=== PATIENT | female | born 1950 | race Caucasian/White ===

== ENCOUNTER 2020-01-05 10:16 | Emergency (ER) | payer OTHER, SELFPAY ==
--- NOTE | ~2020-01-05 | CT_ITS ---
EXAMINATION: CT abdomen pelvis w con DATE: 01/05/2020 11:35 INDICATION: Abdominal pain. TECHNIQUE: Computed tomography (CT) of the abdomen and pelvis was performed with 100 mL Omnipaque 350 intravenous contrast. Automated exposure control and iterative reconstruction technique were employe d. The dose-length product was 583.63 mGy-cm. COMPARISON: CT abdomen and pelvis 03/05/2019 FINDINGS: The visualized portions of the lung bases demonstrate mild atelectasis. No pleural effusion . The heart size is normal. There are coronary artery calcifications. No pericardial effusion. The li isaías, gallbladder, spleen, pancreas, and adrenal glands are normal. There is cortical thinning of the kidneys. There is an umbilical hernia containing fat. There is diverticulosis of the colon. There is fat stranding around a diverticulum of the descending colon, consistent with diverticulitis. The appe ndix is normal. There are no pathologically enlarged lymph nodes. There is no free intraperitoneal fl uid. There is severe lumbar spondylosis. IMPRESSION: 1. Acute diverticulitis of descending colon. No perforation or abscess. Reviewed, dictated and finalized at location A.
[2020-01-05 10:17] VITALS: BP 164/80; PULSE 67; RESP 16; TEMP 36.6; O2SAT 97
--- NOTE | 2020-01-05 10:25 | ED.ABDPAIN ---
HPI - Abdominal Pain General Chief Complaint: Abdominal Pain Stated Complaint: Abd Pain Time Seen by Provider: 01/05/20 10:20 Source: RN notes reviewed History of Present Illness HPI narrative: Patient presents emergency department from home for abdominal pain. Patient states symptoms been ongoing for approximately 1 week. The pain is diffuse throughout the abdomen. Described as sharp and stabbing progressively worsening. Patient states she denies any fevers or chills chest pain shortness of breath nausea vomiting diarrhea or any other symptoms. States she was seen by her PCP last week did have a covid test that was negative at that time Related Data Home Medications Medication Instructions Recorded Confirmed cholecalciferol (vitamin D3) 01/05/20 diclofenac sodium 75 mg PO DAILY 01/05/20 Allergies Allergy/AdvReac Type Severity Reaction Status Date / Time No Known Allergies Allergy Unverified 01/05/20 10:49 Review of Systems Review of Systems: Narrative: Gen.: Denies fevers or chills ENT: Denies congestion Respiratory: Denies shortness of breath or cough CV: Denies chest pain or palpitations GI: See HPI denies burning, urgency, frequency or hematuria Musculoskeletal: Denies back pain or muscle pain Neuro: Denies numbness, tingling, weakness or focal weakness Skin: Denies rash Except as documented, all other systems reviewed and negative [facility] Past Medical History Medical History (Updated 01/05/20 @ 11:48 by Graeme Deal DO) Patient denies significant medical history Family History Family History (Updated 04/05/16 @ 23:19 by DOCTOR UNKNOWN) Mother Hypertension Family history of chronic obstructive pulmonary disease Family history of diabetes mellitus in first degree relative Family history of type 2 diabetes mellitus Father Hypertension Malignant neoplasm of prostate Social History Social History (Updated 01/05/20 @ 10:26 by Graeme Deal DO) Smoking packs per day: 0.5 Smoking cigarettes per day: 10.0 Smoking status: Smoker, status unknown Alcohol intake: never Exam Narrative: Exam Narrative: APPEARANCE: No acute distress, nontoxic, resting in bed HEENT: Normocephalic, atraumatic, OMM RESPIRATORY: No respiratory distress, clear to auscultation bilaterally with no rhonchi wheezing or rales CARDIOVASCULAR: RRR s murmur ABDOMINAL: Soft, nondistended, diffusely tender to palpation, no rebound or guarding MUSCULOSKELETAl: Moves all extremities. No clubbing, cyanosis or edema. NEURO: Awake and alert. Following commands, speech normal, no focal deficits SKIN:: Warm, dry. Normal Color PSYCHIATRIC: Normal affect/mood Course Course Emergency Course: Patient states that they are feeling much better at this time. States abdominal pain has improved. Repeat abdominal exam shows the patient's abdomen to be soft with no surgical abdomen present. Discussed with patient results of workup and diagnosis. Discussed need for follow-up with primary care physician, reasons to return to the emergency department in proper use of medication. Patient understands and agrees to current treatment plan Vital Signs Vital signs: Vital Signs Temperature 97.9 F 01/05/20 10:17 Pulse Rate 67 01/05/20 10:17 Respiratory Rate 16 01/05/20 10:17 Blood Pressure 164/80 H 01/05/20 10:17 Pulse Oximetry 97 01/05/20 10:17 Temperature 97.9 F 01/05/20 10:17 Pulse Rate 67 01/05/20 10:17 Respiratory Rate 16 01/05/20 10:17 Blood Pressure 164/80 H 01/05/20 10:17 Pulse Oximetry 97 01/05/20 10:17 MDM - Abdominal Pain MDM Narrative Medical decision making narrative: Patient's abdomen is soft without significant pain or signs of surgical abdomen on serial exams. Lab and x-ray evaluations are reviewed and patient is felt to be a reasonable candidate for outpatient management. Patient was instructed as to limitations of x-ray and laboratory evaluation and encouraged to return to ED
[2020-01-05 10:54] LABS: Basophils Absolute Auto 0.1 K/mm3 (0.0-0.1); Basophils Percent Auto 0.8 % (0.2-1.2); Eosinophils Absolute Auto 0.2 K/mm3 (0-0.3); Eosinophils Percent Auto 2.4 % (0-4.4); Hematocrit 50.6 % (37.0-47.0); Hemoglobin 16.8 g/dL (12.0-15.0); Immature Granulocyte Absolute 0.03 K/mm3 (0.00-0.031); Immature Granulocyte Percent A 0.4 % (0-0.5); Lymphocytes Absolute Auto 2.38 K/mm3 (0.9-3.2); Mean Corpuscular HGB Conc 33.2 g/dl (32-36); Mean Corpuscular Hemoglobin 29.9 pg (26-34); Mean Platelet Volume 10.5 fl (7.4-10.4); Monocytes Absolute Auto 0.5 K/mm3 (0.1-0.6); Monocytes Percent Auto 6.2 % (2.6-8.5); Neutrophils Absolute Auto 4.1 K/mm3 (1.3-6.7); Neutrophils Percent Auto 57.2 % (45.5-73.1); Nucleated Red Blood Cells Perc 0.4 % (0.0-0.2); Platelet Count Result 266 k/mm3 (150-375); Red Blood Count 5.62 M/mm3 (4.2-5.4); Red Cell Distribution Width 13.2 % (11.5-14.5); White Blood Count 7.2 K/mm3 (4.5-10.0)
[2020-01-05 10:56] LABS: Add Urine Microscopic? YES; Appearance Urine Cloudy (Clear); Bacteria Urine Trace /hpf; Bilirubin Urine Negative (Negative); Blood Urine Negative (Negative); Color Urine Yellow (Yellow); Glucose Urine UA Negative (Negative); Hyaline Casts Urine 15-19 /lpf; Ketones Urine Negative (Negative); Leukocyte Esterase Ur Negative LEU/UL (Negative); Mucus Urine Heavy /lpf; Nitrate Urine Negative (Negative); Protein Urine 1+ mg/dL (Negative); RBC Urine 0-2 /hpf (0-2); Specific Grav Ur 1.024 (1.001-1.035); Squamous Epithelial Cell Urine Many /hpf (Few)
[2020-01-05] MEDS: MORPHINE SULFATE 4 MG/ML INJ IV PUSH (10:56)
[2020-01-05] MEDS: SODIUM CHLORIDE 0.9% IV 1,000 ML 999 ML IV CONT (10:56)
[2020-01-05 11:10] LABS: Alanine Aminotransferase 26 U/L (4-35); Albumin Level 4.2 g/dL (3.5-5.1); Alkaline Phosphatase 97 U/L (38-126); Aspartate Amino Transferase 37 U/L (14-36); Bilirubin,Total 1.1 mg/dL (0.2-1.3); Blood Urea Nitrogen 14 mg/dL (7-17); Calcium 9.2 mg/dL (8.4-10.2); Carbon Dioxide 25 mmol/L (22-30); Chloride 106 mmol/L (98-107); Estimated CRCL calculation 55 ml/min; Estimated Glomerular Filt Rate > 60; Glucose 103 mg/dL (65-105); Lipase 136 U/L (23-300); Potassium 3.8 mmol/L (3.4-5.0); Sodium 138 mmol/L (137-145)
[2020-01-05] MEDS: AMOXICILLIN/CLAVULANATE K 875-125 MG TAB 1 TABLET PO (11:52)
[2020-01-05 11:53] VITALS: BP 133/72; PULSE 70; RESP 16; O2SAT 100
== END 2020-01-05 12:25 | disposition home or self-care (01) ==
PROVIDERS: Emergency Provider Emergency Medicine; PCP Family Medicine
DX: K57.32 Diverticulitis of large intestine without perforation or abscess without bleeding (principal); F17.210 Nicotine dependence, cigarettes, uncomplicated; K57.92 Diverticulitis of intestine, part unspecified, without perforation or abscess without bleeding
CPT/HCPCS: 36415; 74177; 80053; 81001; 83690; 85025; 87086; 96361; 96374; 99284; A9270; J2270; J7030; Q9967

== ENCOUNTER 2020-02-15 00:25 | Outpatient (CLI) | payer OTHER, SELFPAY ==
[2020-02-15 18:58] LABS: SARS-CoV-2 RNA PCR Negative
== END 2020-02-15 00:26 | disposition home or self-care (01) ==
LOC: ANHCOVIDDT 00:25
PROVIDERS: PCP Family Medicine; Visit Provider Internal Medicine Gastroenterology
DX: Z01.818 Encounter for other preprocedural examination (principal); Z11.59 Encounter for screening for other viral diseases
CPT/HCPCS: 87635; C9803; U0003

== ENCOUNTER 2020-02-17 01:40 | Day surgery (SDC) | payer OTHER, SELFPAY ==
[2020-02-07 14:14] VITALS: BMI 30.2
[2020-02-17 08:22] VITALS: BP 127/70; PULSE 93; RESP 16; TEMP 37.2; O2SAT 99; BMI 29.6
[2020-02-17] MEDS: LACTATED RINGERS 1,000 ML 150 ML IV CONT (08:38)
--- NOTE | 2020-02-17 08:50 | WPDANESEPPF ---
Anes - Initial Pre Proc Eval Procedure: Operation Date: 02/17/20 09:30 Proposed Procedures p Colonoscopy - Justo Khan DO Date/Time: 02/17/20 08:50 Surgeon: Justo Kahn DO Pre Op Diagnosis: Diverticulitis Patient Data Age: 70 Gender: F Height: 5 ft 4 in Weight: 78.4 kg Last Vital Signs Temp 98.9 F 02/17/20 08:22 Pulse 93 02/17/20 08:22 Resp 16 02/17/20 08:22 BP 127/70 02/17/20 08:22 Pulse Ox 99 02/17/20 08:22 Allergies Allergy/AdvReac Type Severity Reaction Status Date / Time No Known Allergies Allergy Unverified 02/17/20 08:13 Home Medications Medication Instructions Recorded Confirmed Type lisinopril 10 mg tablet 10 mg PO DAILY #90 tablet 09/03/19 02/17/20 Rx rosuvastatin 20 mg tablet 20 mg PO DAILY #90 tablet 09/03/19 02/17/20 Rx linaclotide 145 mcg capsule 145 mcg PO DAILY #90 cap 09/06/19 02/17/20 Rx cholecalciferol (vitamin D3) 50,000 unit PO WEEKLY 01/05/20 02/17/20 History diclofenac sodium 75 mg PO DAILY 01/05/20 02/17/20 History clobetasol 1 applic TOPICAL HS 02/17/20 02/17/20 History estradiol [Estrace] 1 g VAGINAL WEEKLY 02/17/20 02/17/20 History Patient hx anesthesia problems: none Family hx anesthesia problems: none PMFSH Past Medical History Medical History (Updated 02/17/20 @ 08:49 by Jackson Wang MD) Hyperlipidemia Hypertension Patient denies significant medical history Family History Family History (Updated 04/05/16 @ 23:19 by DOCTOR UNKNOWN) Mother Hypertension Family history of chronic obstructive pulmonary disease Family history of diabetes mellitus in first degree relative Family history of type 2 diabetes mellitus Father Hypertension Malignant neoplasm of prostate Social History Social History (Updated 01/05/20 @ 10:26 by Graeme Deal DO) Smoking packs per day: 0.5 Smoking cigarettes per day: 10.0 Smoking status: Smoker, status unknown Alcohol intake: never Anes - Eval Final PreProcedure Day of Procedure 06/11/20 08:50 Patient weight: normal Heart: regular rate and rhythm Lungs: clear to auscultation Airway: Mallampati scale class II Neurological: alert and oriented Last oral intake: >/= 8 hours ASA classification: II Emergent: no Anesthetic plan: proceed Anesthesia type and monitoring: general GIVS and standard monitoring Informed Consent: The patient's anesthetic plan and its attendant risks and benefits were discussed with the patient/family/POA. Questions were solicited and answers provided to the satisfaction of the patient/family/POA.
--- NOTE | 2020-02-17 09:14 | PM.IMHP ---
H&P: HPI History of Present Illness Chief complaint: Diverticulitis [facility] Past Medical History Medical History (Updated 02/17/20 @ 09:14 by Justo Kahn DO) Chronic idiopathic constipation Diverticulitis Hyperlipidemia Hypertension Vitamin D deficiency Surgical History Surgical History (Updated 02/17/20 @ 09:14 by Justo Kahn DO) H/O colonoscopy Family History Family History (Updated 04/05/16 @ 23:19 by DOCTOR UNKNOWN) Mother Hypertension Family history of chronic obstructive pulmonary disease Family history of diabetes mellitus in first degree relative Family history of type 2 diabetes mellitus Father Hypertension Malignant neoplasm of prostate Social History Social History (Updated 01/05/20 @ 10:26 by Graeme Deal DO) Smoking packs per day: 0.5 Smoking cigarettes per day: 10.0 Smoking status: Smoker, status unknown Alcohol intake: never Meds Home Medications and Allergies Home Medications Medication Instructions Recorded Confirmed Type lisinopril 10 mg tablet 10 mg PO DAILY #90 tablet 09/03/19 02/17/20 Rx rosuvastatin 20 mg tablet 20 mg PO DAILY #90 tablet 09/03/19 02/17/20 Rx linaclotide 145 mcg capsule 145 mcg PO DAILY #90 cap 09/06/19 02/17/20 Rx cholecalciferol (vitamin D3) 50,000 unit PO WEEKLY 01/05/20 02/17/20 History diclofenac sodium 75 mg PO DAILY 01/05/20 02/17/20 History clobetasol 1 applic TOPICAL HS 02/17/20 02/17/20 History estradiol [Estrace] 1 g VAGINAL WEEKLY 02/17/20 02/17/20 History Allergies Allergy/AdvReac Type Severity Reaction Status Date / Time No Known Allergies Allergy Unverified 02/17/20 08:13 Vital Signs Vital Signs - 24 hr 02/17/20 08:22 Temperature 37.2 C Pulse Rate 93 Respiratory Rate 16 Blood Pressure 127/70 Pulse Oximetry 99
--- NOTE | 2020-02-17 09:16 | PM.IMHP ---
H&P: HPI History of Present Illness Chief complaint: Diverticulitis Narrative: Reason for visit diverticulitis and colonoscopy. This very pleasant lady's seen at the request of the primary physician. The patient was examined. Impression: History of diverticulitis. Chronic idiopathic constipation. Hyperlipidemia. Hypertension. Vitamin-D deficiency. Recommendation: Colonoscopy. history: This very pleasant lady has a history of diverticulitis. She has been on true 3 rounds of antibiotics. She is here for colonoscopy to assess for underlying inflammatory neoplastic disease. He does have history of chronic idiopathic constipation controlled with Linzess. She had the either a previous colonoscopy or flexible sigmoidoscopy that was negative. This was in the distant past. General: very pleasant patient in no acute distress. HEENT: Head was normocephalic sclerae is clear mouth without masses neck was supple. Heart: Rate rhythm regular without S3 or S4. Lungs: CTA. Abdomen: Soft with no guarding or rigidity. Bowel sounds were active. Neurologic: Cranial nerves 2 through 12 intact. No focal defects. No clonus. Musculoskeletal system: Revealed no joint tenderness or swelling no muscle atrophy. Extremities: Reveal no significant edema. Skin: Warm and dry with normal turgor. Mental status: intact. Patient is alert and oriented. Review of Systems Review of Systems: All systems reviewed & are unremarkable except as noted in HPI and below PMFSH Past Medical History Medical History (Updated 02/17/20 @ 09:14 by Justo Kahn DO) Chronic idiopathic constipation Diverticulitis Hyperlipidemia Hypertension Vitamin D deficiency Surgical History Surgical History (Updated 02/17/20 @ 09:14 by Justo Kahn DO) H/O colonoscopy Family History Family History (Updated 04/05/16 @ 23:19 by DOCTOR UNKNOWN) Mother Hypertension Family history of chronic obstructive pulmonary disease Family history of diabetes mellitus in first degree relative Family history of type 2 diabetes mellitus Father Hypertension Malignant neoplasm of prostate Social History Social History (Updated 01/05/20 @ 10:26 by Graeme Deal DO) Smoking packs per day: 0.5 Smoking cigarettes per day: 10.0 Smoking status: Smoker, status unknown Alcohol intake: never Meds Home Medications and Allergies Home Medications Medication Instructions Recorded Confirmed Type lisinopril 10 mg tablet 10 mg PO DAILY #90 tablet 09/03/19 02/17/20 Rx rosuvastatin 20 mg tablet 20 mg PO DAILY #90 tablet 09/03/19 02/17/20 Rx linaclotide 145 mcg capsule 145 mcg PO DAILY #90 cap 09/06/19 02/17/20 Rx cholecalciferol (vitamin D3) 50,000 unit PO WEEKLY 01/05/20 02/17/20 History diclofenac sodium 75 mg PO DAILY 01/05/20 02/17/20 History clobetasol 1 applic TOPICAL HS 02/17/20 02/17/20 History estradiol [Estrace] 1 g VAGINAL WEEKLY 02/17/20 02/17/20 History Allergies Allergy/AdvReac Type Severity Reaction Status Date / Time No Known Allergies Allergy Unverified 02/17/20 08:13 Vital Signs Vital Signs - 24 hr 02/17/20 08:22 Temperature 37.2 C Pulse Rate 93 Respiratory Rate 16 Blood Pressure 127/70 Pulse Oximetry 99
[2020-02-17 09:39] VITALS: BP 109/50; PULSE 86; RESP 26; O2SAT 92
[2020-02-17 09:49] VITALS: BP 120/67; PULSE 81; RESP 24; O2SAT 99
[2020-02-17 09:59] VITALS: BP 129/81; PULSE 72; RESP 21; O2SAT 100
== END 2020-02-17 10:20 | disposition home or self-care (01) ==
PROVIDERS: PCP Family Medicine; Visit Provider Internal Medicine Gastroenterology
PROC: 0DJD8ZZ Inspection of Lower Intestinal Tract, Via Natural or Artificial Opening Endoscopic (ICD-10-PCS; CPT 45378; principal; 2020-02-17 09:30)
DX: K57.30 Diverticulosis of large intestine without perforation or abscess without bleeding (principal); K64.8 Other hemorrhoids; K59.09 Other constipation; I10 Essential (primary) hypertension; E78.5 Hyperlipidemia, unspecified; E55.9 Vitamin D deficiency, unspecified; F17.210 Nicotine dependence, cigarettes, uncomplicated
CPT/HCPCS: 45378; J2001; J2704; J7120

== ENCOUNTER 2020-03-08 13:29 | Outpatient (CLI) | payer OTHER, SELFPAY ==
--- NOTE | ~2020-03-08 | CT_ITS ---
EXAMINATION: CT abdomen pelvis w con INDICATION: Diverticulitis, abdominal pain TECHNIQUE: Computed tomographic images of the abdomen and pelvis were obtained after the administrati on of 100 cc of Omnipaque 350 intravenous contrast. The dose-length product (DLP) was 603.23 mGy-cm. Automated exposure control and iterative reconstruction technique were employed. COMPARISON: 01/05/2020 FINDINGS: Minimal dependent atelectasis is present in the lung bases. The heart size is normal. The l iver, spleen, pancreas, gallbladder, and adrenal glands are normal. There are areas of scarring in th e otherwise normal kidneys. There is calcified and noncalcified atherosclerosis of the aorta and many other arteries. No pathologically enlarged abdominal or pelvic lymph nodes are identified. There is no free intraperitoneal gas or evidence of bowel obstruction. Colonic diverticulosis is present witho ut evidence of diverticulitis. The previously described diverticulitis of the descending colon has re solved. There is a fat-containing umbilical hernia. There is severe lumbar spondylosis. IMPRESSION: 1. Resolved diverticulitis of the descending colon. No acute findings. Reviewed, dictated and finalized at location A.
[2020-03-08 14:07] LABS: Estimated Glomerular Filt Rate > 60
== END 2020-03-08 13:30 | disposition home or self-care (01) ==
PROVIDERS: PCP Family Medicine; Visit Provider Internal Medicine Gastroenterology
DX: K57.92 Diverticulitis of intestine, part unspecified, without perforation or abscess without bleeding (principal)
CPT/HCPCS: 36415; 74177; Q9967

== ENCOUNTER 2020-04-11 06:41 | Emergency (ER) | payer OTHER, SELFPAY ==
--- NOTE | ~2020-04-11 | CT_ITS ---
EXAMINATION: CT abdomen pelvis w con INDICATION: Lower abdominal pain TECHNIQUE: Computed tomographic images of the abdomen and pelvis were obtained after the administrati on of 100 cc of Omnipaque 350 intravenous contrast. The dose-length product (DLP) was 569.63 mGy-cm. Automated exposure control and iterative reconstruction technique were employed. COMPARISON: 03/08/2020 FINDINGS: Minimal dependent atelectasis is present in the lung bases. The heart size is normal. The l iver, spleen, pancreas, gallbladder, and adrenal glands are normal. Again noted are areas of scarring in the otherwise normal kidneys. No pathologically enlarged abdominal or pelvic lymph nodes are iden tified. There is no free intraperitoneal gas or evidence of bowel obstruction. There is calcified ath erosclerosis of the aorta and many of the other arteries. Colonic diverticulosis is present without e vidence of diverticulitis. The appendix is normal. There is a fat-containing umbilical hernia. There is severe lumbar spondylosis. IMPRESSION: 1. No CT correlate for the patient's symptoms. Reviewed, dictated and finalized at location A.
--- NOTE | ~2020-04-11 | XR_ITS ---
EXAMINATION: XR chest 1V portable INDICATION: Shortness of breath and chest pain TECHNIQUE: Portable AP chest at 0727 hours COMPARISON: 08/21/2016 FINDINGS: The lungs are free of acute opacities. There is no pleural effusion or pneumothorax. The ca rdiomediastinal silhouette is normal. 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 IMPRESSION: 1. No acute cardiopulmonary abnormality. Reviewed, dictated and finalized at location A.
[2020-04-11 06:46] VITALS: BP 129/89; PULSE 97; RESP 16; TEMP 36.8; O2SAT 100
[2020-04-11 07:00] LABS: Basophils Absolute Auto 0.1 K/mm3 (0.0-0.1); Basophils Percent Auto 0.7 % (0.2-1.2); Eosinophils Absolute Auto 0.1 K/mm3 (0-0.3); Eosinophils Percent Auto 1.4 % (0-4.4); Hematocrit 52.2 % (37.0-47.0); Hemoglobin 17.6 g/dL (12.0-15.0); Immature Granulocyte Absolute 0.02 K/mm3 (0.00-0.031); Immature Granulocyte Percent A 0.2 % (0-0.5); Lymphocytes Absolute Auto 2.95 K/mm3 (0.9-3.2); Lymphocytes Percent Auto 35.6 % (18.3-44.2); Mean Corpuscular HGB Conc 33.7 g/dl (32-36); Mean Corpuscular Hemoglobin 30.5 pg (26-34); Mean Corpuscular Volume 90.5 fl (80-100); Mean Platelet Volume 10.7 fl (7.4-10.4); Monocytes Absolute Auto 0.6 K/mm3 (0.1-0.6); Neutrophils Absolute Auto 4.6 K/mm3 (1.3-6.7); Neutrophils Percent Auto 55.1 % (45.5-73.1); Platelet Count Result 242 k/mm3 (150-375); Red Blood Count 5.77 M/mm3 (4.2-5.4); White Blood Count 8.3 K/mm3 (4.5-10.0)
--- NOTE | 2020-04-11 07:06 | ECG_ITS ---
Measurements Intervals [place] Rate: 91 P: 60 [place]: 145 QRS: 29 QRSD: 94 T: 62 QT: 350 QTc: 432 Interpretive Statements SINUS RHYTHM DELAYED PRECORDIAL R/S TRANSITION BORDERLINE ST-T WAVE ABNORMALITY- HIGH LATERAL LEADS BASELINE WANDER- II, III, AVR, AVL, AVF, V1-V3 BORDERLINE ECG Electronically Signed On 04-11-2020 7:41:44 CDT by Calos Tan D.O.
[2020-04-11 07:12] LABS: Alanine Aminotransferase 25 U/L (4-35); Albumin Level 4.2 g/dL (3.5-5.1); Alkaline Phosphatase 83 U/L (38-126); Anion Gap 12.8 mmol/L (7-16); Aspartate Amino Transferase 33 U/L (14-36); Blood Urea Nitrogen 11 mg/dL (7-17); Calcium 9.6 mg/dL (8.4-10.2); Carbon Dioxide 25 mmol/L (22-30); Chloride 104 mmol/L (98-107); Estimated Glomerular Filt Rate > 60; Glucose 107 mg/dL (65-105); Lipase 131 U/L (23-300); Potassium 3.8 mmol/L (3.4-5.0); Sodium 138 mmol/L (137-145)
--- NOTE | 2020-04-11 07:14 | ED.ABDPAIN ---
HPI - Abdominal Pain General Chief Complaint: Abdominal Pain Stated Complaint: abdominal and chest pain for 7 days Time Seen by Provider: 04/11/20 07:03 Source: patient Mode of arrival: ambulatory Limitations: no limitations History of Present Illness HPI narrative: This patient is a 70 year old female with history of diverticulitis who presents for evaluation of left lower abdominal pain. She states she has had left lower abdominal pain and upper abdominal pain for 1 week. This pain is similar to her episodes of diverticulitis so she has been on antibiotics for 6 days. She describes her pain as contractions . She has associated nausea but no fever, vomiting or diarrhea. This would be her 4th episode of diverticulitis, so she has been referred to general surgeon, Dr. Crandall. elicited complaint: abdominal pain Onset (ago): day(s) (7) Location: epigastric and LLQ Pain scale (0-10): 5 Quality: cramping Exacerbating factors: nothing Relieving factors: nothing Associated symptoms: nausea Treatments prior to arrival: other (antibiotics for 6 days) Related Data Home Medications Medication Instructions Recorded Confirmed cholecalciferol (vitamin D3) 50,000 unit PO WEEKLY 01/05/20 02/17/20 diclofenac sodium 75 mg PO DAILY 01/05/20 02/17/20 clobetasol 1 applic TOPICAL HS 02/17/20 02/17/20 estradiol [Estrace] 1 g VAGINAL WEEKLY 02/17/20 02/17/20 nystatin 100,000 unit/mL oral 1 ml PO DAILY 03/09/20 suspension Allergies Allergy/AdvReac Type Severity Reaction Status Date / Time metronidazole AdvReac Vomiting Verified 04/11/20 06:51 Review of Systems Review of Systems: All systems reviewed & are unremarkable except as noted in HPI and below Constitutional: Constitutional: Denies chills and Denies fever(s) Respiratory: Respiratory: Denies cough and Reports dyspnea Gastrointestinal: Gastrointestinal: Reports abdominal pain, Reports constipation, Denies diarrhea and Denies vomiting Genitourinary: Genitourinary: Reports no additional female genitourinary complaints [facility] Past Medical History Medical History Chronic idiopathic constipation Diverticulitis Hyperlipidemia Hypertension Vitamin D deficiency Social History Social History Smoking packs per day: 0.5 Smoking cigarettes per day: 10.0 Smoking status: Smoker, status unknown Alcohol intake: never Substance use: never Gender identity (if verbalized by the patient): Female Exam Narrative: Exam Narrative: GENERAL: Well-appearing, well-nourished, and in no acute distress. HEAD: Normocephalic, atraumatic EYES: PERRLA and EOMI, conjunctiva clear without discharge THROAT:Mucous membranes moist, Oropharynx normal without erythema, exudate, peritonsillar swelling or fluctuance NECK: Supple, without lymphadenopathy or mass RESPIRATORY: No respiratory distress, Airway patent, Respirations non-labored, Clear to auscultation without rales, rhonchi or wheeze HEART: Regular rate and rhythm. No murmur heard. Normal peripheral pulses. ABDOMEN: Soft, Diffuse tenderness, nondistended, normal active bowel sounds. No masses. No rebound or guarding, No organomegaly. EXTREMITIES: No edema, normal strength with full range of motion. SKIN: Warm, dry, normal color without rash NEURO: Alert and oriented x3. CN 2-12 grossly intact. No focal deficits. PSYCH: Normal mood and affect. Course Reevaluation(s) Reevaluation #1: I have discussed with patient that labs are unremarkable and CT does not show anything to explain her pain. She is in no acute distress. She will follow up with [facility] Date: 04/11/20 Time: 09:14 Vital Signs Vital signs: Vital Signs Temperature 98.2 F 04/11/20 06:46 Pulse Rate 97 04/11/20 06:46 Respiratory Rate 16 04/11/20 06:46 Blood Pressure 129/89 04/11/20 06:46 Pulse Oximetry 100 04/11/20 06:46
[2020-04-11 07:16] LABS: Add Urine Microscopic? YES; Appearance Urine Turbid (Clear); Bacteria Urine 1+ /hpf; Bilirubin Urine Negative (Negative); Blood Urine Negative (Negative); Color Urine Amber (Yellow); Glucose Urine UA Negative (Negative); Hyaline Casts Urine 50+ /lpf; Ketones Urine Trace mg/dL (Negative); Leukocyte Esterase Ur Negative LEU/UL (Negative); Mucus Urine Heavy /lpf; Nitrate Urine Negative (Negative); Protein Urine 2+ mg/dL (Negative); Squamous Epithelial Cell Urine Many /hpf (Few); WBC Clumps Urine Present /HPF; WBC Urine 31-50 /hpf
[2020-04-11 07:30] VITALS: BP 123/68; PULSE 80; RESP 16; O2SAT 99
[2020-04-11] MEDS: SODIUM CHLORIDE 0.9% IV 1,000 ML 999 ML IV CONT (07:38)
[2020-04-11] MEDS: ONDANSETRON INJ 4 MG/2 ML VIAL IV PUSH (07:38)
[2020-04-11 07:43] LABS: Prothrombin Time 12.6 Seconds (11.1-14.7)
[2020-04-11 07:44] LABS: Lactic Acid Reflex 1.4 mmol/L (0.7-2.1); Partial Thromboplastin Time 26.4 SECONDS (22.3-36.8)
[2020-04-11 07:56] LABS: Troponin I < 0.012 ng/mL (0.000-0.034)
[2020-04-11 09:20] VITALS: BP 135/72; PULSE 76; RESP 16; O2SAT 96
== END 2020-04-11 09:20 | disposition home or self-care (01) ==
PROVIDERS: Emergency Medicine; Emergency Provider General Practice; PCP Family Medicine
DX: R10.32 Left lower quadrant pain (principal); E78.5 Hyperlipidemia, unspecified; I10 Essential (primary) hypertension; E55.9 Vitamin D deficiency, unspecified; F17.210 Nicotine dependence, cigarettes, uncomplicated; R94.31 Abnormal electrocardiogram [ECG] [EKG]
CPT/HCPCS: 36415; 71045; 74177; 80053; 81001; 83605; 83690; 84484; 85025; 85610; 85730; 87077; 87086; 87088; 87186; 93005; 96365; 96375; 99284; J0131; J2405; J7030; Q9967

== ENCOUNTER 2020-04-26 08:51 | Outpatient (CLI) | payer OTHER, SELFPAY ==
--- NOTE | ~2020-04-26 | US_ITS ---
EXAMINATION: US abdomen complete EXAM DATE: 04/26/2020 10:08 INDICATION: Right upper quadrant pain. TECHNIQUE: Multiple grayscale and Doppler images of the complete abdomen were obtained (by a technolo gist who performed the scan) and subsequently reviewed. There is no prior study for comparison. FINDINGS: The abdominal aorta is normal in caliber. Visualized portion IVC is patent. The pancreatic head a nd body are normal in appearance. The pancreatic tail is not visualized. The liver has normal echogenicity and contour. There are no focal liver lesions identified. There is no evidence of intrahepatic biliary duct dilation. Portal venous flow was seen in the hepatopedal , normal direction and has normal Doppler waveform. Common bile duct measures 4 mm, which is normal. The gallbladder wall is normal in thickness, with ex pected amount of distention. No sonographic evidence of pericholecystic fluid. There is no cholelit hiases. Technologist performing exam reports patient did not demonstrate sonographic Aparicio's sign. Please note that this sign is less reliable in patients who have received pain medication. Right kidney: There is normal contour and echogenicity. It measures 10.8 x 4.9 x 4.7 centimeters. There are no focal renal lesions identified. There is no hydronephrosis. Left kidney: There is normal contour and echogenicity. It measures 10.5 x 4.6 x 5.1 centimeters. Th ere is a 1.4 cm cyst. There is no hydronephrosis. The spleen measures 8.2 centimeters and is morphologically normal. IMPRESSION: 1. Unremarkable complete abdominal ultrasound exam. Reviewed, dictated and finalized at location B.
== END 2020-04-26 08:52 | disposition home or self-care (01) ==
PROVIDERS: PCP Family Medicine; Visit Provider Physician Assistant Medical
DX: R10.11 Right upper quadrant pain (principal)
CPT/HCPCS: 76700

== ENCOUNTER 2020-05-22 09:34 | Outpatient (CLI) | payer OTHER, SELFPAY ==
--- NOTE | ~2020-05-22 | NM_ITS ---
HEPATOBILIARY SCAN Procedure: Hepatobiliary scan performed following IV administration 4 mCi Tc 99m Choletec. At 60 min utes 1.6 mcg CCK administered IV for evaluation of gallbladder ejection fraction. Indication:Right upper quadrant pain Comparison: Ultrasound dated 04/26/2020 Findings: There is normal radiotracer uptake in the liver parenchyma with prompt excretion into the b iliary tract. Gallbladder visualized at 40 minutes. Small bowel visualized at 20 minutes. Normal g allbladder ejection fraction measures 78% (normal 10-90%, but most patients with gallbladder dysfunct ion have GBEF of less than 35%) Impression: 1: Normal hepatobiliary scan. Reviewed, dictated and finalized at location B. Impression: 1: Normal hepatobiliary scan.
== END 2020-05-22 09:35 | disposition home or self-care (01) ==
PROVIDERS: PCP Family Medicine; Visit Provider Physician Assistant Medical
DX: R10.11 Right upper quadrant pain (principal)
CPT/HCPCS: 78227; A9537; J2805

== ENCOUNTER 2020-05-23 08:30 | Outpatient (CLI) | payer OTHER, SELFPAY ==
--- NOTE | 2020-05-23 10:30 | NEURO_ITS ---
Patient Number: [id number] Impression: # Complains of pain and discomfort in right lower extremity. # History of back and neck surgery. # Normal nerve conduction study including motor, sensory and F-waves. # Normal needle/EMG exam. # Normal study. Nerve Conduction Studies Anti Sensory Summary Table Stim Site NR Peak (ms) P-T Amp (?V) Site1 Site2 Delta-P (ms) Dist (cm) Sudhir (m/s) Left Sup Fibular Anti Sensory (Ant Lat Mall) 14 cm 3.0 9.5 14 cm Ant Lat Mall 3.0 16.0 53 Right Sup Fibular Anti Sensory (Ant Lat Mall) 14 cm 2.7 30.4 14 cm Ant Lat Mall 2.7 16.0 59 Left Sural Anti Sensory (Lat Mall) Calf 3.7 8.6 Calf Lat Mall 3.7 16.0 43 Right Sural Anti Sensory (Lat Mall) Calf 3.2 34.2 Calf Lat Mall 3.2 16.0 50 Motor Summary Table Stim Site NR Onset (ms) O-P Amp (mV) Site1 Site2 Delta-0 (ms) Dist (cm) Sudhir (m/s) Left Peroneal Motor (Vastus Med) Ankle 3.6 3.0 Popit Ankle 7.4 38.0 51 Popit 11.0 2.2 Right Peroneal Motor (Vastus Med) Ankle 3.6 1.9 Popit Ankle 6.8 37.0 54 Popit 10.4 1.5 Left Tibial Motor (Abd Vasquez Brev) Ankle 4.4 5.5 Knee Ankle 7.5 42.0 56 Knee 11.9 7.3 Right Tibial Motor (Abd Vasquez Brev) Ankle 4.1 12.7 Knee Ankle 7.9 41.0 52 Knee 12.0 7.9 F Wave Studies NR F-Lat (ms) L-R F-Lat (ms) Left Peroneal (Mrkrs) (EDB) 44.26 0.00 Right Peroneal (Mrkrs) (EDB) 44.26 0.00 Left Tibial (Mrkrs) (Abd Hallucis) 45.98 0.62 Right Tibial (Mrkrs) (Abd Hallucis) 45.36 0.62 EMG Side Muscle Nerve Root Ins Act Fibs Amp Dur Recrt Comment Right AntTibialis Dp Br Fibular L4-5 Nml Nml Nml Nml Nml Right Gastroc Tibial S1-2 Nml Nml Nml Nml Nml Right Fibularis Long Sup Br Fibular L5-S1 Nml Nml Nml Nml Nml Right Flex Dig Long Tibial L5-S2 Nml Nml Nml Nml Nml Right Ext Dig Brev Dp Br Fibular L5, S1 Nml Nml Nml Nml Nml Left AntTibialis Dp Br Fibular L4-5 Nml Nml Nml Nml Nml Left Gastroc Tibial S1-2 Nml Nml Nml Nml Nml Left Fibularis Long Sup Br Fibular L5-S1 Nml Nml Nml Nml Nml Left Flex Dig Long Tibial L5-S2 Nml Nml Nml Nml Nml Left Ext Dig Brev Dp Br Fibular L5, S1 Nml Nml Nml Nml Nml Right QuadratusFem QuadFemoris L4-5, S1 Nml Nml Nml Nml Nml Left QuadratusFem QuadFemoris L4-5, S1 Nml Nml Nml Nml Nml MTDD
== END 2020-05-23 08:31 | disposition home or self-care (01) ==
PROVIDERS: PCP Family Medicine; Visit Provider Family Medicine
DX: M51.36 Other intervertebral disc degeneration, lumbar region (principal)
CPT/HCPCS: 95886; 95910

== ENCOUNTER → 2020-06-06 09:46 | Outpatient (CLI) | payer OTHER, SELFPAY ==
--- NOTE | ~2020-06-06 | MMUS_ITS ---
EXAMINATION: MM diagnostic lino BI w rosa, US breast LT limited HISTORY: Palpable lump in the upper outer quadrant of the left breast TECHNIQUE: Craniocaudal, mediolateral, and mediolateral oblique 3-D tomosynthesis images of the bandar ts were performed and synthetic 2-D images were generated. CAD analysis was submitted and interpreted . High resolution limited left breast ultrasound was performed. COMPARISON: 10/19/2018, 06/28/2015, 07/24/2012 BREAST PARENCHYMAL COMPOSITION: There are scattered areas of fibroglandular density. FINDINGS: MAMMOGRAPHIC FINDINGS: Right breast: There is no evidence of suspicious mass, calcification, or architectural distortion to suggest malignancy. There has been no suspicious interval change. Left breast: There is an approximately 2 cm irregular high density mass with indistinct margins in th e middle third of the breast at the 12:00 to 1:00 location 5 cm from the nipple corresponding to the palpable abnormality of concern. There are associated pleomorphic calcifications. ULTRASOUND: There is a 2.5 x 1.9 cm oval, hypoechoic mass with microlobulated margins and areas of posterior acou stic shadowing at the 12:00 location 7 cm from the nipple. Associated internal vascularity is also no ana luisa. IMPRESSION: 1. Suspicious left breast mass. 2. Ultrasound-guided biopsy is recommended. BI-RADS category 5, highly suggestive of malignancy. Reviewed, dictated and finalized at location A. IMPRESSION: 1. Suspicious left breast mass. 2. Ultrasound-guided biopsy is recommended. BI-RADS category 5, highly suggestive of malignancy.
== END ==
PROVIDERS: PCP Family Medicine; Visit Provider Nurse Practitioner
DX: N63.25 Unspecified lump in the left breast, overlapping quadrants (principal); R92.8 Other abnormal and inconclusive findings on diagnostic imaging of breast
CPT/HCPCS: 76642; 77062; 77066; G0279

== ENCOUNTER → 2021-09-12 10:23 | Outpatient (CLI) | payer OTHER, SELFPAY ==
--- NOTE | ~2021-09-12 | DEXA_ITS ---
Bone Density Report Name: ASHLEY CABRAL Age: 71 Sex: Female Ethnicity: White Date of : 1950 Indication: postmenopausal; screening for osteoporosis; height loss; cancer; hysterectomy; rheumatoid arthritis; Referring Provider: GIA HOPE Study: Bone densitometry was performed. Exam Date: September 12, 2021 Accession number: [id number] Bone Density: Region BMD T-score Z-score Classification AP Spine (L1-L4) 1.134 0.8 2.9 Normal Femoral Neck (Left) 0.775 -0.7 1.2 Normal Total Hip (Left) 0.837 -0.9 0.7 Normal Femoral Neck (Right) 0.817 -0.3 1.5 Normal Total Hip (Right) 0.868 -0.6 0.9 Normal Total Hip Mean 0.853 -0.8 0.8 Normal World Health Organization criteria for BMD impression classify patients as: Normal (T-score at or above -1.0), Osteopenia (T-score between -1.0 and -2.5), or Osteoporosis (T-score at or below -2.5). 10-year Fracture Risk: FRAX not reported because: All T-scores for Spine Total, Hip Total, Femoral Neck at or above -1.0 Clinical Information Provided by Patient: Has rheumatoid arthritis Has used the following medications: Vitamin D Has the following medical conditions: Cancer, Hysterectomy, breast cancer May 2020 Patient maximum height was 65 Menopause Age: 41 No regular weight bearing exercise Drinks caffeinated beverages Onset of menses at age 13 Number of children 2 Impression: The patient has normal bone mass. Discussion: BONE DENSITY IS ABOVE THE MINIMUM DESIRABLE LEVEL AT ALL SKELETAL SITES TESTED. This patient?s bone mineral density is above the minimum desirable level (T-score -1.0 or better) at all sites measured. The patient should follow a healthful lifestyle (good nutrition with adequate calcium and vitamin D, and appropriate weight-bearing exercise). Follow-Up: Consider repeating this study in 5 years or sooner if there is some new clinical indication. Reported by: [facility] on 09/12/2021 10:48:00 AM. Reviewed, dictated and finalized at location ATacos DANG
== END ==
PROVIDERS: PCP Family Medicine; Visit Provider Obstetrics & Gynecology Gynecology
DX: Z78.0 Asymptomatic menopausal state (principal)
CPT/HCPCS: 77080

== ENCOUNTER → 2021-09-27 02:19 | Outpatient (CLI) | payer OTHER, SELFPAY ==
[2021-09-27 21:12] LABS: SARS-CoV-2 RNA PCR Negative
== END ==
PROVIDERS: PCP Family Medicine; Visit Provider Family Medicine
DX: J06.9 Acute upper respiratory infection, unspecified (principal); R05.9 Cough, unspecified; Z20.822 Contact with and (suspected) exposure to COVID-19
CPT/HCPCS: C9803; U0003; U0005

== ENCOUNTER → 2022-12-05 14:18 | Outpatient (CLI) | payer OTHER, SELFPAY ==
--- NOTE | ~2022-12-05 | MR_ITS ---
MRI of the right knee Clinical history: Loose body Technique: Coronal proton density and proton density-weighted images, sagittal proton-density and T2 fat-sat images, and axial proton-density fat-saturated images were acquired. Findings: Anterior and posterior cruciate ligaments are intact. Medial collateral ligament and the la teral collateral ligament complex are intact. Popliteus tendon is intact. Medial and lateral menisci are intact, without evidence of tear. There is mild intrasubstance degener ative signal of the medial meniscus. There is moderate chondromalacia at the medial joint line. Lateral compartment articular cartilage is well preserved. There is diffuse high-grade chondromalacia patella. There is extensive moderate james dromalacia the femoral trochlea. Moderate tricompartmental osteophytes are present. Bone marrow signa ls are essentially unremarkable. Extensor mechanism is intact. There is mild edema of the quadriceps fat pad. No joint effusion or Julissa er's cyst. Impression: Moderate tricompartmental osteoarthritis, as detailed above, worst in the patellofemoral compartment. 7 mm intra-articular loose body, posterior to the PCL, as detailed above. No ligamentous injury or meniscal tear. Mild edema of the quadriceps fat pad. Correlate for impingement. Reviewed, dictated and finalized at [facility]. there is a probable 7 mm intra -articular loose body posterior to the PCL (sagittal image 16). Impression: Moderate tricompartmental osteoarthritis, as detailed above, worst in the zepeda lofemoral compartment. 7 mm intra-articular loose body, posterior to the PCL, as detailed above. No ligamentous injury or meniscal tear. Mild edema of the quadriceps fat pad. Correlate for impingement.
== END ==
PROVIDERS: PCP Family Medicine; Visit Provider Orthopaedic Surgery
DX: M23.41 Loose body in knee, right knee (principal); M17.11 Unilateral primary osteoarthritis, right knee
CPT/HCPCS: 73721

== ENCOUNTER → 2023-07-15 13:30 | Outpatient (CLI) | payer OTHER, SELFPAY ==
--- NOTE | ~2023-07-15 | XR_ITS ---
EXAMINATION: XR chest 2V Exam Date/Time: 07/15/2023 13:47 POLISHING MACHINE TENDER HISTORY: R06.02 - Shortness of breath Comparison: 04/11/2020. RESULT: Lines, tubes, and devices: None. Lungs and pleura: Linear scar/atelectasis in the right midlung, otherwise clear. Cardiomediastinal silhouette: Right hemidiaphragm elevation, otherwise stable. Other: No acute osseous or upper abdominal finding. IMPRESSION: Right hemidiaphragm elevation. Right midlung scar/atelectasis. Reviewed, dictated and finalized at location K. SHING MACHINE TENDER
== END ==
PROVIDERS: PCP Family Medicine; Visit Provider Family Medicine
DX: Q79.1 Other congenital malformations of diaphragm (principal); J98.11 Atelectasis; R06.02 Shortness of breath
CPT/HCPCS: 71046

== ENCOUNTER 2023-08-02 03:22 | Inpatient (IN) | payer OTHER, MEDICARE, SELFPAY ==
[2023-08-02] VITALS (29 sets, daily range): BP systolic 106–176; BP diastolic 50–80; PULSE 63–96; RESP 14–24; TEMP 36.3–36.9; O2SAT 90–100
--- NOTE | ~2023-08-02 | XR_ITS ---
EXAMINATION: XR chest 2V DATE: 08/02/2023 04:02 INDICATION: Chest pressure TECHNIQUE: Frontal and lateral views of the chest are obtained COMPARISON: 07/15/2023 FINDINGS: The lung volumes are low. There are minimal airspace opacities of the left lung base. No pl eural effusion or pneumothorax. The cardiomediastinal silhouette is normal. There is mild thoracic sp ondylosis. There is moderate osteoarthritis of the shoulders. IMPRESSION: 1. Left basilar airspace opacity, consistent with atelectasis versus pneumonia. Reviewed, dictated and finalized at location F. S NOTES DEVELOPER
--- NOTE | ~2023-08-02 | CT_ITS ---
EXAMINATION: CTA chest PE protocol DATE: 08/02/2023 06:01 INDICATION: Chest pain TECHNIQUE: Computed tomography angiography (CTA) of the chest was performed with 100 mL Omnipaque-350 intravenous contrast timed to evaluate the pulmonary arteries. Coronal maximum intensity projection 3D-reconstructions were created by the technologist. The dose-length product (DLP) was 238.78 mGy-cm. Automated exposure control and iterative reconstruction technique were employed. COMPARISON: None. FINDINGS: The pulmonary arteries are well-opacified. No pulmonary embolism is identified. There is mi ld dependent atelectasis. There is elevation of the right hemidiaphragm. No pleural effusion or pneum othorax. No pathologically enlarged thoracic lymph nodes are identified. The heart size is normal. Th ere is mild thoracic spondylosis. IMPRESSION: 1. No pulmonary embolus identified. 2. Mild atelectasis. Reviewed, dictated and finalized at location F. NG MACHINE OPERATOR
--- NOTE | 2023-08-02 03:24 | ECG_ITS ---
Measurements Intervals [place] Rate: 93 P: 55 IA: 168 QRS: -10 QRSD: 103 T: 67 QT: 378 QTc: 472 Interpretive Statements SINUS RHYTHM DELAYED PRECORDIAL R/S TRANSITION CONSIDER INFERIOR INFARCT, AGE INDETERMINATE ABNORMAL ECG COMPARED TO ECG 04/11/2020 06:49:22 NO SIGNIFICANT CHANGES Electronically Signed On 08-02-2023 8:31:38 REFINER OPERATOR by Calos Tan D.O.
--- NOTE | 2023-08-02 03:26 | ECG_ITS ---
Measurements Intervals [place] Rate: 85 P: 52 NH: 184 QRS: -1 QRSD: 120 T: 48 QT: 403 QTc: 479 Interpretive Statements SINUS RHYTHM INTRAVENTRICULAR CONDUCTION DELAY DELAYED PRECORDIAL R/S TRANSITION INFERIOR INFARCT, AGE INDETERMINATE BASELINE ARTIFACT- I, II, AVR ABNORMAL ECG COMPARED TO ECG 08/02/2023 03:29:18 INTRAVENTRICULAR CONDUCTION DELAY NOW PRESENT Electronically Signed On 08-02-2023 8:41:24 TRUCK OPERATOR by Calos Tan D.O.
[2023-08-02 03:47] LABS: Basophils Absolute Auto 0.1 K/mm3 (0.0-0.1); Basophils Percent Auto 1.1 % (0.2-1.2); Eosinophils Absolute Auto 0.3 K/mm3 (0-0.3); Eosinophils Percent Auto 4.5 % (0-4.4); Hematocrit 46.2 % (37.0-47.0); Hemoglobin 14.6 g/dL (12.0-15.0); Immature Granulocyte Absolute 0.02 K/mm3 (0.00-0.031); Immature Granulocyte Percent A 0.3 % (0-0.5); Lymphocytes Absolute Auto 2.56 K/mm3 (0.9-3.2); Lymphocytes Percent Auto 41.4 % (18.3-44.2); Mean Corpuscular HGB Conc 31.6 g/dl (32-36); Mean Corpuscular Hemoglobin 29.4 pg (26-34); Mean Platelet Volume 9.7 fl (7.4-10.4); Monocytes Absolute Auto 0.5 K/mm3 (0.1-0.6); Monocytes Percent Auto 8.1 % (2.6-8.5); Neutrophils Absolute Auto 2.8 K/mm3 (1.3-6.7); Neutrophils Percent Auto 44.6 % (45.5-73.1); Platelet Count Result 191 k/mm3 (150-375); Red Blood Count 4.97 M/mm3 (4.2-5.4); White Blood Count 6.2 K/mm3 (4.5-10.0)
[2023-08-02] MEDS: ASPIRIN 81 MG CHEWABLE TABLET 324 MG PO (03:55)
[2023-08-02 03:59] LABS: Lipase 173 U/L (23-300); Magnesium 2.2 mg/dL (1.6-2.3); Phosphorus 4.8 mg/dL (2.5-4.5)
[2023-08-02 04:00] LABS: Alanine Aminotransferase 20 U/L (6-35); Alkaline Phosphatase 133 U/L (38-126); Anion Gap 8 mmol/L (8-16); Aspartate Amino Transferase 37 U/L (14-36); Bilirubin,Total 0.7 mg/dL (0.2-1.3); Blood Urea Nitrogen 24 mg/dL (7-17); Carbon Dioxide 23 mmol/L (22-30); Chloride 108 mmol/L (98-107); Estimated CRCL calculation 47 ml/min; Estimated Glomerular Filt Rate 55; Glucose 113 mg/dL (65-110); Potassium 3.8 mmol/L (3.4-5.0); Sodium 139 mmol/L (137-145)
[2023-08-02 04:05] LABS: INR 0.9; Prothrombin Time 12.5 Seconds (11.1-14.7)
[2023-08-02 04:06] LABS: Partial Thromboplastin Time 28.4 SECONDS (22.3-36.8)
[2023-08-02 04:08] LABS: NT Pro B Type Natriuretic Pept 112 pg/mL (19.9-100)
[2023-08-02 04:11] LABS: Troponin I < 0.012 ng/mL (0.000-0.034)
--- NOTE | 2023-08-02 05:20 | ED.GENADULT ---
HPI - General Adult General Chief complaint: Chest Pain Stated complaint: cp Time Seen by Provider: 08/02/23 03:26 History of Present Illness HPI narrative: This is a 73-year-old female presenting ED with chief complaint of chest pain. Patient says that at 2:00 a.m. while she was sleeping she started developing achy pain that radiated across her chest to the top of both arms.. 6/10 intensity, constant and getting worse. She has never experienced pain like this before there are no exacerbating or alleviating factors. He is not associated with nausea vomiting exertion diaphoresis. She has noted that she has had increased dyspnea on exertion. No history of congestive heart failure. No history of blood clots she does have remote history of breast cancer that was successfully treated as well as Factor 5 Leiden. Related Data Home Medications Medication Instructions Recorded Confirmed clobetasol 0.05 % topical cream 1 applic topical HS 02/17/20 07/14/23 estradiol 0.01% (0.1 mg/gram) 1 g vaginal WEEKLY 02/17/20 07/14/23 vaginal cream (Estrace) Allergies Allergy/AdvReac Type Severity Reaction Status Date / Time metronidazole AdvReac Vomiting Verified 08/02/23 03:53 [facility] Past Medical History Medical History Atherosclerosis of aorta Cervicalgia Chronic idiopathic constipation Degenerative disc disease, lumbar Drug-induced polyneuropathy Gastroesophageal reflux disease without esophagitis Generalized osteoarthritis Hyperlipidemia Hypertension 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, single episode, in full remission Nicotine dependence, cigarettes, in remission Surgical History Surgical History Bilateral cataracts 2016 and 2017 H/O cervical spine surgery Discectomy X2 C5-6 and C6-7 1985 H/O colonoscopy H/O removal of neck cyst larynx cyst removal 2014 History of partial mastectomy of left breast 11/06/2020 History of tubal ligation 1985 Hx of lumbar discectomy 06/11/2019 Family History Family History Mother Hypertension Family history of chronic obstructive pulmonary disease Family history of diabetes mellitus in first degree relative Family history of type 2 diabetes mellitus Father Hypertension Malignant neoplasm of prostate Social History Social History Smoking packs per day: 0.5 Smoking cigarettes per day: 10.0 Smoking status: Former smoker Tobacco type: cigarettes Second hand tobacco smoke exposure: No Alcohol intake: never Substance use: never Substance use type: does not use Lack of Transportation: No Lack of Food: Never True Current Housing: I Have Housing Concerned About Future Housing: No Difficulty Paying Gas/Electric Bills: No Difficulty Paying for Meds: No Currently Unemployed: No Education: Trade/Vocational Certificate Difficulty w/ Childcare or Family Care: No Living arrangements: with family Occupation/Education: retired Gender identity (if verbalized by the patient): Female Sexual Orientation (if Verbalized by the Patient): Straight or Heterosexual Spiritual care concerns: No Exam Narrative: APPEARANCE: No apparent distress. Head: atraumatic. EYES: EOMI, NOSE: Atraumatic NECK: Trachea midline RESPIRATORY: No increased rate of breathing, clear to auscultation CARDIOVASCULAR: RRR, no peripheral edema ABDOMINAL: Non-distended MUSCULOSKELETAl: No obvious deformities NEURO: Alert. Moving 4/4 extremities SKIN:: Warm, dry. Normal color PSYCHIATRIC: Normal affect Course Vital Signs Vital signs: Vital Signs Temperature 98.4 F 08/02/23 03:27 Pulse Rate 94 08/02/23 03:27 Respiratory Rate 16 08/02/23 03:27 Pulse Oximetry 99 08/02/23 03:27 Oxygen Delivery Room Air 11
[2023-08-02 05:41] LABS: Glucose Point of Care 107 mg/dl (65-105)
[2023-08-02 06:42] LABS: Appearance Urine Clear (Clear); Bilirubin Urine Negative (Negative); Blood Urine Negative (Negative); Color Urine Yellow (Yellow); Glucose Urine UA Negative (Negative); Ketones Urine Negative (Negative); Leukocyte Esterase Ur Negative LEU/UL (Negative); Nitrate Urine Negative (Negative); Protein Urine Negative (Negative); Urobilinogen Urine 0.2 mg/dL (<2.0)
[2023-08-02 06:48] LABS: Specific Grav Ur 1.054 (1.001-1.035)
[2023-08-02 06:49] LABS: Add Urine Microscopic? NO
[2023-08-02 06:58] LABS: Troponin I 0.253 ng/mL (0.000-0.034)
--- NOTE | 2023-08-02 07:21 | ECG_ITS ---
Rate [place] QRSd QT QTc P QRS T Severity 85 184 120 403 479 52 -1 48 Borderline ECG SINUS RHYTHM INTRAVENTRICULAR CONDUCTION DELAY DELAYED PRECORDIAL R/S TRANSITION INFERIOR INFARCT, AGE INDETERMINATE BASELINE ARTIFACT- I, II, AVR ABNORMAL ECG COMPARED TO ECG 08/02/2023 03:29:18 INTRAVENTRICULAR CONDUCTION DELAY NOW PRESENT Electronically Signed On 08-02-2023 8:41:24 PERIANESTHESIA MANAGER by Calos DANG
[2023-08-02] MEDS: HEPARIN SODIUM 5,000 UNITS/ML VIAL 4000 UNITS IV PUSH (07:30)
[2023-08-02] MEDS: HEPARIN SOD/D5W 100 UNITS/ML 25,000 UNITS/250 ML BAG 9 UNITS IV CONT (07:31)
[2023-08-02 07:44] LABS: Basophils Absolute Auto 0.1 K/mm3 (0.0-0.1); Eosinophils Absolute Auto 0.1 K/mm3 (0-0.3); Eosinophils Percent Auto 1.7 % (0-4.4); Hematocrit 42.3 % (37.0-47.0); Hemoglobin 13.6 g/dL (12.0-15.0); Immature Granulocyte Absolute 0.02 K/mm3 (0.00-0.031); Immature Granulocyte Percent A 0.3 % (0-0.5); Lymphocytes Absolute Auto 1.16 K/mm3 (0.9-3.2); Lymphocytes Percent Auto 20.2 % (18.3-44.2); Mean Corpuscular HGB Conc 32.2 g/dl (32-36); Mean Corpuscular Volume 93.4 fl (80-100); Mean Platelet Volume 9.9 fl (7.4-10.4); Monocytes Absolute Auto 0.2 K/mm3 (0.1-0.6); Monocytes Percent Auto 4.2 % (2.6-8.5); Neutrophils Absolute Auto 4.2 K/mm3 (1.3-6.7); Neutrophils Percent Auto 72.6 % (45.5-73.1); Platelet Count Result 182 k/mm3 (150-375); Red Blood Count 4.53 M/mm3 (4.2-5.4); Red Cell Distribution Width 13.8 % (11.5-14.5); White Blood Count 5.7 K/mm3 (4.5-10.0)
--- NOTE | 2023-08-02 07:46 | PM.IMHP ---
H&P: HPI History of Present Illness Date/Time: 08/02/23 07:46 Chief Complaint: Chest pain will Narrative: 73 years old lady with history of hypertension, anemia, GERD, anxiety, breast cancer, factor 5 Leiden, present ED with a chief complaint of chest . The pain started about 2:00 a.m. today, radiated both arms, severe, constant, aching. Patient had some short of breath with exertion, denies fever, chills, nausea vomiting diarrhea. Patient came to ED for evaluation and treatment, in the ED, initial troponin negative, but the 2nd troponin up to 0.253. EKG shows sinus rhythm, nonspecific ST T-wave changes. Patient has elevated BUN creatinine ratio 24/1.0. Chest x-ray shows no acute cardiopulmonary issues blood left basilar atelectasis, CTA shows no PE. Patient received heparin drip in the bolus, nitro paste, metoprolol 25 mg once in the ED. ER physician consulted the stubber. 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, single episode, in full remission Nicotine dependence, cigarettes, in remission Surgical History Surgical History Bilateral cataracts 2016 and 2017 H/O cervical spine surgery Discectomy X2 C5-6 and C6-7 1984 H/O colonoscopy H/O removal of neck cyst larynx cyst removal 2015 History of partial mastectomy of left breast 11/06/2020 History of tubal ligation 1985 Hx of lumbar discectomy 06/11/2019 Family History Family History Mother Hypertension Family history of chronic obstructive pulmonary disease Family history of diabetes mellitus in first degree relative Family history of type 2 diabetes mellitus Father Hypertension Malignant neoplasm of prostate Social History Social History Smoking packs per day: 0.75 Smoking cigarettes per day: 15.0 Smoking status: Former smoker Tobacco type: cigarettes Second hand tobacco smoke exposure: No Smoking end date: 05/28/20 Alcohol intake: never Substance use: never Substance use type: does not use Lack of Transportation: No Lack of Food: Never True Current Housing: I Have Housing Concerned About Future Housing: No Difficulty Paying Gas/Electric Bills: No Difficulty Paying for Meds: No Currently Unemployed: No Education: Associate Degree Difficulty w/ Childcare or Family Care: No Living arrangements: with family Occupation/Education: retired Gender identity (if verbalized by the patient): Female Sexual Orientation (if Verbalized by the Patient): Straight or Heterosexual Spiritual care concerns: No Meds Home Medications and Allergies Home Medications Medication Instructions Recorded Confirmed Type estradiol 0.01% (0.1 mg/gram) 1 g vaginal WEEKLY 02/17/20 08/02/23 History vaginal cream (Estrace) esomeprazole magnesium 40 mg 40 mg PO DAILY #30 caps 11/28/22 08/02/23 Rx capsule,delayed release lisinopril 20 mg tablet 20 mg PO DAILY #90 tabs 11/28/22 08/02/23 Rx nortriptyline 50 mg capsule 100 mg PO DAILY 90 days #180 caps 06/03/23 08/02/23 Rx rosuvastatin 20 mg tablet 20 mg PO DAILY #90 tabs 06/03/23 08/02/23 Rx sertraline 100 mg tablet 150 mg PO DAILY 30 days #45 tabs 06/03/23 08/02/23 Rx Allergies Allergy/AdvReac Type Severity Reaction Status Date / Time metronidazole AdvReac Vomiting Verified 08/02/23 03:53 Vital Signs Vital Signs - 24 hr 11
--- NOTE | 2023-08-02 08:02 | ECHO_ITS ---
Patient Info Name: Zbigniew Adams Age: 73 years : 1950 Gender: Female Ht: 69 in Wt: 176 lbs BSA: 1.98 m2 HR: 87 bpm BP: 142 / 60 mmHg Heart Rhythm: Sinus Arrhythmia Technical Quality: Good Exam Date: 08/02/2023 11:29 AM Exam Location: Echo Lab Patient Status: Inpatient Admit Date: 08/02/2023 Staff Ordering Physician: Jolanta Bey MD Family Literacy Coordinator: Carmen Maurer RDCS Attending Provider: Karla Aquino DO Exam Type: CA echo doppler color flow Study Info Indications - NSTEMI Complete two-dimensional, color flow and Doppler transthoracic echocardiogram is performed. Summary 1. Complete two-dimensional, color flow and Doppler transthoracic echocardiogram is performed. 2. Normal left ventricular size and systolic function with grade 1 diastolic noncompliance. 3. No ischemic wall motion abnormalities were identified. 4. Mildly sclerotic but not stenotic aortic. Left Ventricle Left ventricular chamber dimension is normal. Left ventricular systolic function is normal, estimated at 60-65%. The left ventricular diastolic function is grade I diastolic dysfunction. Right Ventricle Right ventricular chamber dimension is normal. Left Atria Left atrial chamber dimension is mildly enlarged. Right Atria Right atrial chamber dimension is normal. Aortic Valve The aortic valve is trileaflet. There is mild aortic valve sclerosis. Pulmonic Valve The pulmonic valve is not well visualized. Mitral Valve The mitral valve has normal leaflets. There is trace mitral valve regurgitation. Tricuspid Valve The tricuspid valve leaflets are normal. Pericardium/Pleural The pericardium appears normal. Aorta The aortic root size at the sinus of Valsalva is normal. Left Ventricular Outflow Tract Name Value Normal LVOT 2D LVOT Diameter 1.8 cm LVOT Doppler LVOT Peak Gradient 4 mmHg LVOT Mean Gradient 3 mmHg LVOT VTI 25 cm LVOT VTI/AV VTI Ratio 0.7 LVOT Stroke Volume 66 ml LVOT CO 4.3 l/min LVOT CI 2.2 l/min/m2 Pulmonic Valve Name Value Normal RVOT Doppler RVOT Peak Gradient 2 mmHg PV Doppler PV Peak Gradient 4 mmHg Mitral Valve Name Value Normal MV Doppler MV Decel [place] 403 cm/s2 MV PHT 75 ms MV Area (PHT) 2.9 cm2 4.0-5.0 MV Regurgitation Doppler
[2023-08-02] MEDS: ATORVASTATIN 40 MG TABLET 80 MG PO ×2 (08:05→10:42)
[2023-08-02] MEDS: METOPROLOL TARTRATE 50 MG TAB 25 MG PO (08:05)
[2023-08-02] MEDS: NITROGLYCERIN OINTMENT 1 INCH DOSE TRANSDERM (08:05)
[2023-08-02 08:31] LABS: Partial Thromboplastin Time 27.5 SECONDS (22.3-36.8); Prothrombin Time 13.2 Seconds (11.1-14.7)
[2023-08-02 08:31] LABS: Cholesterol 157 mg/dL (0-200); HDL Direct 77 mg/dL; Triglycerides 82 mg/dL (<150)
[2023-08-02 08:48] LABS: LDL Cholesterol Direct 66 mg/dL
[2023-08-02] MEDS: SODIUM CHLORIDE 0.9% IV 1,000 ML 100 ML IV CONT ×2 (10:42→20:07)
[2023-08-02] MEDS: METOPROLOL TARTRATE 12.5 MG TABLET PO ×2 (10:42→20:06)
[2023-08-02] MEDS: ASPIRIN 81 MG ENTERIC TABLET PO (10:43)
--- NOTE | 2023-08-02 10:49 | ECG_ITS ---
Measurements Intervals [place] Rate: 67 P: 6 NC: 168 QRS: 54 QRSD: 105 T: 5 QT: 420 QTc: 446 Interpretive Statements SINUS RHYTHM DELAYED PRECORDIAL R/S TRANSITION BORDERLINE T WAVE ABNORMALITY- INFERIOR LEADS BASELINE ARTIFACT- I, II, III, AVF BORDERLINE ECG COMPARED TO ECG 08/02/2023 07:21:53 NO SIGNIFICANT CHANGES Electronically Signed On 08-02-2023 12:18:50 SCHOOL OFFICE MANAGER by Calos Tan D.O.
--- NOTE | 2023-08-02 11:17 | PM.CNCAR ---
Assessment and Plan Assessment and plan (1) Non-ST elevation MT (NSTEMI): Code(s): I21.4 - Non-ST elevation (NSTEMI) myocardial infarction Status: Acute Plan This is a 73-year-old lady with history of hypertension and prior history of smoking. She enters the hospital with acute coronary syndrome/non ST elevation MT. She has been treated appropriately with guideline directed medical therapy and does feel significantly better. Her electrocardiogram has not shown any evolving changes which is reassuring. On the other hand she does still have some very mild waxing and waning chest discomfort that is of course of some concern. For the moment I will continue her current medical therapy and observe her through the rest of this morning this afternoon. Her symptoms remain stable and significantly improved will plan for coronary angiography on Friday. Obviously if she destabilizes we will proceed with this in a more emergent fashion Rafael Acosta MD [facility] WITH [facility] History of Present Illness History of Present Illness Consult date/time: 08/02/23 11:17 Reason For Visit: NSTEMI Narrative: This is a very pleasant 73-year-old woman I am seeing this morning at the request of the hospitalist because of acute coronary syndrome/non ST elevation MT. Patient is unknown to me prior to this consultation. She states that she came to the emergency room in the middle of the night because of some chest pain that began in awakened from sleep at about 2:00 a.m. in the morning. She describes this as a dull pressure-like low substernal pain that after a while a radiated up into the region of the left shoulder and into the left arm. The symptoms were not severe but were moderate in intensity after washing this for an hour or 2 she woke her up and had him bring her to the emergency room for evaluation. In the emergency department she was found to be moderately hypertensive and she had a benign looking electrocardiogram she was treated with aspirin, nitrates, heparin and troponin levels were slightly elevated and on the 2nd sample did rise a little bit further his she was then admitted to the IMU with a diagnosis of non ST elevation MT. She states that prior to this she has no risk for about 2-3 months with physical exertion such as walking shorter distances she is experiencing worsening shortness of breath. This shortness of breath is not related with any chest pain pressure or heaviness. She denies any symptoms of orthopnea PND edema palpitations or syncope. She has never had heart problems in the past that she can recall. She does see Dr. Hawley for her primary care needs which include hypertension management she also has a diagnosis of breast cancer about 3 years ago which was managed at [facility]. She had a lumpectomy followed by radiation and chemotherapy. 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 She appears to be relatively comfortable upon entering the room to see her today. She has intravenous heparin running. She states that her chest discomfort in the emergency room was totally resolved for a while it has been waxing and waning this morning no more than 1 to 2/10 severity scale. I had another electrocardiogram repeated because of that at the time of my consultation which does not show any differences compared to the tracing from the middle of the night. Review of Systems Constitutional: Constitutional: Reports no additional constitutional complaints Eyes: Eyes: Reports no additional eye complaints ENT: Reports system reviewed and no additional complaints, except as documented Cardiovascular: Cardiovascular: Reports as per HPI and Reports chest pain Respiratory: Respiratory: Reports dyspnea on exertion Gastrointestinal: Gastrointestinal: Reports no additional gastrointestinal complaints Genitourinary: Genitourinary: Reports no additional
[2023-08-02 15:02] LABS: Partial Thromboplastin Time 83.4 SECONDS (22.3-36.8)
[2023-08-02 21:24] LABS: Partial Thromboplastin Time 132.8 SECONDS (22.3-36.8)
[2023-08-03] VITALS (17 sets, daily range): BP systolic 117–171; BP diastolic 52–80; PULSE 72–85; RESP 18–20; TEMP 36.4–37.1; O2SAT 96–100
[2023-08-03] MEDS: ACETAMINOPHEN 325 MG TABLET 650 MG PO (01:18)
[2023-08-03 05:12] LABS: Basophils Absolute Auto 0.1 K/mm3 (0.0-0.1); Basophils Percent Auto 1.1 % (0.2-1.2); Eosinophils Absolute Auto 0.2 K/mm3 (0-0.3); Eosinophils Percent Auto 3.3 % (0-4.4); Hematocrit 40.9 % (37.0-47.0); Hemoglobin 13.2 g/dL (12.0-15.0); Immature Granulocyte Absolute 0.02 K/mm3 (0.00-0.031); Immature Granulocyte Percent A 0.3 % (0-0.5); Lymphocytes Absolute Auto 1.57 K/mm3 (0.9-3.2); Lymphocytes Percent Auto 24.5 % (18.3-44.2); Mean Corpuscular HGB Conc 32.3 g/dl (32-36); Mean Corpuscular Hemoglobin 29.7 pg (26-34); Mean Corpuscular Volume 92.1 fl (80-100); Monocytes Absolute Auto 0.3 K/mm3 (0.1-0.6); Neutrophils Absolute Auto 4.2 K/mm3 (1.3-6.7); Neutrophils Percent Auto 65.8 % (45.5-73.1); Platelet Count Result 173 k/mm3 (150-375); Red Blood Count 4.44 M/mm3 (4.2-5.4); Red Cell Distribution Width 13.8 % (11.5-14.5); White Blood Count 6.4 K/mm3 (4.5-10.0)
[2023-08-03 05:39] LABS: Partial Thromboplastin Time 113.1 SECONDS (22.3-36.8)
--- NOTE | 2023-08-03 09:05 | PM.PNCARD ---
Progress Note: A&P Assessment and Plan (1) Non-ST elevation [place] (NSTEMI): Code(s): I21.4 - Non-ST elevation (NSTEMI) myocardial infarction Status: Acute Plan 73-year-old lady with ACS/non ST elevation [place]. Stable on intravenous heparin. Also on aspirin beta-maya and statin. Will proceed with coronary angiography tomorrow. Further recommendations will be pending those results/findings Rafael Acosta MD [facility] Subjective Date/time seen: Date of service: 08/03/23 09:05 Interval history: Follow-up visit in this 73-year-old woman with: Acute coronary syndrome/non ST elevation [place]. Patient is stable this morning she feels well no recurrences of chest pain. Remains on intravenous heparin infusion. Discussed the details of plans for coronary angiography tomorrow. She understands procedure and is agreeable to proceed Exam Const: General: comfortable and no acute distress HENMT: Mouth: Yes moist mucous membranes Eyes: Sclera: sclerae normal Neck: Neck: supple and no JVD Resp: Effort & Inspection: normal respiratory effort Auscultation: clear to auscultation bilaterally Cardio: Rate: regular rate Rhythm: regular rhythm GI: GI Palp: Yes Soft to palpation Auscultation: normal bowel sounds Skin: General skin exam: normal color Neuro: Other: Alert and oriented x3 Extrem: General: normal to inspection Other: Good perfusion, no edema Objective Data Vital Signs Vital Signs: Vital Signs - 24 hr 08/02/23 10:42 08/02/23 12:00 08/02/23 10:00 Temperature 36.6 C Pulse Rate 70 72 70 Respiratory Rate 14 Blood Pressure 125/65 Pulse Oximetry 90 Oxygen Delivery 08/02/23 12:00 08/02/23 12:00 08/02/23 14:00 Temperature Pulse Rate 72 88 Respiratory Rate Blood Pressure Pulse Oximetry Oxygen Delivery Room Air 08/02/23 16:00 08/02/23 16:00 08/02/23 16:00 Temperature 36.7 C Pulse Rate 70 70 70 Respiratory Rate 18 18 Blood Pressure 106/50 L Pulse Oximetry 96 96 Oxygen Delivery Room Air 08/02/23 18:00 08/02/23 20:06 08/02/23 20:00 Temperature 36.3 C L Pulse Rate 63 77 77 Respiratory Rate 18 Blood Pressure 130/59 L Pulse Oximetry 96 Oxygen Delivery 08/02/23 20:00 08/03/23 00:00 08/02/23 22:00 Temperature 36.7 C Pulse Rate 74 76 70 Respiratory Rate 18 Blood Pressure 140/67 Pulse Oximetry 98 Oxygen Delivery 08/03/23 00:00 08/03/23 00:00 08/03/23 02:00 Temperature Pulse Rate 78 76 Respiratory Rate Blood Pressure Pulse Oximetry Oxygen Delivery Room Air 08/03/23 04:00 08/03/23 04:00 08/03/23 04:00 Temperature 37.1 C Pulse Rate 79 77 Respiratory Rate 18 Blood Pressure 139/66 Pulse Oximetry 97 Oxygen Delivery Room Air 08/03/23 06:00 08/03/23 07:39 Temperature 36.4 C Pulse Rate 84 78 Respiratory Rate 20 Blood Pressure 126/73 Pulse Oximetry 96 Oxygen Delivery Intake/Output Intake/Output: Intake & Output 07/31/23 08/01/23 08/02/23 08/03/23 23:59 23:59 23:59 23:59 Intake Total 2340 0 Output Total 0 Balance 2340 0 Meds/Results Medications: Active Medications Generic Name Dose Route Start Last Admin Trade Name Freq PRN Reason Stop Dose Admin Aspirin 81 mg 08/02/23 09:00 08/02/23 10:43 Aspirin 81 Mg Enteric Tablet PO 81 mg QAM [facility] Administration Heparin Sodium (Porcine) 4,000 units 08/02/23 07:15 Heparin Sodium 5,000 Units/Ml Vial IV PUSH PRN PRN aPTT less than 55 seconds Heparin Sodium (Porcine) 3,000 units 08/02/23 07:15 Heparin Sodium 5,000 Units/Ml Vial IV PUSH PRN PRN aPTT 55 - 70 seconds Heparin Sodium/Dextrose 25,000 units in 250 mls @ 7 mls/hr 08/02/23 07:15 08/03/23 04:28 Heparin Sodium/D5w 100 Units/Ml IV CONT 700 units/hr .Q24H [facility] 7 mls/hr Titration Protocol 700 UNITS/HR Sodium Chloride 1,000 mls @ 100 mls/hr 08/02/23 08:00 08/03/23 06:10
[2023-08-03] MEDS: ROSUVASTATIN 20 MG TABLET PO (10:15)
[2023-08-03] MEDS: ASPIRIN 81 MG ENTERIC TABLET PO (10:16)
[2023-08-03] MEDS: METOPROLOL TARTRATE 12.5 MG TABLET PO ×2 (10:16→21:36)
--- NOTE | 2023-08-03 10:42 | PM.IMPN ---
Progress Note: A&P Assessment and Plan (1) Non-ST elevation [place] (NSTEMI): Code(s): I21.4 - Non-ST elevation (NSTEMI) myocardial infarction Status: Acute (2) Gastroesophageal reflux disease without esophagitis: Code(s): K21.9 - Gastro-esophageal reflux disease without esophagitis Status: Acute (3) Nicotine dependence, cigarettes, in remission: Code(s): F17.211 - Nicotine dependence, cigarettes, in remission Status: Acute (4) Hyperlipidemia: Qualifiers: Hyperlipidemia type: pure hypercholesterolemia Qualified Code(s): E78.00 - Pure hypercholesterolemia, unspecified Code(s): E78.5 - Hyperlipidemia, unspecified Status: Acute (5) Uncontrolled hypertension: Code(s): I10 - Essential (primary) hypertension Status: Acute Plan Non-STEMI Patient started have chest pain a.m. today, troponin positive, EKG shows sinus rhythm no specific T T-wave change Received aspirin 324 mg once heparin drip and bolus in the ED, continue heparin drip aspirin 81 mg daily p.o., Lipitor 80 mg daily Nitroglycerin sublingual p.r.n. Follow-up serial troponin, EKG as needed echocardiogram August 02 showed normal EF, grade 1 diastolic function on lateral ventricle. No ischemia wall motion abnormality Telemetry monitoring Consult hand sprayer by ER physician, Appreciate cardiology consultation, plans cardiac catheterization on Friday. today patient has no chest pain, shortness a breath. Continue heparin drip Uncontrolled hypertension Blood pressure was 176/80 upon arrival in the ED, received nitropaste 1 in and metoprolol 25 mg once Blood pressure is controlled, blood pressure 135/76 Continue lisinopril 20 mg daily p.o. metoprolol 12.5 b.i.d. p.o. Dehydration Elevated BUN creatinine ratio of 20 Start normal saline 100 mL/hour Follow-up BMP GERD Continue omeprazole 40 mg daily p.o. Subjective Date/time seen: 08/03/23 10:42 Interval history: I saw on exam patient today. Patient has no obvious distress, denies chest pain, shortness a breath, nausea vomiting, abdomen pain, red blood with bowel movement or black stools Exam Narrative: GENERAL: Pleasant, in no acute distress. Well-nourished. - EYES: EOMI. Anicteric. - HENT: Moist mucous membranes. - LUNGS: Clear to auscultation bilaterally, no wheezing, rhonchi, or rales. - CARDIOVASCULAR: Regular rate and rhythm. No murmur. No JVD. - ABDOMEN: Soft, non-tender and non-distended. No palpable masses. - EXTREMITIES: No edema. Peripheral pulses 2+. Non-tender. - NEUROLOGIC: No focal neurological deficits. CN II-XII grossly intact. - PSYCHIATRIC: Awake, Alert and oriented x 3. Appropriate mood and affect. - SKIN: No rashes or lesions. Warm. - LYMPH: No cervical lymphadenopathy. Objective Data Vital Signs Vital Signs: Vital Signs - 24 hr 08/02/23 12:00 08/02/23 12:00 08/02/23 12:00 Temperature 97.8 F Pulse Rate 72 72 Respiratory Rate 14 Blood Pressure 125/65 Pulse Oximetry 90 Oxygen Delivery Room Air 08/02/23 14:00 08/02/23 16:00 08/02/23 16:00 Temperature 98.0 F Pulse Rate 88 70 70 Respiratory Rate 18 18 Blood Pressure 106/50 L Pulse Oximetry 96 96 Oxygen Delivery Room Air 08/02/23 16:00 08/02/23 18:00 08/02/23 20:06 Temperature Pulse Rate 70 63 77 Respiratory Rate Blood Pressure Pulse Oximetry Oxygen Delivery 08/02/23 20:00 08/02/23 20:00 08/03/23 00:00 Temperature 97.3 F L 98.1 F Pulse Rate 77 74 76 Respiratory Rate 18 18 Blood Pressure 130/59 L 140/67 Pulse Oximetry 96 98 Oxygen Delivery 08/02/23 22:00 08/03/23 00:00 08/03/23 00:00 Temperature Pulse Rate 70 78 Respiratory Rate Blood Pressure Pulse Oximetry Oxygen Delivery Room Air 08/03/23 02:00 08/03/23 04:00 08/03/23 04:00 Temperature Pulse Rate 76 79 Respiratory Rate Blood Pressure Pulse Oximetry Oxygen Delivery Room Air
[2023-08-03 11:58] LABS: Anion Gap 8 mmol/L (8-16); Blood Urea Nitrogen 13 mg/dL (7-17); Calcium 8.5 mg/dL (8.4-10.2); Carbon Dioxide 24 mmol/L (22-30); Chloride 109 mmol/L (98-107); Estimated CRCL calculation 58 ml/min; Estimated Glomerular Filt Rate > 60; Glucose 81 mg/dL (65-110); Potassium 3.2 mmol/L (3.4-5.0); Sodium 141 mmol/L (137-145)
[2023-08-03 11:59] LABS: Partial Thromboplastin Time 77.8 SECONDS (22.3-36.8)
[2023-08-03] MEDS: HEPARIN SODIUM 5,000 UNITS/ML VIAL 3000 UNITS IV PUSH (18:25)
[2023-08-04] VITALS (29 sets, daily range): BP systolic 118–154; BP diastolic 56–75; PULSE 72–91; RESP 14–20; TEMP 36.3–36.9; O2SAT 94–100
[2023-08-04 01:16] LABS: Partial Thromboplastin Time 154.2 SECONDS (22.3-36.8)
[2023-08-04 07:05] LABS: Partial Thromboplastin Time 67.3 SECONDS (22.3-36.8)
[2023-08-04] MEDS: HEPARIN SODIUM 5,000 UNITS/ML VIAL 3000 UNITS IV PUSH (07:45)
[2023-08-04] MEDS: METOPROLOL TARTRATE 12.5 MG TABLET PO ×2 (08:40→20:51)
[2023-08-04] MEDS: ASPIRIN 81 MG ENTERIC TABLET PO (08:40)
[2023-08-04] MEDS: ROSUVASTATIN 20 MG TABLET PO (08:40)
--- NOTE | 2023-08-04 10:12 | PM.IMPN ---
Progress Note: A&P Assessment and Plan (1) Non-ST elevation [place] (NSTEMI): Code(s): I21.4 - Non-ST elevation (NSTEMI) myocardial infarction Status: Acute (2) Gastroesophageal reflux disease without esophagitis: Code(s): K21.9 - Gastro-esophageal reflux disease without esophagitis Status: Acute (3) Nicotine dependence, cigarettes, in remission: Code(s): F17.211 - Nicotine dependence, cigarettes, in remission Status: Acute (4) Hyperlipidemia: Qualifiers: Hyperlipidemia type: pure hypercholesterolemia Qualified Code(s): E78.00 - Pure hypercholesterolemia, unspecified Code(s): E78.5 - Hyperlipidemia, unspecified Status: Acute (5) Uncontrolled hypertension: Code(s): I10 - Essential (primary) hypertension Status: Acute Plan Non-STEMI Patient started have chest pain a.m. today, troponin positive, EKG shows sinus rhythm no specific T T-wave change Received aspirin 324 mg once heparin drip and bolus in the ED, continue heparin drip aspirin 81 mg daily p.o., Lipitor 80 mg daily Nitroglycerin sublingual p.r.n. Follow-up serial troponin, EKG as needed echocardiogram August 02 showed normal EF, grade 1 diastolic function on lateral ventricle. No ischemia wall motion abnormality Telemetry monitoring Consult outside industrial sales representative by ER physician, Appreciate cardiology consultation, plans cardiac catheterization today patient has no chest pain, shortness a breath. Continue heparin drip Uncontrolled hypertension Blood pressure was 176/80 upon arrival in the ED, received nitropaste 1 in and metoprolol 25 mg once Blood pressure is controlled, blood pressure 135/76 Continue lisinopril 20 mg daily p.o. metoprolol 12.5 b.i.d. p.o. Dehydration Elevated BUN creatinine ratio of 20 Start normal saline 100 mL/hour Follow-up BMP GERD Continue omeprazole 40 mg daily p.o. Subjective Date/time seen: 08/04/23 10:12 Interval history: I saw on exam patient today. Patient denies chest pain, shortness a breath, nausea vomiting, abdomen pain, red blood with bowel movement or black stools Exam Narrative: GENERAL: Pleasant, in no acute distress. Well-nourished. - EYES: EOMI. Anicteric. - HENT: Moist mucous membranes. - LUNGS: Clear to auscultation bilaterally, no wheezing, rhonchi, or rales. - CARDIOVASCULAR: Regular rate and rhythm. No murmur. No JVD. - ABDOMEN: Soft, non-tender and non-distended. No palpable masses. - EXTREMITIES: No edema. Peripheral pulses 2+. Non-tender. - NEUROLOGIC: No focal neurological deficits. CN II-XII grossly intact. - PSYCHIATRIC: Awake, Alert and oriented x 3. Appropriate mood and affect. - SKIN: No rashes or lesions. Warm. - LYMPH: No cervical lymphadenopathy. Objective Data Vital Signs Vital Signs: Vital Signs - 24 hr 08/03/23 10:16 08/03/23 11:32 08/03/23 12:00 Temperature 97.8 F Pulse Rate 78 85 72 Respiratory Rate 18 Blood Pressure 171/80 H Pulse Oximetry 100 Oxygen Delivery 08/03/23 12:00 08/03/23 16:00 08/03/23 14:00 Temperature 98.1 F Pulse Rate 76 73 Respiratory Rate 18 Blood Pressure 139/58 L Pulse Oximetry 99 Oxygen Delivery Room Air 08/03/23 16:00 08/03/23 16:00 08/03/23 18:00 Temperature Pulse Rate 77 77 78 Respiratory Rate 18 Blood Pressure Pulse Oximetry 99 Oxygen Delivery Room Air 08/03/23 19:57 08/03/23 21:36 08/03/23 20:00 Temperature 97.8 F Pulse Rate 77 81 79 Respiratory Rate 18 Blood Pressure 117/52 L Pulse Oximetry 96 Oxygen Delivery 08/03/23 22:00 08/03/23 20:00 08/04/23 00:23 Temperature 97.9 F Pulse Rate 83 78 Respiratory Rate 18 Blood Pressure 131/67 Pulse Oximetry 96 Oxygen Delivery Room Air 08/04/23 00:00 08/04/23 00:00 08/04/23 02:00 Temperature Pulse Rate 76 75 Respiratory Rate Blood Pressure Pulse Oximetry Oxygen Delivery Room Air 08/04/23 03:58 08/04/23 04:00
[2023-08-04 10:48] LABS: Anion Gap 7 mmol/L (8-16); Blood Urea Nitrogen 14 mg/dL (7-17); Calcium 8.8 mg/dL (8.4-10.2); Carbon Dioxide 24 mmol/L (22-30); Chloride 108 mmol/L (98-107); Estimated CRCL calculation 58 ml/min; Estimated Glomerular Filt Rate > 60; Glucose 91 mg/dL (65-110); Potassium 3.7 mmol/L (3.4-5.0); Sodium 139 mmol/L (137-145)
[2023-08-04 11:24] LABS: Basophils Absolute Auto 0.1 K/mm3 (0.0-0.1); Basophils Percent Auto 1.1 % (0.2-1.2); Eosinophils Absolute Auto 0.3 K/mm3 (0-0.3); Eosinophils Percent Auto 5.2 % (0-4.4); Hematocrit 44.2 % (37.0-47.0); Hemoglobin 14.1 g/dL (12.0-15.0); Immature Granulocyte Absolute 0.02 K/mm3 (0.00-0.031); Immature Granulocyte Percent A 0.3 % (0-0.5); Lymphocytes Absolute Auto 1.75 K/mm3 (0.9-3.2); Lymphocytes Percent Auto 28.5 % (18.3-44.2); Mean Corpuscular HGB Conc 31.9 g/dl (32-36); Mean Corpuscular Hemoglobin 29.9 pg (26-34); Mean Corpuscular Volume 93.8 fl (80-100); Monocytes Absolute Auto 0.4 K/mm3 (0.1-0.6); Monocytes Percent Auto 6.4 % (2.6-8.5); Neutrophils Absolute Auto 3.6 K/mm3 (1.3-6.7); Neutrophils Percent Auto 58.5 % (45.5-73.1); Platelet Count Result 184 k/mm3 (150-375); Red Blood Count 4.71 M/mm3 (4.2-5.4); Red Cell Distribution Width 13.7 % (11.5-14.5); White Blood Count 6.1 K/mm3 (4.5-10.0)
--- NOTE | 2023-08-04 12:50 | WPDMODSED ---
Moderate Sedation Note-Pt Data Patient Data Diagnosis: acute coronary syndrome/ non ST elevation [place] Present Complaint: no complain Procedure to be performed/Plan: left heart catheterization Allergies Allergy/AdvReac Type Severity Reaction Status Date / Time metronidazole AdvReac Vomiting Verified 08/02/23 03:53 Home Medications Medication Instructions Recorded Confirmed Type estradiol 0.01% (0.1 mg/gram) 1 g vaginal WEEKLY 02/17/20 08/02/23 History vaginal cream (Estrace) esomeprazole magnesium 40 mg 40 mg PO DAILY #30 caps 11/28/22 08/02/23 Rx capsule,delayed release lisinopril 20 mg tablet 20 mg PO DAILY #90 tabs 11/28/22 08/02/23 Rx nortriptyline 50 mg capsule 100 mg PO DAILY 90 days #180 caps 06/03/23 08/02/23 Rx rosuvastatin 20 mg tablet 20 mg PO DAILY #90 tabs 06/03/23 08/02/23 Rx sertraline 100 mg tablet 150 mg PO DAILY 30 days #45 tabs 06/03/23 08/02/23 Rx Current Medications: Active Medications Aspirin (Aspirin 81 Mg Enteric Tablet) 81 mg PO QAM [facility] Last Admin: 08/04/23 08:40 Dose: 81 mg Heparin Sodium (Porcine) (Heparin Sodium 5,000 Units/Ml Vial) 4,000 units IV PUSH PRN PRN PRN Reason: aPTT less than 55 seconds Heparin Sodium (Porcine) (Heparin Sodium 5,000 Units/Ml Vial) 3,000 units IV PUSH PRN PRN PRN Reason: aPTT 55 - 70 seconds Last Admin: 08/04/23 07:45 Dose: 3,000 units Heparin Sodium/Dextrose (Heparin Sodium/D5w 100 Units/Ml) 25,000 units in 250 mls @ 7 mls/hr IV CONT .Q24H [facility]; Protocol Last Titration: 08/04/23 07:45 Dose: 700 units/hr, 7 mls/hr Metoprolol Tartrate (Metoprolol Tartrate 12.5 Mg Tablet) 12.5 mg PO Q12HR [facility] Last Admin: 08/04/23 08:40 Dose: 12.5 mg Nitroglycerin (Nitroglycerin Sl 0.4 Mg Tablet) 0.4 mg SUBLINGUAL Q5MIN PRN PRN Reason: Chest Pain Perflutren Lipid Microsphere (Perflutren Lipid Microspheres 1.5 Ml Vial Diluted To 10 Ml Total Volume) 0 ml IV PUSH ONCE PRN; Protocol PRN Reason: adequate visualization Stop: 08/05/23 08:01 Rosuvastatin Calcium (Rosuvastatin 20 Mg Tablet) [facility] [place] Last Admin: 08/04/23 08:40 Dose: 20 mg Sedation/Anesthesia: No previous sedation/anesthesia problems (including family history). [facility] Past Medical History Medical History Atherosclerosis of aorta Cervicalgia Chronic idiopathic constipation Degenerative disc disease, lumbar Drug-induced polyneuropathy Gastroesophageal reflux disease without esophagitis Generalized osteoarthritis Hyperlipidemia Hypertension 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, single episode, in full remission Nicotine dependence, cigarettes, in remission Surgical History Surgical History Bilateral cataracts 2016 and 2017 H/O cervical spine surgery Discectomy X2 C5-6 and C6-7 1984 H/O colonoscopy H/O removal of neck cyst larynx cyst removal 2014 History of partial mastectomy of left breast 11/06/2020 History of tubal ligation 1985 Hx of lumbar discectomy 06/11/2019 Family History Family History Mother Hypertension Family history of chronic obstructive pulmonary disease Family history of diabetes mellitus in first degree relative Family history of type 2 diabetes mellitus Father Hypertension Malignant neoplasm of prostate Social History Social History Smoking packs per day: 0.75 Smoking cigarettes per day: 15.0 Smoking status: Former smoker Tobacco type: cigarettes Second hand tobacco smoke exposure: No Smoking end date: 05/28/20 Alcohol intake: never Substance use: never Substance use type: does not use Lack of Transportation: No Lack of Food: Never True Current Housing: I Have Housing Concerned About Future Housing: No Difficulty Paying Gas/Electric Bills: No Difficulty Pay
--- NOTE | 2023-08-04 13:30 | PC.NURSE ---
Pt to labor mediator via bed. Family at bedside. Heparin gtt paused for cardiac cath.
[2023-08-04 13:48] LABS: Partial Thromboplastin Time 113.6 SECONDS (22.3-36.8)
--- NOTE | 2023-08-04 14:11 | WPDCARDPROC ---
Cardiac Cath Procedure Note Date of procedure:: 08/04/23 Performing physician:: Rafael Acosta MD Indication:: non ST-elevation [place] Brief clinical history:: this is a 73-year-old woman without previous cardiac history. She has a history of hypertension and previous history of cigarette smoking as well as dyslipidemia. Patient entered the hospital 2 days ago with an episode of chest pain at resulted in a moderate troponin rise but no ECG abnormalities. In this setting and angiogram has been recommended. Procedure Procedure performed:: Left ventriculogram coronary angiogram Sedation/Medication given:: fentanyl 50 mg Versed 2 mg case start time 1:51 p.m. case end time 2:07 p.m. sedation provided by Bonny Hernandez RN, trained observer Access site:: right femoral artery Estimated blood loss:: 25 cc Procedure note:: patient was brought to the cardiac catheterization lab in the postabsorptive state where the right femoral triangle was prepped and draped in the normal fashion. Anesthesia was provided with 1% lidocaine infiltrated locally. Using the modified Seldinger technique 5 Pashto sheath was placed into the femoral artery after this left heart catheterization was carried out. I used a 5 Pashto angled pigtail catheter to measure left-sided hemodynamics and to inject left ventriculography in the 30 degree MARI projection. Following this standard FL4 catheter and JR4 catheters were used to inject the left and right coronary arteries respectively in multiple projections. The cineangiograms were then reviewed and the case was terminated. An angiogram was injected from the femoral artery through the sheath after which we elected to have the sheath removed with direct manual compression rather than a Angio-Seal device. Patient was stable following the procedure there were no apparent complications and she left the cheesemaking laborer with no signs of groin hematoma. Findings:: Hemodynamics: Central aortic pressure is 160 over 76 left ventricle 160/5 end-diastolic pressure 16 there is no gradient on pullback across the aortic valve. Left ventricle: Left ventricle is normal in size all segments contract appropriately the ejection fraction is 65% without regional wall motion abnormalities. The left main coronary artery is widely patent the left anterior descending is a large caliber artery extending down to around the apex. The LAD in its broad branches are smooth and angiographically normal in appearance the circumflex is a large caliber vessel giving rise to 1 very large OM branch and a posterior branch. The OM branch has a distal trifurcation area. The inferior most branch of this trifurcation is 100% occluded. This is a very small distal vessel. Presumably the culprit for the patient's presentation the right coronary artery is large in caliber and dominant to the posterior circulation the right coronary artery is angiographically unremarkable in appearance Conclusion:: 1. right coronary dominant circulation with single-vessel coronary artery disease consisting of 100% occlusion of a very distal sub branch of the circumflex OM branch as described above. this appears to be the culprit for the patient's presentation with non-STEMI with benign ECG and modest troponin rise. 2. Normal left ventricular systolic function as visualized in the MARI projection 3. medical therapy for this will be recommended Rafael Acosta MD [facility]
[2023-08-04 14:27] LABS: Activated Clotting Time 137 SEC (74-137)
--- NOTE | 2023-08-04 16:18 | PC.NURSE ---
Pt returned from cardiac test lab technician via bed. No issues noted. Family at bedside
[2023-08-04] MEDS: SODIUM CHLORIDE 0.9% IV 1,000 ML 125 ML IV CONT (16:26)
[2023-08-05] VITALS (7 sets, daily range): BP systolic 116–138; BP diastolic 56–63; PULSE 76–87; RESP 14–18; TEMP 36.4–36.6; O2SAT 96–98
[2023-08-05 05:28] LABS: Basophils Absolute Auto 0.1 K/mm3 (0.0-0.1); Eosinophils Absolute Auto 0.3 K/mm3 (0-0.3); Eosinophils Percent Auto 4.6 % (0-4.4); Hemoglobin 13.3 g/dL (12.0-15.0); Immature Granulocyte Absolute 0.02 K/mm3 (0.00-0.031); Immature Granulocyte Percent A 0.3 % (0-0.5); Lymphocytes Absolute Auto 1.37 K/mm3 (0.9-3.2); Lymphocytes Percent Auto 21.8 % (18.3-44.2); Mean Corpuscular HGB Conc 31.7 g/dl (32-36); Mean Corpuscular Hemoglobin 29.4 pg (26-34); Mean Corpuscular Volume 92.7 fl (80-100); Mean Platelet Volume 9.9 fl (7.4-10.4); Monocytes Absolute Auto 0.4 K/mm3 (0.1-0.6); Neutrophils Absolute Auto 4.1 K/mm3 (1.3-6.7); Neutrophils Percent Auto 65.3 % (45.5-73.1); Platelet Count Result 174 k/mm3 (150-375); Red Blood Count 4.53 M/mm3 (4.2-5.4); Red Cell Distribution Width 13.6 % (11.5-14.5); White Blood Count 6.3 K/mm3 (4.5-10.0)
[2023-08-05 05:40] LABS: Anion Gap 7 mmol/L (8-16); Blood Urea Nitrogen 14 mg/dL (7-17); Calcium 8.6 mg/dL (8.4-10.2); Carbon Dioxide 23 mmol/L (22-30); Chloride 106 mmol/L (98-107); Estimated CRCL calculation 58 ml/min; Estimated Glomerular Filt Rate > 60; Glucose 93 mg/dL (65-110); Potassium 3.7 mmol/L (3.4-5.0); Sodium 136 mmol/L (137-145)
[2023-08-05] MEDS: ROSUVASTATIN 20 MG TABLET PO (08:59)
[2023-08-05] MEDS: METOPROLOL TARTRATE 12.5 MG TABLET PO (08:59)
[2023-08-05] MEDS: ASPIRIN 81 MG ENTERIC TABLET PO (09:00)
--- NOTE | 2023-08-05 10:29 | PCCPR ---
Spoke with pt and her regarding [facility] program objectives. She verbalized understanding and interest. Her states he was a graduate of our program several years ago. Informational hand out left with her and explained our coordinator would be calling her to schedule an apt.
--- NOTE | 2023-08-05 14:03 | PM.DS ---
DS: Admitting Diagnosis Discharge Date 08/05/2023 Admitting Diagnosis Chest pain DS: Discharge Diagnosis Discharge Diagnosis (1) Uncontrolled hypertension: Code(s): I10 - Essential (primary) hypertension Status: Acute (2) Non-ST elevation [place] (NSTEMI): Code(s): I21.4 - Non-ST elevation (NSTEMI) myocardial infarction Status: Acute (3) Gastroesophageal reflux disease without esophagitis: Code(s): K21.9 - Gastro-esophageal reflux disease without esophagitis Status: Acute (4) Nicotine dependence, cigarettes, in remission: Code(s): F17.211 - Nicotine dependence, cigarettes, in remission Status: Acute Plan Non-STEMI Patient started have chest pain a.m. today, troponin positive, EKG shows sinus rhythm no specific? T T-wave change Received aspirin 324 mg once heparin drip and bolus in the ED, continue heparin drip aspirin 81 mg daily p.o., Lipitor 80 mg daily Nitroglycerin sublingual p.r.n. Follow-up serial troponin, EKG as needed ?echocardiogram August 02 showed normal EF, grade 1 diastolic function on lateral ventricle.? No ischemia wall motion abnormality Telemetry monitoring Consult maintenance apprentice by ER physician, Appreciate cardiology consultation, plans cardiac catheterization today patient has no chest pain, shortness a breath.? Continue heparin drip Uncontrolled hypertension Blood pressure was 176/80 upon arrival in the ED, received nitropaste 1 in and metoprolol 25 mg once Blood pressure is controlled, blood pressure 135/76 Continue lisinopril 20 mg daily p.o. metoprolol 12.5 b.i.d. p.o. Dehydration Elevated BUN creatinine ratio of 20 Start normal saline 100 mL/hour Follow-up BMP GERD Continue omeprazole 40 mg daily p.o. DS: Summary Hospital Course Hospital Course: Patient started have chest pain a.m. today, troponin positive, EKG shows sinus rhythm no specific? T T-wave change Received aspirin 324 mg once heparin drip and bolus in the ED, continue heparin drip aspirin 81 mg daily p.o., Lipitor 80 mg daily Nitroglycerin sublingual p.r.n. Follow-up serial troponin, EKG as needed ?echocardiogram August 02 showed normal EF, grade 1 diastolic function on lateral ventricle.? No ischemia wall motion abnormality Telemetry monitoring Consult maintenance apprentice by ER physician, Appreciate cardiology consultation, plans cardiac catheterization today patient has no chest pain, shortness a breath.? Continue heparin drip Pt had a heart cath findings as below. 1. ? right coronary dominant circulation with single-vessel coronary artery disease consisting of 100% occlusion of a very distal sub branch of the circumflex OM branch as described above. ? this appears to be the culprit for the patient's presentation with non-STEMI with benign ECG and modest troponin rise. 2.? ? Normal left ventricular systolic function as visualized in the MARI projection 3. ? medical therapy for this will be recommended, cardiology ok to dc Time Spent with Patient Time attestation: Total time spent providing and/or coordinating discharge services:40 minutes on day of dc Exam Const: General: comfortable and no acute distress HENMT: Mouth: Yes moist mucous membranes Eyes: General: appearance normal, both eyes and all related structures Sclera: sclerae normal Neck: Neck: supple Resp: Effort & Inspection: normal respiratory effort Cardio: Rate: regular rate Rhythm: regular rhythm Skin: General skin exam: normal color Neuro: Speech: normal speech Psych: Mental Status: mental status grossly normal Affect: normal affect DS: Data Data Completed and Pending Labs on day of discharge: Labs from last 24 hours 08/05/23 08/04/23 04:55 14:11 WBC 6.3 RBC 4.53 Hgb 13.3 Hct 42.0 MCV 92.7 MCH 29.4 MCHC 31.7 L RDW 13.6 Plt Count 174 MPV 9.9 Immature Gran % (Auto) 0.3 Neut % (Auto) 65.3 Lymph % (Auto) 21.8 [place] % (Auto) 7.0 Eos % (Auto) 4.6 H Baso % (Aut
--- NOTE | 2023-08-05 14:23 | PM.PNCARD ---
Progress Note: A&P Assessment and Plan (1) Non-ST elevation SD (NSTEMI): Code(s): I21.4 - Non-ST elevation (NSTEMI) myocardial infarction Status: Acute Assessment and Plan: Cardiac catheterization 08/04 showed: 1. ? Right coronary dominant circulation with single-vessel coronary artery disease consisting of 100% occlusion of a very distal sub branch of the circumflex OM branch as described above. This appears to be the culprit for the patient's presentation with non-STEMI with benign ECG and modest troponin rise. 2. ? Normal left ventricular systolic function as visualized in the MARI projection 3.? Medical therapy for this will be recommended For medical management of NSTEMI, patient to be on: ASA 81mg once daily indefinitely Will start Plavix. Plavix 75mg once daily for at least 1 year. Beta maya. Will switch Metoprolol tartrate to Metoprolol succinate. High intensity statin. Patient okay to discharge home from a cardiology standpoint. Will arrange for outpatient follow up with Dr. Acosta. Recommendations/Plan discussed with Hospitalist. Subjective Date/time seen: 08/05/23 14:23 Interval history: Reason for visit: NSTEMI Doing well today. No cardiac symptoms. Feeling well. Review of Systems Review of Systems: No chest pain, palpitations, shortness of breath. Exam Const: General: comfortable and no acute distress HENMT: Mouth: Yes moist mucous membranes Eyes: General: appearance normal, both eyes and all related structures Sclera: sclerae normal Neck: Neck: supple Resp: Effort & Inspection: normal respiratory effort Cardio: Rate: regular rate Rhythm: regular rhythm Skin: General skin exam: normal color Neuro: Speech: normal speech Psych: Mental Status: mental status grossly normal Affect: normal affect Objective Data Vital Signs Vital Signs: Vital Signs - 24 hr 08/04/23 14:36 08/04/23 15:15 08/04/23 15:30 Temperature Pulse Rate 84 83 84 Respiratory Rate 20 19 15 Blood Pressure 132/65 145/72 H 148/70 H Pulse Oximetry 97 100 97 Oxygen Delivery Room Air Room Air Room Air 08/04/23 15:45 08/04/23 16:00 08/04/23 14:40 Temperature Pulse Rate 84 87 82 Respiratory Rate 20 19 17 Blood Pressure 153/69 H 152/75 H 130/57 L Pulse Oximetry 96 97 98 Oxygen Delivery Room Air Room Air Room Air 08/04/23 14:45 08/04/23 14:50 08/04/23 14:55 Temperature Pulse Rate 82 83 83 Respiratory Rate 20 18 19 Blood Pressure 144/74 H 138/63 145/75 H Pulse Oximetry 96 97 98 Oxygen Delivery Room Air Room Air Room Air 08/04/23 15:00 08/04/23 16:30 08/04/23 16:56 Temperature 36.4 C 36.6 C Pulse Rate 85 86 86 Respiratory Rate 14 18 18 Blood Pressure 154/73 H 149/72 H 145/75 H Pulse Oximetry 99 99 97 Oxygen Delivery Room Air 08/04/23 18:00 08/04/23 18:00 08/04/23 18:58 Temperature 36.8 C 36.7 C Pulse Rate 88 80 88 Respiratory Rate 18 18 Blood Pressure 148/75 H 118/62 Pulse Oximetry 95 94 Oxygen Delivery 08/04/23 20:00 08/04/23 20:51 08/04/23 20:00 Temperature 36.6 C Pulse Rate 88 91 Respiratory Rate 18 Blood Pressure 118/56 L Pulse Oximetry 94 Oxygen Delivery Room Air 08/04/23 21:44 08/04/23 23:59 08/05/23 00:00 Temperature 36.3 C L Pulse Rate 88 79 Respiratory Rate 18 Blood Pressure 135/74 Pulse Oximetry 96 Oxygen Delivery Room Air 08/05/23 04:00 08/05/23 04:00 08/05/23 04:32 Temperature 36.6 C Pulse Rate 87 84 Respiratory Rate 18 Blood Pressure 138/56 L Pulse Oximetry 96 Oxygen Delivery Room Air 08/05/23 08:59 08/05/23 08:00 08/05/23 08:00 Temperature 36.4 C Pulse Rate 85 85 Respiratory Rate 16 Blood Pressure 116/62 Pulse Oximetry 98 98 Oxygen Delivery Room Air 08/05/23 12:00 Temperature 36.6 C Pulse Rate 76 Respiratory Rate 14 Blood Pressure 126/63 Pulse Oximetry 97 Oxygen Delivery Intake/Output Intake/Output: Intake & Output 08/02/23 08/03/23
[2023-08-05] MEDS: CLOPIDOGREL BISULFATE 75 MG TABLET PO (16:20)
== END 2023-08-05 16:25 | disposition home or self-care (01) | DRG 282 ==
LOC: ANHED 07:23 → ANHIMU 08:42
PROVIDERS: Internal Medicine; Specialist; Admitting Provider Hospitalist; Emergency Provider Emergency Medicine; PCP Family Medicine; Visit Provider Family Medicine
PROC: 4A023N7 Measurement of Cardiac Sampling and Pressure, Left Heart, Percutaneous Approach (ICD-10-PCS; CPT 93452; principal; 2023-08-04 14:30)
DX: I21.4 Non-ST elevation (NSTEMI) myocardial infarction (principal); I25.10 Atherosclerotic heart disease of native coronary artery without angina pectoris; I10 Essential (primary) hypertension; E86.0 Dehydration; K21.9 Gastro-esophageal reflux disease without esophagitis; I70.0 Atherosclerosis of aorta; M51.36 Other intervertebral disc degeneration, lumbar region; E78.5 Hyperlipidemia, unspecified; M15.9 Polyosteoarthritis, unspecified; G62.0 Drug-induced polyneuropathy; T50.905A Adverse effect of unspecified drugs, medicaments and biological substances, initial encounter; F41.9 Anxiety disorder, unspecified; Z85.3 Personal history of malignant neoplasm of breast; Z98.1 Arthrodesis status; Z87.891 Personal history of nicotine dependence
CPT/HCPCS: 36415; 71046; 71275; 80048; 80053; 80061; 81003; 82948; 83690; 83735; 83880; 84100; 84484; 85025; 85610; 85730; 93005; 93306; 93458; 99291; A9270; C1887; C1894; J1644; J2250; J3010; J7030; J7040; Q9967

== ENCOUNTER 2023-11-05 13:30 | Outpatient (RCR) | payer OTHER, SELFPAY | END 2023-11-20 13:50 | disposition home or self-care (01) | LOC: ANHCPREHAB 13:30 | PROVIDERS: PCP Family Medicine; Visit Provider Specialist | DX: I25.2 Old myocardial infarction (principal) | CPT/HCPCS: 93798 ==

== ENCOUNTER 2024-07-23 12:59 | Outpatient (CLI) | payer OTHER, SELFPAY ==
--- NOTE | 2024-07-23 13:33 | ECG_ITS ---
Test Date: 2024-07-23 13:42:30 Measurements Intervals [place] Rate: 87 P: 59 ID: [id number] QRS: 9 QRSD: 101 T: 49 QT: 377 QTc: 456 Interpretive Statements SINUS RHYTHM POSSIBLE LEFT ATRIAL ENLARGEMENT DELAYED PRECORDIAL R/S TRANSITION BORDERLINE ECG No previous ECG available for comparison Electronically Signed On 07-23-2024 13:50:07 [employer]OW FARM TECHNICIAN by Calos Tan D.O.
[2024-07-23 14:47] LABS: Hematocrit 46.5 % (37.0-47.0); Hemoglobin 15.5 g/dL (12.0-15.0); Mean Corpuscular HGB Conc 33.3 g/dl (32-36); Mean Corpuscular Hemoglobin 30.9 pg (26-34); Mean Corpuscular Volume 92.6 fl (80-100); Mean Platelet Volume 10.6 fl (7.4-10.4); Platelet Count Result 210 k/mm3 (150-375); Red Blood Count 5.02 M/mm3 (4.2-5.4); Red Cell Distribution Width 13.2 % (11.5-14.5); White Blood Count 5.5 K/mm3 (4.5-10.0)
[2024-07-23 14:53] LABS: Add Urine Microscopic? YES; Appearance Urine Clear (Clear); Bacteria Urine None Seen /hpf; Bilirubin Urine Negative (Negative); Blood Urine Negative (Negative); Color Urine Yellow (Yellow); Glucose Urine UA Negative (Negative); Ketones Urine Negative (Negative); Leukocyte Esterase Ur Trace LEU/UL (Negative); Nitrate Urine Negative (Negative); Non Pathogenic Casts 0-2; Protein Urine Negative (Negative); RBC Urine 0-2 /hpf (0-2); Specific Grav Ur 1.018 (1.001-1.035); Squamous Epithelial Cell Urine Occasional /hpf (Few); WBC Urine 0-5 /hpf (0-3); pH Urine 5.5 (5.0-9.0)
[2024-07-23 15:00] LABS: Alanine Aminotransferase 27 U/L (6-35); Albumin Level 4.5 g/dL (3.5-5.1); Alkaline Phosphatase 100 U/L (38-126); Anion Gap 8 mmol/L (4-12); Aspartate Amino Transferase 45 U/L (14-36); Bilirubin,Total 1.4 mg/dL (0.2-1.3); Blood Urea Nitrogen 18 mg/dL (7-17); Calcium 9.6 mg/dL (8.4-10.2); Carbon Dioxide 25 mmol/L (22-30); Chloride 104 mmol/L (98-107); Estimated Glomerular Filt Rate > 60; Glucose 99 mg/dL (65-110); Potassium 4.5 mmol/L (3.4-5.0); Prothrombin Time 13.1 Seconds (11.1-14.7); Sodium 137 mmol/L (137-145)
[2024-07-23 15:01] LABS: Partial Thromboplastin Time 28.9 Seconds (22.3-36.8)
== END 2024-07-23 13:00 | disposition home or self-care (01) ==
LOC: ANHIMG 13:12 → ANHCARD 13:51
PROVIDERS: PCP Family Medicine; Visit Provider Orthopaedic Surgery
DX: Z01.812 Encounter for preprocedural laboratory examination (principal); Z01.810 Encounter for preprocedural cardiovascular examination
CPT/HCPCS: 36415; 80053; 81001; 85027; 85610; 85730; 86850; 86900; 86901; 93005

== ENCOUNTER 2024-08-03 00:07 | Day surgery (SDC) | payer OTHER, SELFPAY ==
[2024-07-26 10:47] VITALS: BMI 30.6
--- NOTE | 2024-07-26 11:02 | PC.NURSE ---
Report to the Outpatient Waiting Room, entrance under the green pavilion located off [facility], at time _08:00am on date ____08/03/24___. Planned Procedure Time: __10:00am .? Time changes happen often and if your time is changed the preop area will call you the afternoon before. - You and your visitor will be asked to self-screen and do not enter if you have any COVID symptoms. Please call surgeon if you need to reschedule. - A mask is optional within the hospital at this time. Patients may have clear liquids (water, carbonated beverages, clear teas, apple juice) until 3 hours prior to surgery with a maximum of 20 ounces. - No food from midnight until time of surgery and no smoking. This includes no chewing gum, candy or mints. (07:00am) Take only the following medications with a SIP of water on the morning of surgery: __Tylenol if needed for pain DO NOT STOP ANY OF YOUR OTHER PRESCRIPTION MEDICATIONS PRIOR TO SURGERY EXCEPT THE FOLLOWING Medications to discontinue per physician Hold Aspirin for [address] Acosta. Date to take last dose 07/26/24 Please no make-up, nail andorran, hairspray, perfume, deodorant, or body powder the day of surgery.? No jewelry (including any body piercings) or valuables the day of surgery, leave them at home.? Please take a shower or bath the night before, or the morning of, surgery with an antibacterial soap.? Wear comfortable, loose fitting clothing.? - Jewelry must be removed prior to entering the operating room.? Rings and piercings that are not removed may be cut off. - The hospital will not accept responsibility for valuables.? - Please leave all valuables, including medications, at home the day of surgery. If you are going home after surgery, a licensed cdl flatbed truck driver must drive you home.? - NO public transportation without another adult if you receive anesthesia. - We recommend that an adult stay with you for 24 hours following discharge. - We also recommend that you do not drive, make important decision, drink alcoholic beverages, or take any drugs that were not prescribed by your health care provider for at least 24 hours after your discharge time. Follow any additional instructions given to you from your surgeon. Telephone instructions given to _Patient and asked if any additional questions and then verbalized understanding. Patient advised to call surgeon office or pre surgery nurse liaison [phone] if any additional questions.
[2024-08-03] VITALS (8 sets, daily range): BP systolic 118–158; BP diastolic 49–86; PULSE 79–99; RESP 16–18; TEMP 36.1–36.2; O2SAT 95–99
[2024-08-03] MEDS: ACETAMINOPHEN 500 MG TABLET 1000 MG PO (06:30)
[2024-08-03] MEDS: LACTATED RINGERS 1,000 ML 30 ML IV CONT (06:35)
[2024-08-03] MEDS: KETOROLAC 15 MG/ML VIAL (*BKC) IV PUSH (06:40)
--- NOTE | 2024-08-03 06:57 | WPDANESEPPF ---
Anes - Initial Pre Proc Eval Procedure: Operation Date: 08/03/24 07:30 Proposed Procedures p Right Knee Arthroscopy, Loose Body Removal - Holden Dueñas MD Date/Time: 08/03/24 06:57 Surgeon: Holden Dueñas MD Pre Op Diagnosis: right knee pain Patient Data Age: 74 Gender: F Height: 1.63 m Weight: 83 kg Last Vital Signs Temp 97.2 F L 08/03/24 06:00 Pulse 95 08/03/24 06:00 Resp 18 08/03/24 06:00 BP 118/49 L 08/03/24 06:00 Pulse Ox 99 08/03/24 06:00 O2 Del Method Room Air 08/03/24 06:00 Allergies Allergy/AdvReac Type Severity Reaction Status Date / Time metronidazole AdvReac Intermediate Vomiting Verified 08/03/24 06:03 Home Medications Medication Instructions Recorded Confirmed Type estradiol 0.01% (0.1 mg/gram) 1 g vaginal WEEKLY 02/17/20 08/03/24 History vaginal cream (Estrace) aspirin 81 mg tablet,delayed 81 mg PO QAM #90 tabs 08/05/23 08/03/24 Rx release metoprolol succinate 25 mg 25 mg PO DAILY #90 tabs 08/05/23 08/03/24 Rx tablet,extended release 24 hr (Toprol XL) esomeprazole magnesium 40 mg 40 mg PO DAILY #30 caps 01/09/24 08/03/24 Rx capsule,delayed release nortriptyline 50 mg capsule 100 mg PO DAILY #180 caps 03/15/24 08/03/24 Rx rosuvastatin 20 mg tablet 20 mg PO DAILY #90 tabs 07/12/24 08/03/24 Rx escitalopram oxalate 10 mg tablet 10 mg PO DAILY #90 tabs 07/14/24 08/03/24 Rx lisinopril 5 mg tablet 5 mg PO DAILY #90 tabs 07/14/24 08/03/24 Rx ergocalciferol (vitamin D2) 1,250 50,000 unit PO WEEKLY 07/26/24 08/03/24 History mcg (50,000 unit) capsule Patient hx anesthesia problems: none Family hx anesthesia problems: none Results Review: All pre-operative results and documents have been reviewed as part of the pre-operative evaluation. 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, single episode, in full remission Nicotine dependence, cigarettes, in remission Surgical History Surgical History Bilateral cataracts 2016 and 2017 H/O cervical spine surgery Discectomy X2 C5-6 and C6-7 1984 H/O colonoscopy H/O removal of neck cyst larynx cyst removal 2014 History of partial mastectomy of left breast 11/06/2020 History of tubal ligation 1985 Hx of lumbar discectomy 06/11/2019 Family History Family History Mother Family history of diabetes mellitus in first degree relative Family history of type 2 diabetes mellitus Family history of chronic obstructive pulmonary disease Hypertension HLD (hyperlipidemia) Father Malignant neoplasm of prostate Hypertension HLD (hyperlipidemia) Social History Social History Smoking packs per day: 1 Smoking cigarettes per day: 20.0 Years smoked: 40 Smoking pack-years: 40.00 Smoking status: Former smoker Tobacco type: cigarettes Second hand tobacco smoke exposure: Yes ( still smokes) Smoking end date: 05/09/20 Alcohol intake: never Substance use: never Substance use type: marijuana Other substance usage details: Gummies occasionally for anxiety prn Do You Feel Safe in your Home?: Yes Lack of Transportation: No Lack of Food: Never True Current Housing: I Have Housing Concerned About Future Housing: No Difficulty Paying Gas/Electric Bills: No Difficulty Paying for Meds: No Currently Unemployed: No Education: Associate Degree Difficulty w/ Childcare or Family Care: No Living arrangements: with family Additional living arrangements comments: trey Occupation/Education: retired Gender identity (if verbalized by the patient): Female Sexual Orientation (if Verbalized by the Patient): Straight or Heterosexual Spiritual care concerns: No Anes - Eval Final PreProcedure Day of Procedure 08/03/24 06:57 Patient weight: obese Heart: regular rate and rhythm Lungs: clear to auscultation Airway: Mallampati scale class II Neurological: alert and oriented Last oral intake: >/= 8 hours ASA classification: IV Emergent: no Anesthetic plan: proceed Anesthesia type and monitoring: general LMA and standard monitoring Results Review: All pre-operative results and documents have been reviewed as part of the pre-operative evaluation. HTN, hyperlipidemia, factor 5 leiden def, CAD s/p STEMI 2022 w occ OM branch, no intervention and only intense med mgt rec. Note from most recent cardiology visit reviewed. Ex smoker quit 2019. Pt w preexisting neuropathy (prev chemotherapy). Informed Consent: The patient's anesthetic plan and its attendant risks and benefits were discussed with the patient/family/POA. Questions were solicited and answers provided to the satisfaction of the patient/family/POA.
--- NOTE | 2024-08-03 07:25 | WPDHPUPDATE1 ---
History and Physical Update Update Date/Time: 08/03/24 07:25 History and Physical has been reviewed, including an updated exam of the patient. There are NO changes in the patient's condition. Risks, benefits, and alternatives have been discussed and questions answered. Patient agrees to proceed with procedure.
--- NOTE | 2024-08-03 07:27 | W.PM.PROC2 ---
Procedure Note - Detailed Date of Procedure 08/03/24 Pre-op Diagnosis Right Knee Pain, Med and Lat Meniscus Tear, Loose Body Post-op Diagnosis Same Procedure Performed Right Knee Arthroscopy with Medial and Lateral Meniscectomy with Loose Body Removal Surgeon Holden Dueñas MD Anesthesia General Indications Right knee pain with mechanical symptoms and failure to clinically improve for more than 2 yrs. Findings Right knee Medial and Lateral Meniscus tear with multiple loose bodies and grade 3 osteoarthritis of the patellofemoral joint at the trochlea and the patella articular surface. Description of Procedure After obtaining consent regarding the risks benefits alternatives and complications, After signing the right knee in the holding area, the patient was then brought to the OR. Patient then underwent general anesthesia. Right Knee and leg were then prepped and draped in the standard sterile fashion in an arthroscopic knee rios. Time out was performed to confirm correct patient, correct surgical procedure, correct site of surgery, anti-biotics administration within 1 hour of incision. Standard 3 arthroscopic portals were made. I first entered into the patellofemoral joint space. Immediately I identified complete loss of cartilage over the trochlea and the patella articular surface. Multiple loose fragments off of the trochlea were removed with a shaver. - multiple loose fragments were also identified in the supra-patellar space. - these fragments were removed with an arthroscopic shaver. I then proceeded to thoroughly evaluate the medial and lateral gutters. There were no additional loose bodies in these areas. I then entered into the medial compartment at which time I identified a posterior horn degenerative medial meniscus tear. I performed a partial medial meniscectomy with an arthroscopic shaver. The intercondylar notch was evaluated and shown to have an intact ACL. Lateral meniscus had a degenerative tear. Partial lateral meniscectomy performed with a shaver. All debri within the intercondylar notch was thoroughly debrided. I then irrigated copiously. The portal sites then closed with monocryl suture. The knee was then injected with lidocaine and Kenalog. The knee was then bandaged in a sterile fashion. The patient was then transferred to the recovery room in stable condition. Estimated Blood Loss 10 Tourniquet Time Total Tourniquet Time: 0 Drains No Packing No Pathology None sent Complications None Condition Stable Disposition PACU
[2024-08-03] MEDS: ceFAZolin 2 GM/D5W 50 ML 2 GM/50 ML BAG IVPB (07:30)
[2024-08-03] MEDS: LIDO 1%/EPINEPHRINE 1:100,000 50 ML VIAL 15 ML INFILTRATE (07:55)
[2024-08-03] MEDS: BUPivacaine HCL 0.25% PF 30 ML VIAL 15 ML INFILTRATE (07:56)
[2024-08-03] MEDS: TRIAMCINOLONE ACET INJ 40 MG/ML VIAL IM (07:57)
[2024-08-03] MEDS: oxyCODONE HCL (*CRX) 5 MG TAB IR PO (09:33)
== END 2024-08-03 10:26 | disposition home or self-care (01) ==
PROVIDERS: PCP Family Medicine; Visit Provider Orthopaedic Surgery
PROC: (CPT 29870; principal; 2024-08-03 07:30)
DX: S83.241A Other tear of medial meniscus, current injury, right knee, initial encounter (principal); S83.281A Other tear of lateral meniscus, current injury, right knee, initial encounter; M17.11 Unilateral primary osteoarthritis, right knee; M23.41 Loose body in knee, right knee; E78.5 Hyperlipidemia, unspecified; I10 Essential (primary) hypertension; I25.10 Atherosclerotic heart disease of native coronary artery without angina pectoris; K59.04 Chronic idiopathic constipation; K21.9 Gastro-esophageal reflux disease without esophagitis; M51.369 Other intervertebral disc degeneration, lumbar region without mention of lumbar back pain or lower extremity pain; G62.0 Drug-induced polyneuropathy; I25.2 Old myocardial infarction; F32.5 Major depressive disorder, single episode, in full remission; F12.90 Cannabis use, unspecified, uncomplicated; E66.9 Obesity, unspecified; Z68.31 Body mass index [BMI] 31.0-31.9, adult; X58.XXXA Exposure to other specified factors, initial encounter; Z79.82 Long term (current) use of aspirin; Z98.890 Other specified postprocedural states; Z98.1 Arthrodesis status; Z98.51 Tubal ligation status; Z87.891 Personal history of nicotine dependence; Z85.3 Personal history of malignant neoplasm of breast; Z80.42 Family history of malignant neoplasm of prostate
CPT/HCPCS: 29880; A9270; J0690; J1100; J1885; J2004; J2405; J2704; J3010; J3301; J7120

== ENCOUNTER 2025-05-08 10:43 | Emergency (ER) | payer OTHER, SELFPAY ==
[2025-05-08] VITALS (7 sets, daily range): BP systolic 151–189; BP diastolic 55–91; PULSE 81–105; RESP 14–30; TEMP 36.7; O2SAT 95–99
--- NOTE | ~2025-05-08 | CT_ITS ---
EXAMINATION: CT brain wo con DATE: 05/08/2025 13:08 INDICATION: Hypertension and dizziness TECHNIQUE: Computed tomography (CT) of the head was performed without intravenous contrast. Sagittal and coronal reconstructions were performed. The mA was adjusted according to patient size. Iterative reconstruction technique was employed. The dose-length product was 605.33 mGy-cm. COMPARISON: Brain MR dated 02/09/2013 FINDINGS: No acute intracranial hemorrhage, acute infarction or abnormal extra axial fluid collection. There is mild scattered white matter hypoattenuation consistent with chronic small vessel ischemic disease. Ventricles are normal and symmetric. No mass/mass effect. Changes of bilateral intraocular lens replacement. The orbits, paranasal sinuses and mastoid air cells are normal. IMPRESSION: 1. Mild scattered white matter hypoattenuation consistent with chronic small vessel ischemic disease. No acute intracranial process. Reviewed, dictated and finalized at location A. IMPRESSION: 1. Mild scattered white matter hypoattenuation consistent with chronic small ve ssel ischemic disease. No acute intracranial process.
--- OUTSIDE RECORDS SUMMARY | 2025-05-08 10:45 | XMS_ITS | Clinical Summary ---
Author Organization [facility] Address [address] [place] [address] Care Team Providers Care Pan Puller Name Role Phone Angelica White MD Primary Care Provider [phone] Source Comments [facility],non-owned Affiliates and Associated Physician Practices is amultiple site organization consisting of ambulatory clinics and hospital sitesin [place], [place] and [place]. This disclosure is being madepursuant to the Care Everywhere program and may not contain all information available regarding this patient. Last updated 18.[facility] Allergies No known active allergies Medications * Be aware that medications may not be up to date on this document. Alwaysverify current medications with the patient. clobetasol (Temovate) 0.05 % cream Apply to affected area as needed Active esomeprazole (NexIUM) 40 MG capsule 3 Active lisinopril (Prinivil; Zestril) 20 MG tablet lisinopril 20 mg tablet TAKE 1 TABLET BY MOUTH EVERY DAY 2 Active nortriptyline (Pamelor) 50 MG capsule Take 2 (two) capsules by mouth once daily 2 Active rosuvastatin (Crestor) 20 MG tablet rosuvastatin 20 mg tablet TAKE 1 TABLET BY MOUTH EVERY DAY Active fexofenadine (Yoly Allergy) 180 MG tablet Take 1 (one) tablet by mouth once daily Active Pseudoephedrin e-Ibuprofen (ADVIL COLD/SINUS PO) Take 1 tablet by mouth as needed Active acetaminophen (Tylenol) 325 MG tablet Take 2 (two) tablets by mouth every 4 hours as needed for Fever or Pain Maximum allowable Acetaminophen amount = 4 Grams (4000 mg) / 24 hours. Active polyethylene glycol 3350 (Miralax) 17 GM/SCOOP powder Take 17 (seventeen) g by mouth once daily Active Family History Medical History Relation Name Comments Cancer - Prostate Father High Blood Pressure Father Diabetes; unknown type Mother High Blood Pressure Mother Relation Name Status Comments Father Mother Social History Tobacco Use Types Packs/Day Years Used Date Smoking Tobacco: Former Cigarettes Q uit: 2019 Smokeless Tobacco: Never Alcohol Use Standard Drinks/Week Comments Never 0 (1 standard drink = 0.6 oz pur e alcohol) Comments No Sex and Gender Information Value Date Recorded Sex Assigned at Not on file 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 Gender Identity Not on file Sexual Orientation Not on file Last Filed Vital Signs Vital Sign Reading Time Taken Comments Blood Pressure 132/85 12/04/2022 11:17 AM CDT Pulse 103 12/04/2022 11:17 AM CDT Temperature 36.8 C (98.2 F) 12/04/2022 11:17 AM CDT Respiratory Rate - - Oxygen Saturation 97% 12/04/2022 11:17 AM CDT Inhaled Oxygen Concentration - - Weight 79.8 kg (176 lb) 12/04/2022 11:17 AM CDT Height 165.1 cm (5' 5) 12/04/2022 11:17 AM CDT Body Mass Index 29.29 12/04/2022 11:17 AM CDT Plan of Treatment Health Maintenance Due Date Last Done Comments BONE DENSITY TESTING 1950 COLOGUARD (AGES 45-75) - COL ON CA SCREENING 1950 CT COLONOGRAPHY - COLON CA SCREENING 1950 FIT - COLON CA SCREENING 1950 FLEX SIG - COLON CA SCREENING 1950 MAMMOGRAM 1950 HEPATITIS C SCREENING 01/15/1969 DTAP/TDAP/TD VACCINES (1 - Tdap) 1970 PNEUMOCOCCAL VACCINE 50+ (1 of 1 - PCV) 2001 ZOSTER VACCINE (1 of 2) 2001 COVID-19 VACCINE (3 - 2023-2 5 season) 2024 12/01/2020, 11/10/2020 DEPRESSION SCREENING 09/08/2024 INFLUENZA VACCINE (#1) 2025 2, 06/15/2021, 07/09/2020 Respiratory Syncytial Virus (RSV) Vaccine Pt: or over 60 yrs (1 - 1-dose 75+ series) 2026 COLON MONITORING 11/29/2030 11/29/2020 COLONOSCOPY - COLON CA SCREENING 11/29/2030 11/29/2020 Colorectal Cancer Screening 11/29/2030 HEPATITIS B VACCINE Aged Out No longe r eligible based on patient's age to complete this topic HIB VACCINE Aged Out No longer eligi ble based on patient's age to complete this topic HPV VACCINE Aged Out No longer eligi ble based on patient's age to complete this topic MENINGOCOCCAL (Group B) VACCINE SHARED DECISION-MAKING Aged Out No longer eligible based on patient's age to complete this topic MENINGOCOCCAL GROUPS A/C/Y/W VACCINE Aged Out No longer eligible b ased on patient's age to complete this topic Insurance [facility] Care Teams Pan Puller Relationship Specialty Start Date End Date Angelica White MD [address] [place] [address] [address] [place] [id number] PCP - General 10/25/22
--- OUTSIDE RECORDS SUMMARY | 2025-05-08 10:45 | XMS_ITS | Clinical Summary ---
Author Organization [facility] Address [address] [place] [address] Care Team Providers Care Herpetologist Name Role Phone El Hawley MD Primary Care Provider [phone] Randi Beyer MD Unavailable [phone] Ike Arroyo MD Unavailable Julissa Cancino MD Unavailable [phone] Nati Wagner MD Unavailable [phone] Allergies No known active allergies Medications rosuvastatin (CRESTOR) 20 mg tabletIndication s:hyperlipidemia Take 1 tablet (20 mg total) by mouth nightly 8 Active clobetasoL (TEMOVATE) 0.05 % creamIndications :Skin Inflammation Apply 1 application topically as needed Active acetaminophen (TYLENOL) 325 mg tablet Take 2 tablets (650 mg total) by mouth every 6 (six) hours as needed for pain [address] (NexIUM) 40 mg capsule 3 Active lisinopriL (PRINIVIL,ZESTRI L) 5 mg tablet Take 1 tablet (5 mg total) by mouth daily 3 Active aspirin 81 mg enteric coated tablet Take 1 tablet (81 mg total) by mouth every morning 3 Active ergocalciferol (VITAMIN D) 50,000 unit capsule Take 1 capsule (50,000 Units total) by mouth 4 Active nortriptyline (PAMELOR) 50 mg capsule TAKE 2 CAPSULES(100 MG) BY MOUTH EVERY NIGHT 60 capsule 5 Active Active Problems Problem Noted Date Diagnosed Date Coronary artery disease invo [place]ving [place] coronary artery of [place] heart without angina pectoris 08/04/2023 Constipation 12/18/2022 Portal hypertension 12/03/2021 Assessment & Plan (12/03/2021 12:02 PM CDT): With CT imaging suggestive of portal hypertension with presence of numerous collateral vessels and evidence of hepatic steatosis. Liver chemistries and plt count within normal range. She does have risk factors for NAFLD with BMI 30, HTN, HLD; steatosis and fibrosis can result in portal hypertension. She has no ascites or no varices noted on prior EGD 07/2020. We discussed that management at this point would focus on weight loss strategies. Exercise has been showed to decrease presence of hepatic fat. We will have her return to clinic in 1 yr time and continue to monitor for development of other signs of portal hypertension. 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, estrogen receptor negative 02/07/2021 Overview (02/07/2021): Added automatically from request for surgery [id number] Encounter for screening colonoscopy 11/24/2020 Overview (11/24/2020): Added automatically from request for surgery [id number] Hypokalemia 09/22/2020 Abdominal pain 08/17/2020 Assessment & Plan (02/27/2022 2:02 PM CDT): Improved since last being seen but still intermittently occurring - Continue mirilax daily - Will add bentyl QID PRN for intermittent abdominal cramps - Continue Nortriptyline Severe malnutrition 07/31/2020 Mucositis due to chemotherapy 07/29/2020 Assessment & Plan (07/30/2020 12:43 PM PROPERTY ASSISTANT): Exacerbated by EGD procedure on 07/29 - Cont magic mouthwash - 7.5mg Oxycodone q5hr prn, Morphine 2mg IV 2nd line Assessment & Plan (07/29/2020 3:28 PM PROPERTY ASSISTANT): Exacerbated by EGD procedure on 07/29 - Cont magic mouthwash - 7.5mg Oxycodone q5hr prn Peptic ulcer disease, colonic ulcers 07/27/2020 Assessment & Plan (07/30/2020 12:43 PM PROPERTY ASSISTANT): Clean based ulcers seen in stomach and transverse colon on EGD/flex sig 07/28. Greatly appreciate GI input Likely from long-term NSAID use (diclofenac) and smoking - Await path biopsy, in particular H. Pylori - PO PPI BID Assessment & Plan (07/29/2020 3:36 PM PROPERTY ASSISTANT): Clean based ulcers seen in stomach and transverse colon on EGD/flex sig 07/28. Greatly appreciate GI input Likely from long-term NSAID use (diclofenac) and smoking - Await path biopsy - PO PPI BID Assessment & Plan (07/28/2020 1:20 PM PROPERTY ASSISTANT): CT a/p suggestive of gastritis and colitis. Started 1 day post chemo. Differential diagnosis includes chemotherapy-induced vs infectious Pain control with p.o. Oxy 1st line, IV morphine second-line Bowel rest with clear liquid diet as tolerated IV fluids until adequate p.o. intake, currently NPO pending covid for possible EGD/flex sig Antibiotics as listed elsewhere Assessment & Plan (07/27/2020 7:12 PM PROPERTY ASSISTANT): CT a/p with gastritis and colitis in setting of immunosuppression. Differential diagnosis includes chemotherapy-induced vs infectious Pain control with p.o. Oxy 1st line, IV morphine second-line Bowel rest with clear liquid diet as tolerated IV fluids until adequate p.o. intake Blood cultures x2 in setting of chills with immunosuppression. Antibiotics as listed elsewhere Colitis 07/27/2020 Assessment & Plan (07/30/2020 12:44 PM PROPERTY ASSISTANT): Also Seen on CT a/p. Likely due to chemotherapy (Gemcitabine), but also treating for infection given neutropenia at the time (ANC 300) - Cdiff, stool cx, CMV, O&P, cryptosporidium and giardia: Pt has yet to have BM - Cipro/Flagyl (07/27 ), transitioned to PO today. Day 4/ treatment Assessment & Plan (07/29/2020 3:33 PM PROPERTY ASSISTANT): Also Seen on CT a/p. Likely due to chemotherapy (Gemcitabine), but also treating for infection given neutropenia at the time (ANC 300) - Cdiff, stool cx, CMV, O&P, cryptosporidium and giardia: Pt has yet to have BM - Cipro/Flagyl (07/27 ), transitioned to PO today. Day 3/ treatment Assessment & Plan (07/28/2020 1:24 PM PROPERTY ASSISTANT): Seen on CT a/p. Likely due to chemotherapy. Should exclude infectious cause due to immunosuppression Cdiff, stool cx, CMV, O&P, cryptosporidium and giardia GI c/s, EGD and flex sig possibly today vs Friday once covid swab returns Assessment & Plan (07/27/2020 7:14 PM PROPERTY ASSISTANT): Seen on CT a/p. Likely due to chemotherapy. Should exclude infectious cause due to immunosuppression Cdiff, stool cx, CMV, O&P, cryptosporidium and giardia Consult GI, may not be able to intervene in setting of neutropenia Gastritis 07/27/2020 Assessment & Plan (07/30/2020 12:43 PM PROPERTY ASSISTANT): Seen on CT abdomen pelvis. Dark tarry stools x5 days, could be upper GI bleed or Right colonic bleed. Most likely due to chemotherapy, however history of diclofenac use, smoking. No alcohol use. Other etiologies include peptic ulcer disease PO pantoprazole b.i.d. GI consult as elsewhere Assessment & Plan (07/29/2020 3:32 PM PROPERTY ASSISTANT): Seen on CT abdomen pelvis. Dark tarry stools x5 days, could be upper GI bleed or Right colonic bleed. Most likely due to chemotherapy, however history of diclofenac use, smoking. No alcohol use. Other etiologies include peptic ulcer disease PO pantoprazole b.i.d. GI consult as elsewhere Assessment & Plan (07/28/2020 1:24 PM PROPERTY ASSISTANT): Seen on CT abdomen pelvis. Dark tarry stools x5 days, could be upper GI bleed or Right colonic bleed. Most likely due to chemotherapy, however history of diclofenac use, smoking. No alcohol use. Other etiologies include peptic ulcer disease IV pantoprazole b.i.d. GI consult as above Assessment & Plan (07/27/2020 7:14 PM PROPERTY ASSISTANT): Seen on CT abdomen pelvis. Dark tarry stools x5 days. Most likely due to chemotherapy, however history of diclofenac use, smoking. No alcohol use. Other etiologies include peptic ulcer disease IV pantoprazole b.i.d. GI consult as above Bicytopenia 07/27/2020 Cancer Staging:Clinical: Unsigned Assessment & Plan (07/30/2020 12:44 PM PROPERTY ASSISTANT): On admit, WBC 1.0, ANC 0.3, platelets 75, s/p 6mg pegfilgrastim post chemo infusion 07/21, improving counts Likely due to chemotherapy Continue to monitor Assessment & Plan (07/29/2020 3:35 PM PROPERTY ASSISTANT): On admit, WBC 1.0, ANC 0.3, platelets 75, s/p 6mg pegfilgrastim post chemo infusion 07/21, improving counts Likely due to chemotherapy Continue to monitor Assessment & Plan (07/28/2020 1:27 PM PROPERTY ASSISTANT): White blood cell count 1.0, absolute neutrophil count 0.3, platelets 75, s/p 6mg pegfilgrastim post chemo infusion 07/21,improving counts Likely due to chemotherapy Continue to monitor Cover for bacterial abdominal infection with IV cefepime and IV metronidazole Consent for blood products signed Neutropenic precautions Blood cultures x2 in setting of persistent chills with immunosuppression. Assessment & Plan (07/27/2020 7:13 PM PROPERTY ASSISTANT): White blood cell count 1.0, absolute neutrophil count 0.3, platelets 75 Likely due to chemotherapy Continue to monitor Cover for bacterial abdominal infection with IV cefepime and IV metronidazole Consent for blood products signed Neutropenic precautions Hepatic fibrosis 07/27/2020 Assessment & Plan (07/30/2020 12:43 PM PROPERTY ASSISTANT): Seen on CT abdomen pelvis, no prior diagnosis. LFTs unremarkable. No long-term alcohol use. No signs of decompensation on exam Hepatitis panel negative. Assessment & Plan (07/29/2020 3:29 PM PROPERTY ASSISTANT): Seen on CT abdomen pelvis, no prior diagnosis. LFTs unremarkable. No long-term alcohol use. No signs of decompensation on exam Hepatitis panel negative. Assessment & Plan (07/28/2020 1:28 PM PROPERTY ASSISTANT): Seen on CT abdomen pelvis, no prior diagnosis. LFTs unremarkable. No long-term alcohol use. Hepatitis panel negative. Assessment & Plan (07/27/2020 7:06 PM PROPERTY ASSISTANT): Seen on CT abdomen pelvis, LFTs unremarkable. No long-term alcohol use. Hepatitis panel Thrush 07/27/2020 Assessment & Plan (07/30/2020 12:42 PM PROPERTY ASSISTANT): Oral candidiasis In the setting of chemotherapy. Resolved w/ Nystatin S+S Assessment & Plan (07/29/2020 3:28 PM PROPERTY ASSISTANT): Oral candidiasis In the setting of chemotherapy. Resolved. Cont Nystatin S+S Assessment & Plan (07/28/2020 1:28 PM PROPERTY ASSISTANT): Oral candidiasis In the setting of chemotherapy Magic mouthwash (concurrent mucositis) Assessment & Plan (07/27/2020 7:07 PM PROPERTY ASSISTANT): In the setting of chemotherapy Nystatin swish and swallow Duodenal nodule 07/27/2020 Assessment & Plan (02/27/2022 2:02 PM CDT): - Continue yearly surveillance - Last CT in 06/2021 with decreased size Assessment & Plan (07/30/2020 12:44 PM PROPERTY ASSISTANT): Seen on CT abdomen and pelvis (07/27): Small enhancing paraduodenal nodule. This does not have the typical appearance of a lymph node and may represent a neuroendocrine tumor - This was not able to be biopsied on 07/28 EGD. Per GI, will re-attempt with EUS on repeat endoscopy 8 weeks from now Assessment & Plan (07/29/2020 3:31 PM PROPERTY ASSISTANT): Seen on CT abdomen and pelvis (07/27): Small enhancing paraduodenal nodule. This does not have the typical appearance of a lymph node and may represent a neuroendocrine tumor - This was not able to be biopsied on 07/28 EGD. Med-onc following, will see if we need to pursue this further Assessment & Plan (07/28/2020 1:29 PM PROPERTY ASSISTANT): Seen on CT abdomen and pelvis. Small enhancing paraduodenal nodule. This does not have the typical appearance of a lymph node and may represent a neuroendocrine tumor. Will t/b GI to see if this can be biopsied during EGD, per med onc rec Assessment & Plan (07/27/2020 7:09 PM PROPERTY ASSISTANT): Seen on CT abdomen and pelvis. Small enhancing paraduodenal nodule. This does not have the typical appearance of a lymph node and may represent a neuroendocrine tumor. Follow-up imaging 3-6 months for surveillance Hypertension, essential 07/27/2020 Assessment & Plan (07/30/2020 12:43 PM PROPERTY ASSISTANT): Normotensive here. Hold home lisinopril in setting of dehydration. Assessment & Plan (07/29/2020 3:29 PM PROPERTY ASSISTANT): Normotensive here. Hold home lisinopril in setting of dehydration. Assessment & Plan (07/28/2020 1:29 PM PROPERTY ASSISTANT): Normotensive here. Hold home lisinopril in setting of dehydration. Assessment & Plan (07/27/2020 7:10 PM PROPERTY ASSISTANT): Normotensive here. Hold home lisinopril in setting of dehydration. Hyperlipidemia, unspecified 07/27/2020 Assessment & Plan (07/30/2020 12:43 PM PROPERTY ASSISTANT): Continue home rosuvastatin Assessment & Plan (07/29/2020 3:29 PM PROPERTY ASSISTANT): Continue home rosuvastatin Assessment & Plan (07/28/2020 1:29 PM PROPERTY ASSISTANT): Continue home rosuvastatin Assessment & Plan (07/27/2020 7:11 PM PROPERTY ASSISTANT): Continue home rosuvastatin Acute hemorrhagic gastritis 07/27/2020 Overview (07/28/2020): Added automatically from request for surgery [id number] Malignant neoplasm of upper- outer quadrant of left breast in female, estrogen receptor negative 07/07/2020 Cancer Staging:Clinical stage from 07/14/2020:Stage IIB(cT2, cN0, cM0, G3, ER-, IN-, HER2-) - Signed by Ike Arroyo MD on 07/14/2020 Assessment & Plan (07/30/2020 12:43 PM PROPERTY ASSISTANT): 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 Arroyo Enrolled in trial for neoadjuvant docetaxel plus carboplatin every 3 weeks for 6 cycles Med onc following Assessment & Plan (07/28/2020 1:24 PM PROPERTY ASSISTANT): 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 Arroyo Enrolled in trial for neoadjuvant docetaxel plus carboplatin every 3 weeks for 6 cycles Medical oncology consult. Assessment & Plan (07/27/2020 6:58 PM PROPERTY ASSISTANT): 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 Arroyo Enrolled in trial for neoadjuvant docetaxel plus carboplatin every 3 weeks for 6 cycles Medical oncology consult. Abnormal mammography 06/22/2020 Breast mass, left 06/22/2020 Lumbar stenosis with neurogenic claudication Cervical disc disease 03/01/2019 Immunizations Immunization Administration Dates Next Due DTaP, Unspecified 09/08/2006 Influenza, Quadrivalent, Tete l Culture-based MDCK, Preservative Free, Antibiotic Free, Intramuscular 06/28/2022,06/15/2021 Influenza, Unspecified 07/09/2020 Pfizer SARS-CoV-2 Monovalent Vaccination (12+ Yrs) PURPLE 12/01/2020,11/10/2020 Pneumococcal Conjugate PCV 13 05/24/2019 Surgical History Surgery Date Site/Laterality Comments HYSTERECTOMY 1990's BREAST BIOPSY 06/29/2020 Left CERVICAL DISC SURGERY 09/08/2015 - 09/07/2016 COLONOSCOPY 09/08/2018 - 09/07/2019 ESOPHAGOGASTRODUODENOSCOPY 07/28/2020, 11/29/2020 MASTECTOMY, PARTIAL 11/06/2020 Left BACK SURGERY 06/11/2019 PORTACATH PLACEMENT 07/13/2020 Medical History Medical History Date Comments Hypertension Arthritis Headaches, cluster Breast cancer (HCC) HLD (hyperlipidemia) History of chemotherapy last bryan atment 09/04/2021 Anemia Thrombocytopenia PUD (peptic ulcer disease) Irritable bowel syndrome Diverticulosis Diverticulitis History of radiation therapy last 12/2020 GERD (gastroesophageal reflux disease) Tinnitus Sore throat Snoring Family History Medical History Relation Name Comments Factor V Leiden Daughter 1 Factor V Leiden Daughter 2 Prostate cancer Father Factor V Leiden Father's Brother Factor V Leiden Mother's Sister Anesthesia problems Neg Hx Relation Name Status Comments Daughter 1 Daughter 2 Father Father's Brother Mother's Sister Social History Tobacco Use Types Packs/Day Years Used Date Smoking Tobacco: Former Cigarettes 1 40 0 05/1980 - 05/2020 Smokeless Tobacco: Never Tobacco Cessation:Counseling Given: Not Answered Alcohol Use Standard Drinks/Week Comments Never 0 (1 standard drink = 0.6 oz pur e alcohol) AUDIT-C Answer Date Recorded Q1: How often do you have a drink containing alc ohol? Monthly or less 12/17/2022 Average Number of Drinks Not on file 023 Frequency of Binge Drinking Not on file 12/07 Comments No Sex and Gender Information Value Date Recorded Sex Assigned at Not on file Legal Sex Female 11:53 AM CDT Gender Identity Not on file Sexual Orientation Straight 06/17/2020 8: 33 AM CDT Obstetrics History Last Filed Vital Signs Vital Sign Reading Time Taken Comments Blood Pressure 133/84 01/19/2025 10:33 AM CDT Pulse 96 01/19/2025 10:33 AM CDT Temperature 36.6 C (97.9 F) 01/19/2025 10:33 AM CDT Respiratory Rate 18 01/19/2025 10:33 AM CDT Oxygen Saturation 96% 01/19/2025 10:33 AM CDT Inhaled Oxygen Concentration - - Weight 82.2 kg (181 lb 4.8 oz) 01/19/2025 10:33 AM CDT Height 162.6 cm (5' 4.02) 01/19/2025 10:33 AM C DT Body Mass Index 31.1 01/19/2025 10:33 AM CDT Plan of Treatment Health Maintenance Due Date Last Done Comments Depression Screening 1950 Osteoporosis Screening-Bone Density Scan 1950 Hepatitis B Screening 1969 Lung Cancer Screening 2001 Zoster Vaccine (1 of 2) 2001 Well Visit 65+ 01/21/2016 DTaP/Tdap/Td Vaccine (2 - Tdap) 09/08/2016 7 Pneumococcal vaccine 65+ (2 of 2 - PPSV23, PCV20, or PCV21) 07/19/2019 05/24/2019 Fall Risk Assessment 02/26/2022 02/26/2021 Covid-19 Vaccine (2023-2 5 season) 2024 07/09/2022, 07/10/2021, 12/01/2020, Additional history exists Influenza Vaccine (#1) 2025 2, 06/15/2021, 07/09/2020 Breast Cancer Screening-Mammogram 11/08/2025 11/08/2024, 11/10/2023, 06/10/2023, Additional history exists Colon Cancer Screening-Colonoscopy 11/29/20302020 Hepatitis C Screening Completed 12/07/2020 , 07/27/2020, 07/27/2020 Abdominal Aortic Aneurysm (A AA) Screen Completed 06/19/2022, 06/29/2021, 08/17/2020, Additional history exists Medical Devices Implanted Type Area Buckle Inspector Device Identifier Shelf Expiration Date Model / Serial / Lot [employer] [id number] Magseed 18ga 7cm Marker Breast Biopsy - [id number] Implanted:Qty : 1 on 10/30/[address] [facility] Left: Breast [employer] [id number] 03/07/2024 [id number] Explanted Type Area Buckle Inspector Device Identifier Shelf Expiration Date Model / Serial / Lot [employer] [id number] Powerport Airguard 8fr 1 Lumen Attachable Catheter Intermediate Latex Free - [id number] Implanted:Qty: 1 on 07/13/2020 by Julissa Cancino MD at [facility] Explanted:Qty: 1 on 02/26/[address] [facility] Right: Chest [employer] 12/06/2021 [id number] / / [id number] Procedures Procedure Name Priority Date/Time Associated Diagnosis Comments SCREENING MAMMOGRAM BILATERAL W CHANDLER Schedule Routine, Read Routine (OP Routine) 11/08/2024 9:53 AM PROPERTY ASSISTANT Malignant neoplasm of upper-outer quadrant of left breast in female, estrogen receptor negative (HCC) Encounter for screening mammogram for malignant neoplasm of breast CT ABDOMEN PELVIS W CONTRAST Schedule Routine, Read Routine (OP Routine) 06/19/2022 11:42 AM CDT Abdominal pain HEPATITIS C ANTIBODY Routine 12/07/2020 2:10 PM CDT Malignant neoplasm of upper-outer quadrant of left breast in female, estrogen receptor negative (HCC) COLONOSCOPY 11/29/2020 10:45 AM CDT from Last 3 Months or Most Recently Relevant to Health Maintenance Results * Screening Mammogram Bilateral W Chandler (11/08/2024 9:53 AM PROPERTY ASSISTANT) Anatomical Region Laterality Modality Breast Bilateral Mammography Narrative 11/08/2024 3:14 PM PROPERTY ASSISTANT Mammogram Technique: Bilateral Digital Breast Tomosynthesis, Bilateral C-view 2D Screening mammogram. Views obtained: bilateral craniocaudal and bilateral mediolateral oblique. Computer Aided Detection was performed. Mammogram Findings: The present examination has been compared to prior imaging studies performed at [facility] on 05/22/2021, 05/28/2022 and 06/10/2023. The breasts are heterogeneously dense, which may obscure small masses. There are post breast conservation therapy changes in the left breast. There is no suspicious abnormality in either breast. Impression: There is no mammographic evidence of malignancy. Annual screening mammography is recommended. If supplemental screening is desired, breast MRI would be recommended in this patient with heterogeneously dense breasts. OVERALL FINAL ASSESSMENT: BI-RADS CATEGORY 2: Benign. Procedure Note Lisa Buchanan MD - 11/08/2024 Mammogram Technique: Bilateral Digital Breast Tomosynthesis, Bilateral C-view 2D Screening mammogram. Views obtained: bilateral craniocaudal and bilateral mediolateral oblique. Computer Aided Detection was performed. Mammogram Findings: The present examination has been compared to prior imaging studies performed at [facility] on 05/22/2021, 05/28/2022 and 06/10/2023. The breasts are heterogeneously dense, which may obscure small masses. There are post breast conservation therapy changes in the left breast. There is no suspicious abnormality in either breast. Impression: There is no mammographic evidence of malignancy. Annual screening mammography is recommended. If supplemental screeningis desired, breast MRI would be recommended in this patient with heterogeneously dense breasts. OVERALL FINAL ASSESSMENT: BI-RADS CATEGORY 2: Benign. Julissa Cancino MD IMG MAMMO PROCEDURES Fi nal Result * CT Abdomen Pelvis W Contrast (06/19/2022 11:42 AM CDT) Anatomical Region Laterality Modality Body N/A Computed Tomogra phy 06/19/2022 11:5 9 AM CDT Impressions 06/19/2022 11:59 AM CDT No explanation for abdominal pain Electronically signed by: Justin Peterson M.D. [facility] 06/19/2022 11:59 AM CDT EXAMINATION: Computed tomography of the abdomen and pelvis with intravenous contrast HISTORY: Left upper quadrant abdominal pain. Patient has a history of breast cancer and duodenal nodule. TECHNIQUE: Transaxial computed tomographic images of the abdomen and pelvis were obtained with intravenous contrast according to the standard protocol after the uneventful administration of 100 mL Opti-Ray 350 intravenous contrast. COMPARISON: Computed tomography examination abdomen pelvis 06/29/2021 FINDINGS: The lung bases are clear. The heart size is normal. The liver, gallbladder, spleen, pancreas, both adrenal glands, and both kidneys appear normal. The bowel gas pattern is normal. There is no abdominal or pelvic lymphadenopathy. There is colonic diverticulosis. The uterus and adnexa are absent. Urinary bladder appears normal. There is no free pelvic fluid. Images obtained with bone window settings demonstrate no suspicious osseous abnormality. Procedure Note Justin Peterson MD - 06/19/2022 EXAMINATION: Computed tomography of the abdomen and pelvis with intravenous contrast HISTORY: Left upper quadrant abdominal pain. Patient has a history of breast cancer and duodenal nodule. TECHNIQUE: Transaxial computed tomographic images of the abdomen and pelvis were obtained with intravenous contrast according to the standard protocol after the uneventful administration of 100 mL Opti-Ray 350 intravenous contrast. COMPARISON: Computed tomography examination abdomen pelvis 06/29/2021 FINDINGS: The lung bases are clear. The heart size is normal. The liver, gallbladder, spleen, pancreas, both adrenal glands, and both kidneys appear normal. The bowel gas pattern is normal. There is no abdominal or pelvic lymphadenopathy. There is colonic diverticulosis. The uterus and adnexa are absent. Urinary bladder appears normal. There is no free pelvic fluid. Images obtained with bone window settings demonstrate no suspicious osseous abnormality. IMPRESSION: No explanation for abdominal pain Electronically signed by: Justin P. Nelson, M.D. us Ted Dunlap MD IMG CT PROCEDURES Final Re sult * Hepatitis C antibody (12/07/2020 2:10 PM CDT) Hep C Ab Nonreactive Nonreactive MILAN EDWARDS Comment:Antibodies to HCV no t detected. Does NOT exclude the possibility of recent exposure to HCV. Blood specimen (specimen) 12/07/2020 2:10 PM CDT 12/07/2020 2:20 PM CDT us Ike Arroyo MD LAB MICRO BIOLOGY - GENERAL ORDERABLES Edited Result - [facility] Department of [place] [address] * COLONOSCOPY (11/29/2020 10:45 AM CDT) Anatomical Region Laterality Modality Other Narrative Procedure Note Ted Dunlap MD - 11/29/2020 10:45 AM CDT ENDOSCOPY LAB Patient Name: Ashley Adams Procedure Date: 11/29/2020 10:45 AM Admit Type: Outpatient Room: [facility] 4 Date of : 1950 Instrument Name: [id number] Gender: Female Note Status: Finalized Procedure: Colonoscopy Indications: Follow-up of diverticulitis Providers: Ted Dunlap M.D. Referring MD: El Hawley M.D., Julissa Cancino M.D. Medicines: Monitored Anesthesia Care Complications: No immediate complications. Estimated Blood Loss: Estimated blood loss: none. Procedure: Pre-Anesthesia Assessment: - The risks and benefits of the procedure and the sedation options and risks were discussed with the patient. All questions were answered and informed consent was obtained. - Immediately prior to administration ofmedications, the patient was re-assessed for adequacy to receive sedatives. The benefits, risks and alternatives of theprocedure and sedation were discussed and informed consentwas obtained. All questions were answered. Please referto the signed informed consent document in the medical record. The scope was passed under direct vision.The Colonoscope was introduced through the anus and advanced to the cecum, identified by appendiceal orifice and ileocecal valve. The colonoscopy was performed without difficulty. The patient tolerated the procedure well. The quality of the bowel preparation was good. The bowel preparation usedwas SUPREP. Findings: The perianal and digital rectal examinations were normal. Multiple small-mouthed diverticula were found in the sigmoid colon. Non-bleeding internal hemorrhoids were found during retroflexion. The hemorrhoids were medium-sized. The exam was otherwise without abnormality on direct and retroflexion views. Impression: - Diverticulosis in the sigmoid colon. - Non-bleeding internal hemorrhoids. - The examination was otherwise normal on directand retroflexion views. Recommendation: - Repeat colonoscopy in 10 years for screening purposes. - Return to referring physician as previously scheduled. Attending Participation: I personally performed the entire procedure. Electronically signed by Ted Dunlap M.D. Ted Dunlap M.D. 11/29/2020 2:12:37 PM This document was signed electronically. Number of Addenda: 0 Note Initiated On: 11/29/2020 10:45 AM Scope In: Scope Out: Ted Dunlap MD ENDOSCOPY PROCEDURES Final Result from Last 3 Months or Most Recently Relevant to Health Maintenance Insurance [facility] CHOICE PLUS MEDICARE [facility] Address: [address] [address] [place] [address] [facility] OPEN ACCESS [employer] MEDICARE [facility] Advance Directives For more information, please contact: [phone] Documents on File Type Date Recorded Patient Assistant Professor Of Dietetics Expl anation ADVANCE DIRECTIVE 07/13/2020 9:07 AM * Full Code (Latest Code Status on File) Date Activated Date Inactivated Comments 11/29/2020 1:00 PM 11/29/2020 6:59 PM * Full Code Date Activated Date Inactivated Comments 08/17/2020 3:53 PM 08/19/2020 9:00 PM * LIMITED - No CPR Date Activated Date Inactivated Comments 07/27/2020 6:04 PM 08/01/2020 7:01 PM Question Answer Comments Provide aggressive medical m anagement before a full cardiopulmonary arrest occurs. Use antibiotics, IV Fluids, and medical treatment unless specifically selected below: No intubation Discussed with the following attending physician : Nelson Raymundo * Full Code Date Activated Date Inactivated Comments 07/27/2020 5:13 PM 07/27/2020 6:04 PM Care Teams Herpetologist Relationship Specialty Start Date End Date El Hawley MD [address] [place] [address] PCP - General 11/21/20 Randi Beyer MD [address] [facility] [address] [place] [address] Referring Physician Gynecology 07/05/20 Ike Arroyo MD [address] [place] [address] Medical Oncologist Medical Oncology 09/20/20 Julissa Cancino MD [address] [address] Surgeon Surgical Oncology 02/19/21 Nati Wagner MD [address] [address] Radiation Oncologist Radiation Oncology 05/05/24
--- OUTSIDE RECORDS SUMMARY | 2025-05-08 10:46 | XMS_ITS ---
Author Organization [facility] Address [address] [place] [address] Care Team Providers Care Rehabilitation Aide Name Role Phone El Hawley MD Primary Care Provider [phone] Randi Beyer MD Unavailable [phone] Ike Arroyo MD Unavailable Julissa Cancino MD Unavailable Nati Wagner MD Unavailable [phone] Active Problems Problem Noted Date Diagnosed Date Coronary artery disease invo lving pechanga coronary artery of pechanga heart without angina pectoris 08/04/2023 Constipation 12/18/2022 [...] (02/07/2021): Added automatically from request for surgery [id number] Encounter for screening colonoscopy 11/24/2020 Overview (11/24/2020): Added automatically from request for surgery [id number] Hypokalemia 09/22/2020 Abdominal pain 08/17/2020 Assessment & Plan (02/27/2022 2:02 PM CDT): Improved since last being seen but still intermittently occurring - Continue mirilax daily - Will add bentyl QID PRN for intermittent abdominal cramps - Continue Nortriptyline Severe malnutrition 07/31/2020 Mucositis due to chemotherapy 07/29/2020 Assessment & Plan (07/30/2020 12:43 PM WEALTH MANAGEMENT DIRECTOR): Exacerbated by EGD procedure on 07/29 - Cont magic mouthwash - 7.5mg Oxycodone q5hr prn, Morphine 2mg IV 2nd line Assessment & Plan (07/29/2020 3:28 PM WEALTH MANAGEMENT DIRECTOR): Exacerbated by EGD procedure on 07/29 - Cont magic mouthwash - 7.5mg Oxycodone q5hr prn Peptic ulcer disease, colonic ulcers 07/27/2020 Assessment & Plan (07/30/2020 12:43 PM WEALTH MANAGEMENT DIRECTOR): Clean based ulcers seen in stomach and transverse colon on EGD/flex sig 07/28. Greatly appreciate GI input Likely from long-term NSAID use (diclofenac) and smoking - Await path biopsy, in particular H. Pylori - PO PPI BID Assessment & Plan (07/29/2020 3:36 PM WEALTH MANAGEMENT DIRECTOR): Clean based ulcers seen in stomach and transverse colon on EGD/flex sig 07/28. Greatly appreciate GI input Likely from long-term NSAID use (diclofenac) and smoking - Await path biopsy - PO PPI BID Assessment & Plan (07/28/2020 1:20 PM WEALTH MANAGEMENT DIRECTOR): CT a/p suggestive of gastritis and colitis. Started 1 day post chemo. Differential diagnosis includes chemotherapy-induced vs infectious Pain control with p.o. Oxy 1st line, IV morphine second-line Bowel rest with clear liquid diet as tolerated IV fluids until adequate p.o. intake, currently NPO pending covid for possible EGD/flex sig Antibiotics as listed elsewhere Assessment & Plan (07/27/2020 7:12 PM WEALTH MANAGEMENT DIRECTOR): CT a/p with gastritis and colitis in setting of immunosuppression. Differential diagnosis includes chemotherapy-induced vs infectious Pain control with p.o. Oxy 1st line, IV morphine second-line Bowel rest with clear liquid diet as tolerated IV fluids until adequate p.o. intake Blood cultures x2 in setting of chills with immunosuppression. Antibiotics as listed elsewhere Colitis 07/27/2020 Assessment & Plan (07/30/2020 12:44 PM WEALTH MANAGEMENT DIRECTOR): Also Seen on CT a/p. Likely due to chemotherapy (Gemcitabine), but also treating for infection given neutropenia at the time (ANC 300) - Cdiff, stool cx, CMV, O&P, cryptosporidium and giardia: Pt has yet to have BM - Cipro/Flagyl (07/27 - ), transitioned to PO today. Day 4/7 treatment Assessment & Plan (07/29/2020 3:33 PM WEALTH MANAGEMENT DIRECTOR): Also Seen on CT a/p. Likely due to chemotherapy (Gemcitabine), but also treating for infection given neutropenia at the time (ANC 300) - Cdiff, stool cx, CMV, O&P, cryptosporidium and giardia: Pt has yet to have BM - Cipro/Flagyl (07/27 - ), transitioned to PO today. Day 3/7 treatment Assessment & Plan (07/28/2020 1:24 PM WEALTH MANAGEMENT DIRECTOR): Seen on CT a/p. Likely due to chemotherapy. Should exclude infectious cause due to immunosuppression Cdiff, stool cx, CMV, O&P, cryptosporidium and giardia GI c/s, EGD and flex sig possibly today vs Friday once covid swab returns Assessment & Plan (07/27/2020 7:14 PM WEALTH MANAGEMENT DIRECTOR): Seen on CT a/p. Likely due to chemotherapy. Should exclude infectious cause due to immunosuppression Cdiff, stool cx, CMV, O&P, cryptosporidium and giardia Consult GI, may not be able to intervene in setting of neutropenia Gastritis 07/27/2020 Assessment & Plan (07/30/2020 12:43 PM WEALTH MANAGEMENT DIRECTOR): Seen on CT abdomen pelvis. Dark tarry stools x5 days, could be upper GI bleed or Right colonic bleed. Most likely due to chemotherapy, however history of diclofenac use, smoking. No alcohol use. Other etiologies include peptic ulcer disease PO pantoprazole b.i.d. GI consult as elsewhere Assessment & Plan (07/29/2020 3:32 PM WEALTH MANAGEMENT DIRECTOR): Seen on CT abdomen pelvis. Dark tarry stools x5 days, could be upper GI bleed or Right colonic bleed. Most likely due to chemotherapy, however history of diclofenac use, smoking. No alcohol use. Other etiologies include peptic ulcer disease PO pantoprazole b.i.d. GI consult as elsewhere Assessment & Plan (07/28/2020 1:24 PM WEALTH MANAGEMENT DIRECTOR): Seen on CT abdomen pelvis. Dark tarry stools x5 days, could be upper GI bleed or Right colonic bleed. Most likely due to chemotherapy, however history of diclofenac use, smoking. No alcohol use. Other etiologies include peptic ulcer disease IV pantoprazole b.i.d. GI consult as above Assessment & Plan (07/27/2020 7:14 PM WEALTH MANAGEMENT DIRECTOR): Seen on CT abdomen pelvis. Dark tarry stools x5 days. Most likely due to chemotherapy, however history of diclofenac use, smoking. No alcohol use. Other etiologies include peptic ulcer disease IV pantoprazole b.i.d. GI consult as above Bicytopenia 07/27/2020 Cancer Staging:Clinical: Unsigned Assessment & Plan (07/30/2020 12:44 PM WEALTH MANAGEMENT DIRECTOR): On admit, WBC 1.0, ANC 0.3, platelets 75, s/p 6mg pegfilgrastim post chemo infusion 07/21, improving counts Likely due to chemotherapy Continue to monitor Assessment & Plan (07/29/2020 3:35 PM WEALTH MANAGEMENT DIRECTOR): On admit, WBC 1.0, ANC 0.3, platelets 75, s/p 6mg pegfilgrastim post chemo infusion 07/21, improving counts Likely due to chemotherapy Continue to monitor Assessment & Plan (07/28/2020 1:27 PM WEALTH MANAGEMENT DIRECTOR): White blood cell count 1.0, absolute neutrophil count 0.3, platelets 75, s/p 6mg pegfilgrastim post chemo infusion 07/21,improving counts Likely due to chemotherapy Continue to monitor Cover for bacterial abdominal infection with IV cefepime and IV metronidazole Consent for blood products signed Neutropenic precautions Blood cultures x2 in setting of persistent chills with immunosuppression. Assessment & Plan (07/27/2020 7:13 PM WEALTH MANAGEMENT DIRECTOR): White blood cell count 1.0, absolute neutrophil count 0.3, platelets 75 Likely due to chemotherapy Continue to monitor Cover for bacterial abdominal infection with IV cefepime and IV metronidazole Consent for blood products signed Neutropenic precautions Hepatic fibrosis 07/27/2020 Assessment & Plan (07/30/2020 12:43 PM WEALTH MANAGEMENT DIRECTOR): Seen on CT abdomen pelvis, no prior diagnosis. LFTs unremarkable. No long-term alcohol use. No signs of decompensation on exam Hepatitis panel negative. Assessment & Plan (07/29/2020 3:29 PM WEALTH MANAGEMENT DIRECTOR): Seen on CT abdomen pelvis, no prior diagnosis. LFTs unremarkable. No long-term alcohol use. No signs of decompensation on exam Hepatitis panel negative. Assessment & Plan (07/28/2020 1:28 PM WEALTH MANAGEMENT DIRECTOR): Seen on CT abdomen pelvis, no prior diagnosis. LFTs unremarkable. No long-term alcohol use. Hepatitis panel negative. Assessment & Plan (07/27/2020 7:06 PM WEALTH MANAGEMENT DIRECTOR): Seen on CT abdomen pelvis, LFTs unremarkable. No long-term alcohol use. Hepatitis panel Thrush 07/27/2020 Assessment & Plan (07/30/2020 12:42 PM WEALTH MANAGEMENT DIRECTOR): Oral candidiasis In the setting of chemotherapy. Resolved w/ Nystatin S+S Assessment & Plan (07/29/2020 3:28 PM WEALTH MANAGEMENT DIRECTOR): Oral candidiasis In the setting of chemotherapy. Resolved. Cont Nystatin S+S Assessment & Plan (07/28/2020 1:28 PM WEALTH MANAGEMENT DIRECTOR): Oral candidiasis In the setting of chemotherapy Magic mouthwash (concurrent mucositis) Assessment & Plan (07/27/2020 7:07 PM WEALTH MANAGEMENT DIRECTOR): In the setting of chemotherapy Nystatin swish and swallow Duodenal nodule 07/27/2020 Assessment & Plan (02/27/2022 2:02 PM CDT): - Continue yearly surveillance - Last CT in 06/2021 with decreased size Assessment & Plan (07/30/2020 12:44 PM WEALTH MANAGEMENT DIRECTOR): Seen on CT abdomen and pelvis (07/27): Small enhancing paraduodenal nodule. This does not have the typical appearance of a lymph node and may represent a neuroendocrine tumor - This was not able to be biopsied on 07/28 EGD. Per GI, will re-attempt with EUS on repeat endoscopy 8 weeks from now Assessment & Plan (07/29/2020 3:31 PM WEALTH MANAGEMENT DIRECTOR): Seen on CT abdomen and pelvis (07/27): Small enhancing paraduodenal nodule. This does not have the typical appearance of a lymph node and may represent a neuroendocrine tumor - This was not able to be biopsied on 07/28 EGD. Med-onc following, will see if we need to pursue this further Assessment & Plan (07/28/2020 1:29 PM WEALTH MANAGEMENT DIRECTOR): Seen on CT abdomen and pelvis. Small enhancing paraduodenal nodule. This does not have the typical appearance of a lymph node and may represent a neuroendocrine tumor. Will t/b GI to see if this can be biopsied during EGD, per med onc rec Assessment & Plan (07/27/2020 7:09 PM WEALTH MANAGEMENT DIRECTOR): Seen on CT abdomen and pelvis. Small enhancing paraduodenal nodule. This does not have the typical appearance of a lymph node and may represent a neuroendocrine tumor. Follow-up imaging 3-6 months for surveillance Hypertension, essential 07/27/2020 Assessment & Plan (07/30/2020 12:43 PM WEALTH MANAGEMENT DIRECTOR): Normotensive here. Hold home lisinopril in setting of dehydration. Assessment & Plan (07/29/2020 3:29 PM WEALTH MANAGEMENT DIRECTOR): Normotensive here. Hold home lisinopril in setting of dehydration. Assessment & Plan (07/28/2020 1:29 PM WEALTH MANAGEMENT DIRECTOR): Normotensive here. Hold home lisinopril in setting of dehydration. Assessment & Plan (07/27/2020 7:10 PM WEALTH MANAGEMENT DIRECTOR): Normotensive here. Hold home lisinopril in setting of dehydration. Hyperlipidemia, unspecified 07/27/2020 Assessment & Plan (07/30/2020 12:43 PM WEALTH MANAGEMENT DIRECTOR): Continue home rosuvastatin Assessment & Plan (07/29/2020 3:29 PM WEALTH MANAGEMENT DIRECTOR): Continue home rosuvastatin Assessment & Plan (07/28/2020 1:29 PM WEALTH MANAGEMENT DIRECTOR): Continue home rosuvastatin Assessment & Plan (07/27/2020 7:11 PM WEALTH MANAGEMENT DIRECTOR): Continue home rosuvastatin Acute hemorrhagic gastritis 07/27/2020 Overview (07/28/2020): Added automatically from request for surgery [id number] Malignant neoplasm of upper- outer quadrant of left breast in female, estrogen receptor negative 07/07/2020 Cancer Staging:Clinical stage from 07/14/2020:Stage IIB(cT2, cN0, cM0, G3, ER-, FL-, HER2-) - Signed by Ike Arroyo MD on 07/14/2020 Assessment & Plan (07/30/2020 12:43 PM WEALTH MANAGEMENT DIRECTOR): 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 Arroyo Enrolled in trial for neoadjuvant docetaxel plus carboplatin every 3 weeks for 6 cycles Med onc following Assessment & Plan (07/29/2020 3:28 PM WEALTH MANAGEMENT DIRECTOR): 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 Arroyo Enrolled in trial for neoadjuvant docetaxel plus carboplatin every 3 weeks for 6 cycles Med onc following Assessment & Plan (07/28/2020 1:24 PM WEALTH MANAGEMENT DIRECTOR): 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 Arroyo Enrolled in trial for neoadjuvant docetaxel plus carboplatin every 3 weeks for 6 cycles Medical oncology consult. Assessment & Plan (07/27/2020 6:58 PM WEALTH MANAGEMENT DIRECTOR): 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 Arroyo Enrolled in trial for neoadjuvant docetaxel plus carboplatin every 3 weeks for 6 cycles Medical oncology consult. Abnormal mammography 06/22/2020 Breast mass, left 06/22/2020 Lumbar stenosis with neurogenic claudication Cervical disc disease 03/01/2019 Current Treatment and Therapy Plans No current plan information found. Past Treatment and Therapy Plans Line Care Plan Name Start Date Discontinue Date Treatment Medications Discontinue Reason Plan Provider IV Maintenance Therapy Plan & IV Maintenance Therapy Plan 04/05/2022 06/18/2022 No medications scheduled. Therapy Complete Ike Arroyo MD Oncology Chemotherapy Treatment Plan Name Start Date Discontinue Date Treatment Medications Discontinue Reason Plan Provider Cycles [id number] - [facility] - Phase 1 - Neoantigen DNA Vaccine + Durvalumab 11/09/2021 04/26/2022 INV-[facility] (/D [id number]) durvalumab ([id number]) IVPB in 250 mL[facility] neoantigen DNA vaccine () Patient Preference Ike Arroyo MD 6 of 7 cycles started Capecitabine PO 21 Day Cycles - Breast 03/23/2021 capecitabine (XELODA) Provider Discretion Ike Arroyo MD Treatment not started [id number] - [facility] - Breast - Co-clinical Trial: Carboplatin and Docetaxel 07/21/2001/09/2021 CARBOplatin (PARAPLATIN)CA RBOplatin (PARAPLATIN) IVPB in 250 mLDOCEtaxel (TAXOTERE)DOCE taxel (TAXOTERE) IVPB in 250 mL (vial 20mg/mL) Therapy Complete Ike Arroyo MD 3 of 6 cycles completed Oncology Supportive Care Therapy Plan Plan Name Start Date Discontinue Date Treatment Medications Discontinue Reason Plan Provider Hydration Therapy Plan 07/25/2020 09/22/2020 No medications scheduled. Therapy Complete Ike Arroyo MD Specialty Infusion Treatment Plan Name Start Date Discontinue Date Treatment Medications Discontinue Reason Plan Provider Electrolyte Replacement 09/22/2020 04/26/2022 No medications scheduled. Therapy Complete Ike Arroyo MD Radiation Treatments * Course C1 L BREAST 202012/13/2020 - 01/09/2021 Treatment Period Energy Fraction Dose Fractions Total Dose Plans Planned L BRS BST 01/03/2021 - 01/09/2021 250 5 / 1,250 L BREAST 12/13/2020 - 01/02/2021 267 15 / 4,005 Reference Points Delivered bst dpv 01/03/2021 - 01/09/2021 1,250 FINN DPV 12/13/2020 - 01/02/2021 4,005 Lifetime Dose Tracking * Chemical Lifetime Dose Automatic Entry Manual Entr y Fluoro Time 0.1 minutes 0.1 minutes 0 minutes Air kerma at the reference point (Ka,r) 2 mGy 2 mGy 0 mGy DLP 2,697 mGycm 2,697 mGycm 0 mGycm
--- OUTSIDE RECORDS SUMMARY | 2025-05-08 10:46 | XMS_ITS | Clinical Summary ---
Author Organization [facility] [id number] [facility] Address [address] [place] [address] Care Team Providers Care Zipper Ironer Name Role Phone El Hawley MD Primary Care Provider Allergies No known active allergies Medications diclofenac sodium (VOLTAREN) 75 mg Tablet, Delayed Release (E.C.) Take 75 mg by mouth 2 times daily. Active diphenhydrAMINE (UNISOM SLEEPGELS) 50 mg capsule Take 50 mg by mouth daily at bedtime. Active linaCLOtide (LINZESS) 145 mcg capsule Take 145 mcg by mouth 1 time daily as needed (constipation ). Active ergocalciferol (VITAMIN D2) 50,000 unit capsule Take 50,000 Units by mouth every 7 days. friday Active rosuvastatin (CRESTOR) 20 mg tablet Take 20 mg by mouth daily with supper. Active lisinopril (PRINIVIL) 10 mg tablet Take 10 mg by mouth daily with supper. Active HYDROcodone-aceta minophen (NORCO) 5-325 mg tabletIndications :Lumbar stenosis with neurogenic claudication Take 1-2 Tablets by mouth every 4 hours as needed for moderate pain. Max Daily Amount: 12 Tablets 45 Tablet 06/11/2019 11:01 AM CDT 9 Active docusate sodium (COLACE) 50 mg capsule Take 1 Capsule (50 mg) by mouth 2 times daily. 20 Capsule 1 9 Active gabapentin (NEURONTIN) 100 mg capsule Take 1 Capsule (100 mg) by mouth 3 times daily. 90 Capsule 9 Active carisoprodol (SOMA) 350 mg tabletIndications :Lumbar stenosis with neurogenic claudication Take 1 Tablet (350 mg) by mouth 4 times daily as needed for Spasm. 30 Tablet 9 Active Active Problems Problem Noted Date Diagnosed Date Lumbar stenosis with neurogenic claudication Cervical disc disease 03/01/2019 Family History Medical History Relation Name Comments Other Father COPD Mother Diabetes Mother Relation Name Status Comments Father Alive Mother Social History Tobacco Use Types Packs/Day Years Used Date Smoking Tobacco: Every Day Cigarettes Smokeless Tobacco: Never Tobacco Cessation:Counseling Given: Yes Alcohol Use Standard Drinks/Week Comments Never 0 (1 standard drink = 0.6 oz pur e alcohol) Comments No Sex and Gender Information Value Date Recorded Sex Assigned at Not on file Legal Sex Female 10:23 PM CDT Gender Identity Not on file Sexual Orientation Not on file Last Filed Vital Signs Vital Sign Reading Time Taken Comments Blood Pressure 116/58 06/11/2019 11:18 AM CDT Pulse 81 06/11/2019 11:18 AM CDT Temperature 36.3 C (97.3 F) 06/11/2019 10:32 AM CDT Respiratory Rate 16 06/11/2019 10:32 AM CDT Oxygen Saturation 99% 06/11/2019 11:18 AM CDT Inhaled Oxygen Concentration - - Weight 77.1 kg (170 lb) 08/24/2019 1:09 PM HARDWARE DESIGN ENGINEER Height 162.6 cm (5' 4) 08/24/2019 1:09 PM HARDWARE DESIGN ENGINEER Body Mass Index 29.18 08/24/2019 1:09 PM HARDWARE DESIGN ENGINEER Plan of Treatment Health Maintenance Due Date Last Done Comments DTAP/TDAP/TD VACCINES (1 - Tdap) 1970 PNEUMOCOCCAL VACCINE 50+ YEARS (1 of 2 - PCV) 01/20/19 70 BREAST CANCER SCREENING 1991 COLORECTAL SCREENING 01/21/1996 Colorectal Cancer Screening 01/21/1996 FIT-DNA Q 3 years 01/21/1996 FIT/FOBT Q 1 year 01/21/1996 Flex Sig/CT Colonography Q 5 years 01/21/1996 ZOSTER VACCINE (1 of 2) 2001 OSTEOPOROSIS SCREENING 01/21/2016 INFLUENZA VACCINE (#1) 2025 RSV VACCINE (60+ or ) (1 - 1-dose 75+ series) 2026 Medical Devices Explanted Type Area Industrial Electrician Journeyman Device Identifier Shelf Expiration Date Model / Serial / Lot Hemostatic Surgiflo 8ml W/Thrombin 2994 - Sna Explanted:Qty: 1 on 06/11/2019 by Luis Manuel Sarmiento MD at [facility] Hemostatic N/A: Spine Lumbar [employer] 05/08/2020 2994 / NA / [id number] Hemostatic Surgifoam Sz12-7 1971 - Sna Explanted:Qty: 1 on 06/11/2019 by Luis Manuel Sarmiento MD at [facility] Hemostatic N/A: Spine Lumbar [employer]- [employer] 04/20/2023 1972 / NA / [id number] Insurance RX [employer] RX Member Subscriber Plan / Payer (Ef fective 2019-Present) Name:Zbigniew Adams Relation to Subscriber:Not on file Name:Zbigniew Adams Subscriber ID:Not on file Payer ID:Not on file Group ID:[id number] Type:RX Commercial Address: [address] Advance Directives For more information, please contact: [phone] * Full Code (Latest Code Status on File) Date Activated Date Inactivated Comments 06/11/2019 8:21 AM 06/11/2019 1:35 PM Care Teams Zipper Ironer Relationship Specialty Start Date End Date Lopatin, El Andry, MD [address] [facility] [place] [address] PCP - General Family Practice 05/19/19
--- NOTE | 2025-05-08 12:22 | ECG_ITS ---
Test Date: 2025-05-08 13:15:39 Measurements Intervals [place] Rate: 80 P: 51 TN: 172 QRS: -30 QRSD: 90 T: 43 QT: 363 QTc: 420 Interpretive Statements SINUS RHYTHM POSSIBLE LEFT ATRIAL ENLARGEMENT DELAYED PRECORDIAL R/S TRANSITION BASELINE ARTIFACT- I, III, AVR, AVL, AVF, V6 BORDERLINE ECG Compared to ECG 07/23/2024 13:42:30 No significant changes Electronically Signed On 05-08-2025 16:05:06 CDT by Calos Tan D.O.
--- OUTSIDE RECORDS SUMMARY | 2025-05-08 12:35 | XMS_ITS | Clinical Summary ---
Author Organization [facility] Address [address] [place] [address] Care Team Providers Care Drill Operator Pneumatic Name Role Phone El Hawley MD Primary Care Provider [phone] Randi Beyer MD Unavailable [phone] Ike Arroyo MD Unavailable Julissa Cancino MD Unavailable [phone] Nati Wagner MD Unavailable [phone] Allergies No known active allergies Medications rosuvastatin [...] Diagnosed Date Coronary artery disease invo lving [place] coronary artery of [place] heart without angina pectoris 08/04/2023 Constipation 12/18/2022 [...] (02/07/2021): Added automatically from request for surgery [id number] Encounter for screening colonoscopy 11/24/2020 Overview (11/24/2020): Added automatically from request for surgery [id number] Hypokalemia 09/22/2020 Abdominal pain 08/17/2020 Assessment & Plan (02/27/2022 2:02 PM CDT): Improved since last being seen but still intermittently occurring - Continue mirilax daily - Will add bentyl QID PRN for intermittent abdominal cramps - Continue Nortriptyline Severe malnutrition 07/31/2020 Mucositis due to chemotherapy 07/29/2020 Assessment & Plan (07/30/2020 12:43 PM DRYWALL HANGER): Exacerbated by EGD procedure on 07/29 - Cont magic mouthwash - 7.5mg Oxycodone q5hr prn, Morphine 2mg IV 2nd line Assessment & Plan (07/29/2020 3:28 PM DRYWALL HANGER): Exacerbated by EGD procedure on 07/29 - Cont magic mouthwash - 7.5mg Oxycodone q5hr prn Peptic ulcer disease, colonic ulcers 07/27/2020 Assessment & Plan (07/30/2020 12:43 PM DRYWALL HANGER): Clean based ulcers seen in stomach and transverse colon on EGD/flex sig 07/28. Greatly appreciate GI input Likely from long-term NSAID use (diclofenac) and smoking - Await path biopsy, in particular H. Pylori - PO PPI BID Assessment & Plan (07/29/2020 3:36 PM DRYWALL HANGER): Clean based ulcers seen in stomach and transverse colon on EGD/flex sig 07/28. Greatly appreciate GI input Likely from long-term NSAID use (diclofenac) and smoking - Await path biopsy - PO PPI BID Assessment & Plan (07/28/2020 1:20 PM DRYWALL HANGER): CT a/p suggestive of gastritis and colitis. Started 1 day post chemo. Differential diagnosis includes chemotherapy-induced vs infectious Pain control with p.o. Oxy 1st line, IV morphine second-line Bowel rest with clear liquid diet as tolerated IV fluids until adequate p.o. intake, currently NPO pending covid for possible EGD/flex sig Antibiotics as listed elsewhere Assessment & Plan (07/27/2020 7:12 PM DRYWALL HANGER): CT a/p with gastritis and colitis in setting of immunosuppression. Differential diagnosis includes chemotherapy-induced vs infectious Pain control with p.o. Oxy 1st line, IV morphine second-line Bowel rest with clear liquid diet as tolerated IV fluids until adequate p.o. intake Blood cultures x2 in setting of chills with immunosuppression. Antibiotics as listed elsewhere Colitis 07/27/2020 Assessment & Plan (07/30/2020 12:44 PM DRYWALL HANGER): Also Seen on CT a/p. Likely due to chemotherapy (Gemcitabine), but also treating for infection given neutropenia at the time (ANC 300) - Cdiff, stool cx, CMV, O&P, cryptosporidium and giardia: Pt has yet to have BM - Cipro/Flagyl (07/27 ), transitioned to PO today. Day 4/ treatment Assessment & Plan (07/29/2020 3:33 PM DRYWALL HANGER): Also Seen on CT a/p. Likely due to chemotherapy (Gemcitabine), but also treating for infection given neutropenia at the time (ANC 300) - Cdiff, stool cx, CMV, O&P, cryptosporidium and giardia: Pt has yet to have BM - Cipro/Flagyl (07/27 ), transitioned to PO today. Day 3/ treatment Assessment & Plan (07/28/2020 1:24 PM DRYWALL HANGER): Seen on CT a/p. Likely due to chemotherapy. Should exclude infectious cause due to immunosuppression Cdiff, stool cx, CMV, O&P, cryptosporidium and giardia GI c/s, EGD and flex sig possibly today vs Friday once covid swab returns Assessment & Plan (07/27/2020 7:14 PM DRYWALL HANGER): Seen on CT a/p. Likely due to chemotherapy. Should exclude infectious cause due to immunosuppression Cdiff, stool cx, CMV, O&P, cryptosporidium and giardia Consult GI, may not be able to intervene in setting of neutropenia Gastritis 07/27/2020 Assessment & Plan (07/30/2020 12:43 PM DRYWALL HANGER): Seen on CT abdomen pelvis. Dark tarry stools x5 days, could be upper GI bleed or Right colonic bleed. Most likely due to chemotherapy, however history of diclofenac use, smoking. No alcohol use. Other etiologies include peptic ulcer disease PO pantoprazole b.i.d. GI consult as elsewhere Assessment & Plan (07/29/2020 3:32 PM DRYWALL HANGER): Seen on CT abdomen pelvis. Dark tarry stools x5 days, could be upper GI bleed or Right colonic bleed. Most likely due to chemotherapy, however history of diclofenac use, smoking. No alcohol use. Other etiologies include peptic ulcer disease PO pantoprazole b.i.d. GI consult as elsewhere Assessment & Plan (07/28/2020 1:24 PM DRYWALL HANGER): Seen on CT abdomen pelvis. Dark tarry stools x5 days, could be upper GI bleed or Right colonic bleed. Most likely due to chemotherapy, however history of diclofenac use, smoking. No alcohol use. Other etiologies include peptic ulcer disease IV pantoprazole b.i.d. GI consult as above Assessment & Plan (07/27/2020 7:14 PM DRYWALL HANGER): Seen on CT abdomen pelvis. Dark tarry stools x5 days. Most likely due to chemotherapy, however history of diclofenac use, smoking. No alcohol use. Other etiologies include peptic ulcer disease IV pantoprazole b.i.d. GI consult as above Bicytopenia 07/27/2020 Cancer Staging:Clinical: Unsigned Assessment & Plan (07/30/2020 12:44 PM DRYWALL HANGER): On admit, WBC 1.0, ANC 0.3, platelets 75, s/p 6mg pegfilgrastim post chemo infusion 07/21, improving counts Likely due to chemotherapy Continue to monitor Assessment & Plan (07/29/2020 3:35 PM DRYWALL HANGER): On admit, WBC 1.0, ANC 0.3, platelets 75, s/p 6mg pegfilgrastim post chemo infusion 07/21, improving counts Likely due to chemotherapy Continue to monitor Assessment & Plan (07/28/2020 1:27 PM DRYWALL HANGER): White blood cell count 1.0, absolute neutrophil count 0.3, platelets 75, s/p 6mg pegfilgrastim post chemo infusion 07/21,improving counts Likely due to chemotherapy Continue to monitor Cover for bacterial abdominal infection with IV cefepime and IV metronidazole Consent for blood products signed Neutropenic precautions Blood cultures x2 in setting of persistent chills with immunosuppression. Assessment & Plan (07/27/2020 7:13 PM DRYWALL HANGER): White blood cell count 1.0, absolute neutrophil count 0.3, platelets 75 Likely due to chemotherapy Continue to monitor Cover for bacterial abdominal infection with IV cefepime and IV metronidazole Consent for blood products signed Neutropenic precautions Hepatic fibrosis 07/27/2020 Assessment & Plan (07/30/2020 12:43 PM DRYWALL HANGER): Seen on CT abdomen pelvis, no prior diagnosis. LFTs unremarkable. No long-term alcohol use. No signs of decompensation on exam Hepatitis panel negative. Assessment & Plan (07/29/2020 3:29 PM DRYWALL HANGER): Seen on CT abdomen pelvis, no prior diagnosis. LFTs unremarkable. No long-term alcohol use. No signs of decompensation on exam Hepatitis panel negative. Assessment & Plan (07/28/2020 1:28 PM DRYWALL HANGER): Seen on CT abdomen pelvis, no prior diagnosis. LFTs unremarkable. No long-term alcohol use. Hepatitis panel negative. Assessment & Plan (07/27/2020 7:06 PM DRYWALL HANGER): Seen on CT abdomen pelvis, LFTs unremarkable. No long-term alcohol use. Hepatitis panel Thrush 07/27/2020 Assessment & Plan (07/30/2020 12:42 PM DRYWALL HANGER): Oral candidiasis In the setting of chemotherapy. Resolved w/ Nystatin S+S Assessment & Plan (07/29/2020 3:28 PM DRYWALL HANGER): Oral candidiasis In the setting of chemotherapy. Resolved. Cont Nystatin S+S Assessment & Plan (07/28/2020 1:28 PM DRYWALL HANGER): Oral candidiasis In the setting of chemotherapy Magic mouthwash (concurrent mucositis) Assessment & Plan (07/27/2020 7:07 PM DRYWALL HANGER): In the setting of chemotherapy Nystatin swish and swallow Duodenal nodule 07/27/2020 Assessment & Plan (02/27/2022 2:02 PM CDT): - Continue yearly surveillance - Last CT in 06/2021 with decreased size Assessment & Plan (07/30/2020 12:44 PM DRYWALL HANGER): Seen on CT abdomen and pelvis (07/27): Small enhancing paraduodenal nodule. This does not have the typical appearance of a lymph node and may represent a neuroendocrine tumor - This was not able to be biopsied on 07/28 EGD. Per GI, will re-attempt with EUS on repeat endoscopy 8 weeks from now Assessment & Plan (07/29/2020 3:31 PM DRYWALL HANGER): Seen on CT abdomen and pelvis (07/27): Small enhancing paraduodenal nodule. This does not have the typical appearance of a lymph node and may represent a neuroendocrine tumor - This was not able to be biopsied on 07/28 EGD. Med-onc following, will see if we need to pursue this further Assessment & Plan (07/28/2020 1:29 PM DRYWALL HANGER): Seen on CT abdomen and pelvis. Small enhancing paraduodenal nodule. This does not have the typical appearance of a lymph node and may represent a neuroendocrine tumor. Will t/b GI to see if this can be biopsied during EGD, per med onc rec Assessment & Plan (07/27/2020 7:09 PM DRYWALL HANGER): Seen on CT abdomen and pelvis. Small enhancing paraduodenal nodule. This does not have the typical appearance of a lymph node and may represent a neuroendocrine tumor. Follow-up imaging 3-6 months for surveillance Hypertension, essential 07/27/2020 Assessment & Plan (07/30/2020 12:43 PM DRYWALL HANGER): Normotensive here. Hold home lisinopril in setting of dehydration. Assessment & Plan (07/29/2020 3:29 PM DRYWALL HANGER): Normotensive here. Hold home lisinopril in setting of dehydration. Assessment & Plan (07/28/2020 1:29 PM DRYWALL HANGER): Normotensive here. Hold home lisinopril in setting of dehydration. Assessment & Plan (07/27/2020 7:10 PM DRYWALL HANGER): Normotensive here. Hold home lisinopril in setting of dehydration. Hyperlipidemia, unspecified 07/27/2020 Assessment & Plan (07/30/2020 12:43 PM DRYWALL HANGER): Continue home rosuvastatin Assessment & Plan (07/29/2020 3:29 PM DRYWALL HANGER): Continue home rosuvastatin Assessment & Plan (07/28/2020 1:29 PM DRYWALL HANGER): Continue home rosuvastatin Assessment & Plan (07/27/2020 7:11 PM DRYWALL HANGER): Continue home rosuvastatin Acute hemorrhagic gastritis 07/27/2020 Overview (07/28/2020): Added automatically from request for surgery [id number] Malignant neoplasm of upper- outer quadrant of left breast in female, estrogen receptor negative 07/07/2020 Cancer Staging:Clinical stage from 07/14/2020:Stage IIB(cT2, cN0, cM0, G3, ER-, ID-, HER2-) - Signed by Ike Arroyo MD on 07/14/2020 Assessment & Plan (07/30/2020 12:43 PM DRYWALL HANGER): 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 Arroyo Enrolled in trial for neoadjuvant docetaxel plus carboplatin every 3 weeks for 6 cycles Med onc following Assessment & Plan (07/29/2020 3:28 PM DRYWALL HANGER): 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 Arroyo Enrolled in trial for neoadjuvant docetaxel plus carboplatin every 3 weeks for 6 cycles Med onc following Assessment & Plan (07/28/2020 1:24 PM DRYWALL HANGER): 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 Arroyo Enrolled in trial for neoadjuvant docetaxel plus carboplatin every 3 weeks for 6 cycles Medical oncology consult. Assessment & Plan (07/27/2020 6:58 PM DRYWALL HANGER): Triple negative invasive ductal carcinoma stage II [...] history exists Medical Devices Implanted Type Area Performance Improvement Manager Device Identifier Shelf Expiration Date Model / Serial / Lot [employer] [id number] Magseed 18ga 7cm Marker Breast Biopsy - [id number] Implanted:Qty : 1 on 10/30/2020 at [facility] Left: Breast [employer] [id number] 03/07/2024 [id number] Explanted Type Area Performance Improvement Manager Device Identifier Shelf Expiration Date Model / Serial / Lot [employer] [id number] Powerport Airguard 8fr 1 Lumen Attachable Catheter Intermediate Latex Free - [id number] Implanted:Qty: 1 on 07/13/2020 by Julissa Cancino MD at [facility] Explanted:Qty: 1 on 02/26/2021 at [facility] Right: Chest [employer] 12/06/2021 [id number] / / [id number] Procedures Procedure Name Priority Date/Time Associated Diagnosis Comments SCREENING MAMMOGRAM BILATERAL W CHANDLER Schedule Routine, Read Routine (OP Routine) 11/08/2024 9:53 AM DRYWALL HANGER Malignant neoplasm of upper-outer quadrant of left [...] Mammogram Bilateral W Chandler (11/08/2024 9:53 AM DRYWALL HANGER) Anatomical Region Laterality Modality Breast Bilateral Mammography Narrative 11/08/2024 3:14 PM DRYWALL HANGER Mammogram Technique: Bilateral Digital Breast Tomosynthesis, Bilateral C-view 2D Screening mammogram. Views obtained: bilateral craniocaudal and bilateral mediolateral oblique. Computer Aided Detection was performed. Mammogram Findings: The present examination has been compared to prior imaging studies performed at [facility] on 05/22/2021, 05/28/2022 and 06/10/2023. The [...] compared to prior imaging studies performed at [facility] on 05/22/2021, 05/28/2022 and 06/10/2023. The [...] pain Electronically signed by: Justin Peterson M.D. [facility] 06/19/2022 11:59 AM CDT EXAMINATION: Computed tomography [...] - GENERAL ORDERABLES Edited Result - Final [facility] Department [place] [address] * COLONOSCOPY (11/29/2020 10:45 AM CDT) Anatomical Region Laterality Modality Other Narrative Procedure Note Ted Dunlap MD - 11/29/2020 10:45 AM CDT ENDOSCOPY LAB Patient Name: Ashley Adams Procedure Date: 11/29/2020 10:45 AM Admit Type: Outpatient Room: [facility] 4 Date of : 1950 Instrument Name: [...] Most Recently Relevant to Health Maintenance Insurance [facility] CHOICE PLUS MEDICARE [facility] OPEN ACCESS [employer] MEDICARE [facility] Advance Directives For more information, please contact: [phone] Documents on File Type Date Recorded Patient [employer] Expl anation ADVANCE DIRECTIVE 07/13/2020 9:07 AM [...] 5:13 PM 07/27/2020 6:04 PM Care Teams Drill Operator Pneumatic Relationship Specialty Start Date End Date El Hawley MD [address] [place] [id number] PCP - General 11/21/20 Randi Beyer MD [address] [facility] [address] [place] [address] Referring Physician Gynecology 07/05/20 Ike Arroyo MD [address] [place] [address] Medical Oncologist Medical Oncology 09/20/20 Julissa Cancino MD [address] [address] Surgeon Surgical Oncology 02/19/21 Nati Wagner MD [address] [address] Radiation Oncologist Radiation Oncology 05/05/24
--- OUTSIDE RECORDS SUMMARY | 2025-05-08 12:35 | XMS_ITS ---
Author Organization [facility] Address [address] [place] [address] Care Team Providers Care Mononitrotoluene Operator Name Role Phone El Hawley MD Primary Care Provider [phone] Randi Beyer MD Unavailable [phone] Ike Arroyo MD Unavailable Julissa Cancino MD Unavailable [phone] Nati Wagner MD Unavailable [phone] Active Problems Problem Noted Date Diagnosed Date Coronary artery disease invo lving [place] coronary artery of [place] heart without angina pectoris 08/04/2023 Constipation 12/18/2022 [...] (02/07/2021): Added automatically from request for surgery [id number] Encounter for screening colonoscopy 11/24/2020 Overview (11/24/2020): Added automatically from request for surgery [id number] Hypokalemia 09/22/2020 Abdominal pain 08/17/2020 Assessment & Plan (02/27/2022 2:02 PM CDT): Improved since last being seen but still intermittently occurring - Continue mirilax daily - Will add bentyl QID PRN for intermittent abdominal cramps - Continue Nortriptyline Severe malnutrition 07/31/2020 Mucositis due to chemotherapy 07/29/2020 Assessment & Plan (07/30/2020 12:43 PM REFRIGERATING ENGINEER): Exacerbated by EGD procedure on 07/29 - Cont magic mouthwash - 7.5mg Oxycodone q5hr prn, Morphine 2mg IV 2nd line Assessment & Plan (07/29/2020 3:28 PM REFRIGERATING ENGINEER): Exacerbated by EGD procedure on 07/29 - Cont magic mouthwash - 7.5mg Oxycodone q5hr prn Peptic ulcer disease, colonic ulcers 07/27/2020 Assessment & Plan (07/30/2020 12:43 PM REFRIGERATING ENGINEER): Clean based ulcers seen in stomach and transverse colon on EGD/flex sig 07/28. Greatly appreciate GI input Likely from long-term NSAID use (diclofenac) and smoking - Await path biopsy, in particular H. Pylori - PO PPI BID Assessment & Plan (07/29/2020 3:36 PM REFRIGERATING ENGINEER): Clean based ulcers seen in stomach and transverse colon on EGD/flex sig 07/28. Greatly appreciate GI input Likely from long-term NSAID use (diclofenac) and smoking - Await path biopsy - PO PPI BID Assessment & Plan (07/28/2020 1:20 PM REFRIGERATING ENGINEER): CT a/p suggestive of gastritis and colitis. Started 1 day post chemo. Differential diagnosis includes chemotherapy-induced vs infectious Pain control with p.o. Oxy 1st line, IV morphine second-line Bowel rest with clear liquid diet as tolerated IV fluids until adequate p.o. intake, currently NPO pending covid for possible EGD/flex sig Antibiotics as listed elsewhere Assessment & Plan (07/27/2020 7:12 PM REFRIGERATING ENGINEER): CT a/p with gastritis and colitis in setting of immunosuppression. Differential diagnosis includes chemotherapy-induced vs infectious Pain control with p.o. Oxy 1st line, IV morphine second-line Bowel rest with clear liquid diet as tolerated IV fluids until adequate p.o. intake Blood cultures x2 in setting of chills with immunosuppression. Antibiotics as listed elsewhere Colitis 07/27/2020 Assessment & Plan (07/30/2020 12:44 PM REFRIGERATING ENGINEER): Also Seen on CT a/p. Likely due to chemotherapy (Gemcitabine), but also treating for infection given neutropenia at the time (ANC 300) - Cdiff, stool cx, CMV, O&P, cryptosporidium and giardia: Pt has yet to have BM - Cipro/Flagyl (07/27 - ), transitioned to PO today. Day 4/7 treatment Assessment & Plan (07/29/2020 3:33 PM REFRIGERATING ENGINEER): Also Seen on CT a/p. Likely due to chemotherapy (Gemcitabine), but also treating for infection given neutropenia at the time (ANC 300) - Cdiff, stool cx, CMV, O&P, cryptosporidium and giardia: Pt has yet to have BM - Cipro/Flagyl (07/27 - ), transitioned to PO today. Day 3/7 treatment Assessment & Plan (07/28/2020 1:24 PM REFRIGERATING ENGINEER): Seen on CT a/p. Likely due to chemotherapy. Should exclude infectious cause due to immunosuppression Cdiff, stool cx, CMV, O&P, cryptosporidium and giardia GI c/s, EGD and flex sig possibly today vs Friday once covid swab returns Assessment & Plan (07/27/2020 7:14 PM REFRIGERATING ENGINEER): Seen on CT a/p. Likely due to chemotherapy. Should exclude infectious cause due to immunosuppression Cdiff, stool cx, CMV, O&P, cryptosporidium and giardia Consult GI, may not be able to intervene in setting of neutropenia Gastritis 07/27/2020 Assessment & Plan (07/30/2020 12:43 PM REFRIGERATING ENGINEER): Seen on CT abdomen pelvis. Dark tarry stools x5 days, could be upper GI bleed or Right colonic bleed. Most likely due to chemotherapy, however history of diclofenac use, smoking. No alcohol use. Other etiologies include peptic ulcer disease PO pantoprazole b.i.d. GI consult as elsewhere Assessment & Plan (07/29/2020 3:32 PM REFRIGERATING ENGINEER): Seen on CT abdomen pelvis. Dark tarry stools x5 days, could be upper GI bleed or Right colonic bleed. Most likely due to chemotherapy, however history of diclofenac use, smoking. No alcohol use. Other etiologies include peptic ulcer disease PO pantoprazole b.i.d. GI consult as elsewhere Assessment & Plan (07/28/2020 1:24 PM REFRIGERATING ENGINEER): Seen on CT abdomen pelvis. Dark tarry stools x5 days, could be upper GI bleed or Right colonic bleed. Most likely due to chemotherapy, however history of diclofenac use, smoking. No alcohol use. Other etiologies include peptic ulcer disease IV pantoprazole b.i.d. GI consult as above Assessment & Plan (07/27/2020 7:14 PM REFRIGERATING ENGINEER): Seen on CT abdomen pelvis. Dark tarry stools x5 days. Most likely due to chemotherapy, however history of diclofenac use, smoking. No alcohol use. Other etiologies include peptic ulcer disease IV pantoprazole b.i.d. GI consult as above Bicytopenia 07/27/2020 Cancer Staging:Clinical: Unsigned Assessment & Plan (07/30/2020 12:44 PM REFRIGERATING ENGINEER): On admit, WBC 1.0, ANC 0.3, platelets 75, s/p 6mg pegfilgrastim post chemo infusion 07/21, improving counts Likely due to chemotherapy Continue to monitor Assessment & Plan (07/29/2020 3:35 PM REFRIGERATING ENGINEER): On admit, WBC 1.0, ANC 0.3, platelets 75, s/p 6mg pegfilgrastim post chemo infusion 07/21, improving counts Likely due to chemotherapy Continue to monitor Assessment & Plan (07/28/2020 1:27 PM REFRIGERATING ENGINEER): White blood cell count 1.0, absolute neutrophil count 0.3, platelets 75, s/p 6mg pegfilgrastim post chemo infusion 07/21,improving counts Likely due to chemotherapy Continue to monitor Cover for bacterial abdominal infection with IV cefepime and IV metronidazole Consent for blood products signed Neutropenic precautions Blood cultures x2 in setting of persistent chills with immunosuppression. Assessment & Plan (07/27/2020 7:13 PM REFRIGERATING ENGINEER): White blood cell count 1.0, absolute neutrophil count 0.3, platelets 75 Likely due to chemotherapy Continue to monitor Cover for bacterial abdominal infection with IV cefepime and IV metronidazole Consent for blood products signed Neutropenic precautions Hepatic fibrosis 07/27/2020 Assessment & Plan (07/30/2020 12:43 PM REFRIGERATING ENGINEER): Seen on CT abdomen pelvis, no prior diagnosis. LFTs unremarkable. No long-term alcohol use. No signs of decompensation on exam Hepatitis panel negative. Assessment & Plan (07/29/2020 3:29 PM REFRIGERATING ENGINEER): Seen on CT abdomen pelvis, no prior diagnosis. LFTs unremarkable. No long-term alcohol use. No signs of decompensation on exam Hepatitis panel negative. Assessment & Plan (07/28/2020 1:28 PM REFRIGERATING ENGINEER): Seen on CT abdomen pelvis, no prior diagnosis. LFTs unremarkable. No long-term alcohol use. Hepatitis panel negative. Assessment & Plan (07/27/2020 7:06 PM REFRIGERATING ENGINEER): Seen on CT abdomen pelvis, LFTs unremarkable. No long-term alcohol use. Hepatitis panel Thrush 07/27/2020 Assessment & Plan (07/30/2020 12:42 PM REFRIGERATING ENGINEER): Oral candidiasis In the setting of chemotherapy. Resolved w/ Nystatin S+S Assessment & Plan (07/29/2020 3:28 PM REFRIGERATING ENGINEER): Oral candidiasis In the setting of chemotherapy. Resolved. Cont Nystatin S+S Assessment & Plan (07/28/2020 1:28 PM REFRIGERATING ENGINEER): Oral candidiasis In the setting of chemotherapy Magic mouthwash (concurrent mucositis) Assessment & Plan (07/27/2020 7:07 PM REFRIGERATING ENGINEER): In the setting of chemotherapy Nystatin swish and swallow Duodenal nodule 07/27/2020 Assessment & Plan (02/27/2022 2:02 PM CDT): - Continue yearly surveillance - Last CT in 06/2021 with decreased size Assessment & Plan (07/30/2020 12:44 PM REFRIGERATING ENGINEER): Seen on CT abdomen and pelvis (07/27): Small enhancing paraduodenal nodule. This does not have the typical appearance of a lymph node and may represent a neuroendocrine tumor - This was not able to be biopsied on 07/28 EGD. Per GI, will re-attempt with EUS on repeat endoscopy 8 weeks from now Assessment & Plan (07/29/2020 3:31 PM REFRIGERATING ENGINEER): Seen on CT abdomen and pelvis (07/27): Small enhancing paraduodenal nodule. This does not have the typical appearance of a lymph node and may represent a neuroendocrine tumor - This was not able to be biopsied on 07/28 EGD. Med-onc following, will see if we need to pursue this further Assessment & Plan (07/28/2020 1:29 PM REFRIGERATING ENGINEER): Seen on CT abdomen and pelvis. Small enhancing paraduodenal nodule. This does not have the typical appearance of a lymph node and may represent a neuroendocrine tumor. Will t/b GI to see if this can be biopsied during EGD, per med onc rec Assessment & Plan (07/27/2020 7:09 PM REFRIGERATING ENGINEER): Seen on CT abdomen and pelvis. Small enhancing paraduodenal nodule. This does not have the typical appearance of a lymph node and may represent a neuroendocrine tumor. Follow-up imaging 3-6 months for surveillance Hypertension, essential 07/27/2020 Assessment & Plan (07/30/2020 12:43 PM REFRIGERATING ENGINEER): Normotensive here. Hold home lisinopril in setting of dehydration. Assessment & Plan (07/29/2020 3:29 PM REFRIGERATING ENGINEER): Normotensive here. Hold home lisinopril in setting of dehydration. Assessment & Plan (07/28/2020 1:29 PM REFRIGERATING ENGINEER): Normotensive here. Hold home lisinopril in setting of dehydration. Assessment & Plan (07/27/2020 7:10 PM REFRIGERATING ENGINEER): Normotensive here. Hold home lisinopril in setting of dehydration. Hyperlipidemia, unspecified 07/27/2020 Assessment & Plan (07/30/2020 12:43 PM REFRIGERATING ENGINEER): Continue home rosuvastatin Assessment & Plan (07/29/2020 3:29 PM REFRIGERATING ENGINEER): Continue home rosuvastatin Assessment & Plan (07/28/2020 1:29 PM REFRIGERATING ENGINEER): Continue home rosuvastatin Assessment & Plan (07/27/2020 7:11 PM REFRIGERATING ENGINEER): Continue home rosuvastatin Acute hemorrhagic gastritis 07/27/2020 Overview (07/28/2020): Added automatically from request for surgery [id number] Malignant neoplasm of upper- outer quadrant of left breast in female, estrogen receptor negative 07/07/2020 Cancer Staging:Clinical stage from 07/14/2020:Stage IIB(cT2, cN0, cM0, G3, ER-, OK-, HER2-) - Signed by Ike Arroyo MD on 07/14/2020 Assessment & Plan (07/30/2020 12:43 PM REFRIGERATING ENGINEER): 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 Arroyo Enrolled in trial for neoadjuvant docetaxel plus carboplatin every 3 weeks for 6 cycles Med onc following Assessment & Plan (07/29/2020 3:28 PM REFRIGERATING ENGINEER): 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 Arroyo Enrolled in trial for neoadjuvant docetaxel plus carboplatin every 3 weeks for 6 cycles Med onc following Assessment & Plan (07/28/2020 1:24 PM REFRIGERATING ENGINEER): 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 Arroyo Enrolled in trial for neoadjuvant docetaxel plus carboplatin every 3 weeks for 6 cycles Medical oncology consult. Assessment & Plan (07/27/2020 6:58 PM REFRIGERATING ENGINEER): Triple negative invasive ductal carcinoma stage II [...] Treatment Medications Discontinue Reason Plan Provider Cycles [id number] - [facility] - Phase 1 - Neoantigen DNA Vaccine + Durvalumab 11/09/2021 04/26/2022 [facility] (/D [id number]) durvalumab ([id number]) IVPB [facility] neoantigen DNA vaccine () Patient Preference Ike Arroyo MD 6 of 7 cycles started Capecitabine PO 21 Day Cycles - Breast 03/23/2021 capecitabine (XELODA) Provider Discretion Ike Arroyo MD Treatment not started [id number] - [facility] - Breast - Co-clinical Trial: Carboplatin and [...]
--- OUTSIDE RECORDS SUMMARY | 2025-05-08 12:35 | XMS_ITS | Clinical Summary ---
Author Organization [facility] Address [address] [facility] [address] [place] [address] Phone Care Team Providers Care Chip Mixer Name Role Phone El Hawley MD Primary Care Provider [phone] Allergies No known active allergies Medications diclofenac (VOLTAREN) 75 MG Tablet Delayed Response Take 75 mg by mouth 3 times daily. Active rosuvastatin (CRESTOR) 20 MG Tablet Take 20 mg by mouth daily. Active lisinopril (PRINIVIL, ZESTRIL) 10 MG Tablet Take 10 mg by mouth daily. Active Cholecalciferol (VITAMIN D3 PO) Take by mouth. Active estradiol (ESTRACE) 0.1 MG/GM Cream 2 g by Vaginal route daily. Active clobetasol (TEMOVATE) 0.05 % Ointment 12/02/2019 Active nystatin (MYCOSTATIN) 633785 UNIT/ML SuspensionIndic ations:Thrush Take 5 mL by mouth 4 times daily (after meals and nightly). Swish and swallow X 14 days 280 mL 03/07/2020 Active Active Problems No known active problems Family History Medical History Relation Name Comments Prostate Cancer Father Chronic Obstructive Pulmonary Disease Mother Depression Mother Diabetes Mother Heart Disease Mother Relation Name Status Comments Father Mother Social History Tobacco Use Types Packs/Day Years Used Date Smoking Tobacco: Every Day Cigarettes 1 56.3 Started: [birth year]/01/1969 Smokeless Tobacco: Never Tobacco Cessation:Ready to Q uit: Yes Alcohol Use Standard Drinks/Week Comments Not Currently 0 (1 standard drink = 0.6 oz pur e alcohol) AUDIT-C Answer Date Recorded Q1: How often do you have a drink containing alc ohol? Never 02/02/2020 Average Number of Drinks Not on file 020 Q3: How often do you have si x or more drinks on one occasion? Never 02/02/2020 Comments No Sex and Gender Information Value Date Recorded Sex Assigned at Not on file Legal Sex Female 2:16 PM CDT Gender Identity Not on file Sexual Orientation Not on file Last Filed Vital Signs Vital Sign Reading Time Taken Comments Blood Pressure 118/84 04/12/2020 11:05 AM CDT Pulse 89 04/12/2020 11:05 AM CDT Temperature 36.5 C (97.7 F) 04/12/2020 11:05 AM CDT Respiratory Rate 16 04/12/2020 11:05 AM CDT Oxygen Saturation 98% 04/12/2020 11:05 AM CDT Inhaled Oxygen Concentration - - Weight 76.9 kg (169 lb 9.6 oz) 04/12/2020 11:05 AM CDT Height 165.1 cm (5' 5) 03/02/2020 2:33 PM CDT Body Mass Index 28.22 03/02/2020 2:33 PM CDT Plan of Treatment Health Maintenance Due Date Last Done Comments Hepatitis C Virus (HCV) Screening 1950 TdaP Immunization 1950 Cologuard 01/21/1996 Colonoscopy 01/21/1996 Colorectal Cancer Screening 01/21/1996 Immunochemical Fecal Occult Blood 01/21/1996 Zoster Immunization (1 of 2) 2001 Pneumococcal Immunization (5 0+ years) (2 of 2 - PCV20 or PCV21) 05/24/2020 05/24/2019 SARS-COV-2 Immunization ( - 2023- season) 2024 07/10/2021, 12/01/2020, 11/10/2020 Influenza Immunization (#1) 2025 Respiratory Syncytial Virus (RSV) Immunization (Adult) (1 - 1-dose 75+ series) 2026 DTaP/Tdap/Td Immunization Discontinued 09/08/2006 Pneumococcal Immunization Combined Discontinued 05/24/2019 Hepatitis B Immunization Aged Out No longer eligible based on patient's age to complete this topic Human Papillomavirus (HPV) Immunization Aged Out No longer eligible based on patient's age to complete this topic Meningococcal Immunization (ACWY) Aged Out No longer eligible based on patient's age to complete this topic Rotavirus Immunization Aged Out No lo nger eligible based on patient's age to complete this topic Care Teams Chip Mixer Relationship Specialty Start Date End Date El Hawley MD [address] [place] [id number] PCP - General Family Medicine 02/02/20
--- OUTSIDE RECORDS SUMMARY | 2025-05-08 12:35 | XMS_ITS | Clinical Summary ---
Author Organization [facility] Address [address] [place] [address] Care Team Providers Care Gas Inspector Name Role Phone Angelica White MD Primary Care Provider Source Comments [facility],non-owned Affiliates and Associated Physician Practices is amultiple site organization consisting of ambulatory clinics and hospital sitesin [place], [place], [place] and [place]. This disclosure is being madepursuant to the Care Everywhere program and may not contain all information available regarding this patient. Last updated 18.[facility] Allergies No known active allergies Medications * [...] on file Legal Sex Female 5:48 AM SENIOR EXAMINER Gender Identity Not on file Sexual Orientation [...] patient's age to complete this topic Insurance [facility] Care Teams Gas Inspector Relationship Specialty Start Date End Date Angelica White MD [address] [place] [address] [address] [place] [address] PCP - General 10/25/22
--- OUTSIDE RECORDS SUMMARY | 2025-05-08 12:35 | XMS_ITS | Clinical Summary ---
Author Organization [facility] Address [address] [place] [address] Care Team Providers Care Poiser Name Role Phone El Hawley MD Primary [...] 77.1 kg (170 lb) 08/24/2019 1:09 PM QUARANTINE OFFICER Height 162.6 cm (5' 4) 08/24/2019 1:09 PM QUARANTINE OFFICER Body Mass Index 29.18 08/24/2019 1:09 PM QUARANTINE OFFICER Plan of Treatment Health Maintenance Due Date [...] series) 2026 Medical Devices Explanted Type Area Hand Binder Cutter Device Identifier Shelf Expiration Date Model / Serial / Lot Hemostatic Surgiflo 8ml W/Thrombin 2994 - Sna Explanted:Qty: 1 on 06/11/2019 by Luis Manuel Sarmiento MD at [facility] Hemostatic N/A: Spine Lumbar [employer] 05/08/2020 2994 / NA / [id number] Hemostatic Surgifoam Sz12-7 1971 - Sna Explanted:Qty: 1 on 06/11/2019 by Luis Manuel Sarmiento MD at [facility] Hemostatic N/A: Spine Lumbar [employer]- [employer] 04/20/2023 1972 / NA / [id number] Insurance [facility] Address: [place] [id number] [place] [address] RX [employer] Member Subscriber Plan / Payer (Ef fective 2019-Present) Name:Zbigniew Adams Relation to Subscriber:Not on file Name:Zbigniew Adams Subscriber ID:Not on file Payer ID:Not on file Group ID:[id number] Type:RX Commercial Address: [address] Advance Directives For more information, please contact: [phone] * Full Code (Latest Code Status on File) Date Activated Date Inactivated Comments 06/11/2019 8:21 AM 06/11/2019 1:35 PM Care Teams Poiser Relationship Specialty Start Date End Date Lopatin, El Andry, MD [address] [facility] [place] [address] PCP - General Family Practice 05/19/19
[2025-05-08 12:52] LABS: Hematocrit 50.0 % (37.0-47.0); Hemoglobin 16.4 g/dL (12.0-15.0); Immature Granulocyte Percent A 0.2 % (0-0.5); Lymphocytes Absolute Auto 1.56 K/mm3 (0.9-3.2); Mean Corpuscular HGB Conc 32.8 g/dl (32-36); Mean Corpuscular Hemoglobin 30.3 pg (26-34); Mean Corpuscular Volume 92.3 fl (80-100); Nucleated Red Blood Cells Absolute Auto 0.000 K/mm3 (0.0-0.012); Nucleated Red Blood Cells Perc 0.0 % (0.0-0.2); Platelet Count Result 210 k/mm3 (150-375); Red Blood Count 5.42 M/mm3 (4.2-5.4); White Blood Count 5.6 K/mm3 (4.5-10.0)
[2025-05-08 13:03] LABS: INR 1.0; Prothrombin Time 13.2 Seconds (11.1-14.7)
[2025-05-08 13:04] LABS: Partial Thromboplastin Time 28.2 Seconds (22.3-36.8)
[2025-05-08 13:40] LABS: Alanine Aminotransferase 24 U/L (6-35); Albumin Level 4.4 g/dL (3.5-5.1); Alkaline Phosphatase 96 U/L (38-126); Anion Gap 11 mmol/L (4-12); Aspartate Amino Transferase 42 U/L (14-36); Bilirubin,Total 1.2 mg/dL (0.2-1.3); Blood Urea Nitrogen 18 mg/dL (7-17); Calcium 9.8 mg/dL (8.4-10.2); Carbon Dioxide 23 mmol/L (22-30); Chloride 105 mmol/L (98-107); Estimated CRCL calculation 50 ml/min; Estimated Glomerular Filt Rate > 60; Glucose 102 mg/dL (65-110); Potassium 4.1 mmol/L (3.4-5.0); Sodium 139 mmol/L (137-145); Total Protein 8.4 g/dL (6.3-8.2)
--- NOTE | 2025-05-08 14:01 | ED.GENADULT ---
HPI - General Adult General Chief complaint: Dizziness Stated complaint: HTN Time Seen by Provider: 05/08/25 12:17 History of Present Illness HPI narrative: [age] old female presents to the emergency department for evaluation for elevated blood pressure. Patient does have history of hypertension does take lisinopril, 5 mg p.o. daily. Patient previously been on a higher dose but over the last 2 years she was able to decreased down to 5 mg. Patient reports over the last 6 days he has had elevated blood pressure. Patient did take increased dose of her lisinopril last night but states this did not significantly improve her blood pressure. Patient states her blood pressures typically run in the 130s systolic range but last night they are running 200 at. Arrival to the emergency department patient blood pressure was approximately 150 systolic but patient did have increase in blood pressure to about 190 systolic. Patient states she is having intermittent headaches some associated wooziness. Patient denies any coughs colds fevers nausea vomiting diarrhea pain with urination or decreased p.o. intake. Related Data Home Medications ?Medication ?Instructions ?Recorded ?Confirmed ?Last Taken ?Type estradiol 0.01% (0.1 mg/gram) 1 g vaginal WEEKLY 02/17/20 12/02/24 Unknown History vaginal cream (Estrace) Allergies Allergy/AdvReac Type Severity Reaction Status Date / Time metronidazole AdvReac Intermediate Vomiting Verified 05/08/25 11:21 Review of Systems Review of Systems: All systems reviewed & are unremarkable except as noted in HPI and below PMFSH Past Medical History Medical History (Updated 05/08/25 @ 16:13 by Casey Perez MD) Muscle contraction headache Lipedema History of AR (myocardial infarction) Atherosclerosis of [place] coronary artery of [place] heart without angina pectoris Non-STEMI 07/2023 Nicotine dependence, cigarettes, in remission Generalized osteoarthritis Major depressive disorder, single episode, in full remission Atherosclerosis of aorta Drug-induced polyneuropathy Degenerative disc disease, lumbar Intraductal carcinoma of left breast Gastroesophageal reflux disease without esophagitis Cervicalgia Chronic idiopathic constipation Hyperlipidemia Hypertension Surgical History Surgical History History of partial mastectomy of left breast 11/06/2020 Hx of lumbar discectomy 06/11/2019 Bilateral cataracts 2016 and 2017 H/O removal of neck cyst larynx cyst removal 2014 History of tubal ligation 1985 H/O cervical spine surgery Discectomy X2 C5-6 and C6-7 1984 H/O colonoscopy Family History Family History Mother Family history of diabetes mellitus in first degree relative Family history of type 2 diabetes mellitus Family history of chronic obstructive pulmonary disease Hypertension HLD (hyperlipidemia) Father Malignant neoplasm of prostate Hypertension HLD (hyperlipidemia) Social History Social History Smoking packs per day: 1 Smoking cigarettes per day: 20.0 Years smoked: 40 Smoking pack-years: 40.00 Smoking status: Former smoker Tobacco type: cigarettes Second hand tobacco smoke exposure: Yes ( still smokes) Smoking end date: 05/09/20 Alcohol intake: never Substance use: never Substance use type: marijuana Other substance usage details: Gummies occasionally for anxiety prn Do You Feel Safe in your Home?: Yes Lack of Transportation: No Lack of Food: Never True Current Housing: I Have Housing Concerned About Future Housing: No Difficulty Paying Gas/Electric Bills: No Difficulty Paying for Meds: No Currently Unemployed: No Education: Associate Degree Difficulty w/ Childcare or Family Care: No Living arrangements: with family Additional living arrangements comments: [email or web address] Occupation/Education: retired Gender identity (if verbalized by the patient): Female Sexual Orientation (if Verbalized by the Patient): Straight or Heterosexual Spiritual care concerns: No Exam Narrative: APPEARANCE: Well appearing, no pain, no distress, well-nourished. HEAD: normocephalic, atraumatic. EYES: PERRLA/EOMI, conjunctivae clear. NOSE: Normal no drainage EARS:TMS clear with good light reflex. THROAT: Pharynx clear, no exudate. NECK: Supple. No adenopathy, no masses. RESPIRATORY: Airway patent, respirations nonlabored. Clear to auscultation bilaterally, no rales, rhonchi, wheezing. CARDIOVASCULAR: Regular rate and rhythm without murmurs rubs or gallops. ABDOMINAL: Soft, nontender, nondistended, normal bowel sounds MUSCULOSKELETAL: Moves all extremities. Strength/ROM intact, No edema, No calf tenderness. NEURO: Alert. Cranial nerves II through XII intact. Good gait. Good coordination SKIN: Warm, dry. Normal Color Course Vital Signs Vital signs: Vital Signs Temperature 98.0 F 05/08/25 11:19 Pulse Rate 105 H 05/08/25 11:19 Respiratory Rate 14 05/08/25 11:19 Blood Pressure 152/91 H 05/08/25 11:19 Pulse Oximetry 96 05/08/25 11:19 Oxygen Delivery Room Air 05/08/25 11:19 Temperature 98.0 F 05/08/25 11:19 Pulse Rate 95 05/08/25 16:30 Respiratory Rate 16 05/08/25 16:30 Blood Pressure 169/69 H 05/08/25 16:30 Pulse Oximetry 95 05/08/25 16:30 Oxygen Delivery Room Air 05/08/25 11:19 Medical Decision Making MDM Narrative Medical decision making narrative: 75-year-old female presenting to the emergency department for evaluation for elevated blood pressure. Patient is currently afebrile with no leukocytosis hemoglobin of 16.4. Patient's creatinine is 0.89 which is similar to her baseline. Head CT was negative for any acute intracranial process. Patient was treated with 10 of hydralazine, L of lactated Ringer's, and 20 of lisinopril. Patient was offered admission for hypertension and urinary tract infection because patient was still having some symptoms of wooziness. Patient was able to ambulate in the emergency department and did feel improved. On a another re-evaluation patient states that she prefers to be discharged home. Patient will be started on Keflex for possible urinary tract infection and patient was advised to increase her lisinopril. Patient will have follow-up with her primary care physician to determine if she needs any additional medication changes. Differential Diagnosis Differential Diagnosis: Hypertension, subdural hematoma, subarachnoid hemorrhage, Vital Signs Vital Signs: Vital Signs Temperature 98.0 F 05/08/25 11:19 Pulse Rate 105 H 05/08/25 11:19 Respiratory Rate 14 05/08/25 11:19 Blood Pressure 152/91 H 05/08/25 11:19 Pulse Oximetry 96 05/08/25 11:19 Oxygen Delivery Room Air 05/08/25 11:19 Temperature 98.0 F 05/08/25 11:19 Pulse Rate 95 05/08/25 16:30 Respiratory Rate 16 05/08/25 16:30 Blood Pressure 169/69 H 05/08/25 16:30 Pulse Oximetry 95 05/08/25 16:30 Oxygen Delivery Room Air 05/08/25 11:19 Lab Data Lab results reviewed: Yes I reviewed the patient's lab results. 05/08/25 12:44 05/08/25 12:44 Labs: Lab Results 05/08/25 05/08/25 Range/Units 12:44 14:55 WBC 5.6 (4.5-10.0) K/mm3 RBC 5.42 H (4.2-5.4) M/mm3 Hgb 16.4 H (12.0-15.0) g/dL Hct 50.0 H (37.0-47.0) % MCV 92.3 (80-100) fl MCH 30.3 (26-34) pg MCHC 32.8 (32-36) g/dl RDW 13.5 (11.5-14.5) % Plt Count 210 (150-375) k/mm3 MPV 10.1 (7.4-10.4) fl Immature Gran % (Auto) 0.2 (0-0.5) % Neut % (Auto) 63.0 (45.5-73.1) % Lymph % (Auto) 27.8 (18.3-44.2) % [place] % (Auto) 5.9 (2.6-8.5) % Eos % (Auto) 2.0 (0-4.4) % Baso % (Auto) 1.1 (0.2-1.2) % Lymph # (Auto) 1.56 (0.9-3.2) K/mm3 [place] # (Auto) 0.3 (0.1-0.6) K/mm3 Eos # (Auto) 0.1 (0-0.3) K/mm3 Baso # (Auto) 0.1 (0.0-0.1) K/mm3 Abs Immat Gran (auto) 0.01 (0.00-0.031) K/mm3 Absolute Neuts (auto) 3.5 (1.3-6.7) K/mm3 Absolute Nucleated RBC 0.000 (0.0-0.012) K/mm3 Nucleated RBC % 0.0 (0.0-0.2) % PT 13.2 (11.1-14.7) Seconds INR 1.0 APTT 28.2 (22.3-36.8) Seconds Sodium 139 (137-145) mmol/L Potassium 4.1 (3.4-5.0) mmol/L Chloride 105 (98-107) mmol/L Carbon Dioxide 23 (22-30) mmol/L Anion Gap 11 (4-12) mmol/L BUN 18 H (7-17) mg/dL Creatinine 0.89 (0.7-1.0) mg/dL Estim Creat Clear Calc 50 ml/min Estimated GFR > 60 (59 - ) Glucose 102 (65-110) mg/dL Calcium 9.8 (8.4-10.2) mg/dL Total Bilirubin 1.2 (0.2-1.3) mg/dL AST 42 H (14-36) U/L ALT 24 (6-35) U/L Alkaline Phosphatase 96 (38-126) U/L Total Protein 8.4 H (6.3-8.2) g/dL Albumin 4.4 (3.5-5.1) g/dL Urine Color Yellow (Yellow) Urine Appearance Turbid H (Clear) Urine pH 5.0 (5.0-9.0) Ur Specific [place] 1.016 (1.001-1.035) Urine Protein Negative (Negative) mg/dL Urine Glucose (UA) Negative (Negative) mg/dL Urine Ketones Negative (Negative) mg/dL Ur Blood (Man) Negative (Negative) Urine Nitrate Negative (Negative) Urine Bilirubin Negative (Negative) Urine Urobilinogen 0.2 (<2.0) mg/dL Leukocyte Esterase Rfl 2+ H (Negative) ASHA/UL Urine RBC 0-2 (0-2) /hpf Urine WBC 21-50 H (0-3) /hpf Ur Squamous Epith Cells Moderate (Few) /hpf Urine Bacteria 3+ H /hpf Urine Casts 0-2 Imaging Data Radiologist's impression: Impressions Head CT 05/08/25 13:12 IMPRESSION: 1. Mild scattered white matter hypoattenuation consistent with chronic small vessel ischemic disease. No acute intracranial process. Discharge Plan Discharge Clinical Impression: Urinary tract infection Hypertension Qualifiers: Hypertension type: primary hypertension Qualified Code(s): I10 - Essential (primary) hypertension Patient Disposition: Home Condition: Stable Instructions: Antibiotic Form Additional Instructions: You were offered admission but preferred to be discharged home. Antibiotic as directed until completed. Increase your lisinopril to 20 mg daily. Have close follow-up with your primary care physician. If you have any worsening symptoms please call or return to the emergency department. Patient Language: Divehi Prescriptions: New lisinopril 20 mg tablet 20 mg PO DAILY 14 Days Qty: 14 0RF cephalexin 500 mg capsule 500 mg PO Q8H 7 Days Qty: 21 0RF No Action ergocalciferol (vitamin D2) 1,250 mcg (50,000 unit) capsule 50,000 unit PO WEEKLY Qty: 12 3RF estradiol [Estrace] 0.01 % (0.1 mg/gram) Cream 1 g VAGINAL WEEKLY esomeprazole magnesium 40 mg capsule,delayed release(DR/EC) 40 mg PO DAILY Qty: 30 6RF escitalopram oxalate 10 mg tablet 10 mg PO DAILY Qty: 90 1RF rosuvastatin 20 mg tablet 20 mg PO DAILY Qty: 90 1RF nortriptyline 50 mg capsule 100 mg PO DAILY Qty: 180 0RF lisinopril 5 mg tablet 5 mg PO DAILY Qty: 90 1RF Follow-up/Referrals: El Hawley MD [Primary Care Provider, Family Practice]
[2025-05-08] MEDS: LACTATED RINGERS 1,000 ML 999 ML IV CONT (14:51)
[2025-05-08 15:03] LABS: Add Urine Microscopic? YES; Appearance Urine Turbid (Clear); Glucose Urine UA Negative (Negative); Leukocyte Esterase Ur 2+ LEU/UL (Negative); Nitrate Urine Negative (Negative); Non Pathogenic Casts 0-2; Specific Grav Ur 1.016 (1.001-1.035)
[2025-05-08] MEDS: CEPHALEXIN 500 MG CAPSULE PO (16:25)
== END 2025-05-08 16:35 | disposition home or self-care (01) ==
PROVIDERS: Emergency Provider Emergency Medicine; PCP Family Medicine
DX: I10 Essential (primary) hypertension (principal); N39.0 Urinary tract infection, site not specified; I25.10 Atherosclerotic heart disease of native coronary artery without angina pectoris; I25.2 Old myocardial infarction; E78.5 Hyperlipidemia, unspecified; Z87.891 Personal history of nicotine dependence; F12.90 Cannabis use, unspecified, uncomplicated
CPT/HCPCS: 36415; 70450; 80053; 81001; 85025; 85610; 85730; 93005; 96361; 96374; 99284; A9270; J0360; J7120